=== PATIENT | female | born 1935 | race Caucasian/White ===

== ENCOUNTER → 2018-02-05 08:35 | Outpatient (REF) | payer MEDICARE, SELFPAY ==
[2018-02-05 09:26] LABS: Add Manual Diff / Slide Review NO; Basophils Percent Auto 1.4 % (0-2); Eosinophils Percent Auto 10.1 % (2-4); Hematocrit 40.4 % (36-46); Hemoglobin 13.2 g/dL (12.0-16.0); Lymphocytes Percent Auto 16.2 % (25-40); Mean Corpuscular HGB Conc 32.8 % (30-36); Mean Corpuscular Hemoglobin 28.8 PG (26-34); Mean Corpuscular Volume 87.8 fL (80-100); Neutrophils Absolute Auto 6100 /uL (3000-5900); Neutrophils Percent Auto 65.3 % (50-75); Platelet Count 229 X10^3/uL (150-400); Red Cell Distribution Width 14.6 % (11.6-14.8); White Blood Cell Count 9.4 X10^3/uL (4.5-11.0)
== END ==
LOC: LAB 08:35
PROVIDERS: Visit Provider Internal Medicine
DX: Z79.899 Other long term (current) drug therapy (principal)
CPT/HCPCS: 36415; 85025

== ENCOUNTER → 2018-04-07 08:03 | Outpatient (REF) | payer MEDICARE, SELFPAY ==
[2018-04-07 09:22] LABS: Hematocrit 39.9 % (36-46); Hemoglobin 12.7 g/dL (12.0-16.0)
== END ==
LOC: LAB 08:03
PROVIDERS: Visit Provider Nurse Practitioner Family
DX: Z79.899 Other long term (current) drug therapy (principal)
CPT/HCPCS: 36415; 85014; 85018

== ENCOUNTER → 2018-05-17 09:02 | Outpatient (REF) | payer MEDICARE, SELFPAY ==
[2018-05-17 09:22] LABS: Add Manual Diff / Slide Review NO; Basophils Percent Auto 1.2 % (0-2); Eosinophils Percent Auto 3.2 % (2-4); Hematocrit 36.4 % (36-46); Hemoglobin 11.8 g/dL (12.0-16.0); Lymphocytes Percent Auto 16.4 % (25-40); Mean Corpuscular HGB Conc 32.4 % (30-36); Mean Corpuscular Hemoglobin 29.7 PG (26-34); Mean Corpuscular Volume 91.7 fL (80-100); Monocytes Percent Auto 6.4 % (3-14); Neutrophils Absolute Auto 8000 /uL (3000-5900); Neutrophils Percent Auto 72.8 % (50-75); Platelet Count 201 X10^3/uL (150-400); Red Blood Cell Count 3.97 X10^6/uL (4.0-5.2); Red Cell Distribution Width 14.4 % (11.6-14.8); White Blood Cell Count 10.9 X10^3/uL (4.5-11.0)
[2018-05-17 09:38] LABS: Blood Urea Nitrogen 26 mg/dL (7-17); Calcium 8.7 mg/dL (8.4-10.2); Carbon Dioxide 30 mmol/L (22-32); Chloride 106 mmol/L (98-107); Estimated Glomerular Filt Rate 53.1 mL/min (>60); Glucose 78 mg/dL (80-110); HEMOLYSIS < 15 (0-50); Potassium 4.2 mmol/L (3.4-5.1); Sodium 145 mmol/L (137-145)
== END ==
LOC: LAB 09:02
PROVIDERS: Visit Provider Nurse Practitioner Family
DX: I10 Essential (primary) hypertension (principal); L40.9 Psoriasis, unspecified; Z92.29 Personal history of other drug therapy
CPT/HCPCS: 36415; 80048; 85025

== ENCOUNTER → 2018-06-02 10:35 | Outpatient (REF) | payer MEDICARE, SELFPAY ==
[2018-06-02 11:03] LABS: Hemoglobin 11.3 g/dL (12.0-16.0)
[2018-06-02 11:16] LABS: Hemoglobin A1C% w Est Avg Glu 5.4 % (4.0-6.0)
== END ==
LOC: LAB 10:35
PROVIDERS: Visit Provider Nurse Practitioner Family
DX: E11.9 Type 2 diabetes mellitus without complications (principal); Z92.29 Personal history of other drug therapy
CPT/HCPCS: 36415; 83036; 85014; 85018

== ENCOUNTER → 2018-06-07 07:00 | Outpatient (REF) | payer MEDICARE, SELFPAY ==
[2018-06-07 07:44] LABS: Add Manual Diff / Slide Review NO; Basophils Percent Auto 0.6 % (0-2); Eosinophils Percent Auto 1.4 % (2-4); Hematocrit 41.6 % (36-46); Hemoglobin 13.3 g/dL (12.0-16.0); Lymphocytes Percent Auto 11.4 % (25-40); Mean Corpuscular HGB Conc 32.1 % (30-36); Mean Corpuscular Hemoglobin 30.3 PG (26-34); Mean Corpuscular Volume 94.6 fL (80-100); Monocytes Percent Auto 6.8 % (3-14); Neutrophils Absolute Auto 9600 /uL (3000-5900); Neutrophils Percent Auto 79.8 % (50-75); Platelet Count 83 X10^3/uL (150-400); Red Cell Distribution Width 14.5 % (11.6-14.8)
[2018-06-07 07:59] LABS: BUN Creatinine Ratio 25.6 (6-22); Blood Urea Nitrogen 23 mg/dL (7-17); Calcium 8.6 mg/dL (8.4-10.2); Carbon Dioxide 35 mmol/L (22-32); Chloride 102 mmol/L (98-107); Estimated Glomerular Filt Rate 59.9 mL/min (>60); Glucose 114 mg/dL (80-110); Potassium 5.3 mmol/L (3.4-5.1); Sodium 146 mmol/L (137-145)
[2018-06-07 08:12] LABS: HEMOLYSIS 117 (0-50)
== END ==
LOC: LAB 07:00
PROVIDERS: Visit Provider Internal Medicine
DX: J18.9 Pneumonia, unspecified organism (principal)
CPT/HCPCS: 36415; 80048; 83880; 85025

== ENCOUNTER → 2018-06-18 07:43 | Outpatient (REF) | payer MEDICARE, SELFPAY ==
[2018-06-18 08:05] LABS: Add Manual Diff / Slide Review NO; Basophils Percent Auto 0.8 % (0-2); Eosinophils Percent Auto 1.9 % (2-4); Hematocrit 36.7 % (36-46); Hemoglobin 11.6 g/dL (12.0-16.0); Lymphocytes Percent Auto 15.3 % (25-40); Mean Corpuscular HGB Conc 31.7 % (30-36); Mean Corpuscular Hemoglobin 29.6 PG (26-34); Mean Corpuscular Volume 93.2 fL (80-100); Monocytes Percent Auto 8.2 % (3-14); Neutrophils Absolute Auto 9500 /uL (3000-5900); Neutrophils Percent Auto 73.8 % (50-75); Platelet Count 181 X10^3/uL (150-400); Red Blood Cell Count 3.93 X10^6/uL (4.0-5.2); Red Cell Distribution Width 14.3 % (11.6-14.8); White Blood Cell Count 12.8 X10^3/uL (4.5-11.0)
[2018-06-18 08:25] LABS: Alanine Aminotransferase 39 IU/L (9-52); Albumin 3.3 g/dL (3.5-5.0); Albumin Globulin Ratio 1.2 (1.0-2.8); Aspartate Aminotransferase 25 IU/L (14-36); Bilirubin Total 0.6 mg/dL (0.2-1.3); Blood Urea Nitrogen 27 mg/dL (7-17); Calcium 8.4 mg/dL (8.4-10.2); Chloride 97 mmol/L (98-107); Estimated Glomerular Filt Rate 59.9 mL/min (>60); Globulin 2.7 g/dL (1.7-4.1); Glucose 91 mg/dL (80-110); HEMOLYSIS < 15 (0-50); Potassium 4.2 mmol/L (3.4-5.1); Sodium 144 mmol/L (137-145)
[2018-06-18 08:27] LABS: Alkaline Phosphatase < 20 U/L (38-126)
[2018-06-18 08:34] LABS: Carbon Dioxide 39 mmol/L (22-32)
[2018-06-18 08:43] LABS: B Type Natriuretic Peptide < 100.0 (<100)
[2018-06-18 08:48] LABS: Thyroid Stimulating Hormone 0.98 uIU/mL (0.47-4.68)
== END ==
LOC: LAB 07:43
PROVIDERS: Visit Provider Internal Medicine
DX: J44.9 Chronic obstructive pulmonary disease, unspecified (principal); I50.9 Heart failure, unspecified
CPT/HCPCS: 36415; 80053; 83880; 84443; 85025

== ENCOUNTER → 2018-06-25 07:04 | Outpatient (REF) | payer MEDICARE, SELFPAY ==
[2018-06-25 07:33] LABS: Blood Urea Nitrogen 24 mg/dL (7-17); Calcium 8.7 mg/dL (8.4-10.2); Chloride 99 mmol/L (98-107); Estimated Glomerular Filt Rate 53.1 mL/min (>60); Glucose 125 mg/dL (80-110); HEMOLYSIS < 15 (0-50); Potassium 4.5 mmol/L (3.4-5.1); Sodium 144 mmol/L (137-145)
[2018-06-25 07:55] LABS: Carbon Dioxide 37 mmol/L (22-32)
== END ==
LOC: LAB 07:04
PROVIDERS: Visit Provider Internal Medicine
DX: I50.9 Heart failure, unspecified (principal)
CPT/HCPCS: 36415; 80048

== ENCOUNTER → 2018-08-03 16:03 | Outpatient (REF) | payer MEDICARE, SELFPAY ==
[2018-08-03 18:17] LABS: Campylobacter Not Detected (Not Detect); Clostridium difficile toxin AB Not Detected (Not Detect); Enteroaggregative E.coli Not Detected (Not Detect); Enteropathogenic E.coli Detected (Not Detect); Enterotoxigenic E.coli It/st Not Detected (Not Detect); Plesiomonsa shigelloides Not Detected (Not Detect); Salmonella Not Detected (Not Detect); Shiga-like toxin-prod E.coli Not Detected (Not Detect); Vibrio Not Detected (Not Detect); Vibrio cholerae Not Detected (Not Detect); Yersinia enterocolitica Not Detected (Not Detect)
[2018-08-03 18:18] LABS: Adenovirus F 40/41 Not Detected (Not Detect); Astrovirus Not Detected (Not Detect); Cryptosporidium Not Detected (Not Detect); Cyclospora cayetanensis Not Detected (Not Detect); Entamoeba histolytica Not Detected (Not Detect); Giardia lamblia Not Detected (Not Detect); Norovirus GI/GII Not Detected (Not Detect); Rotavirus A Not Detected (Not Detect); Sapovirus Not Detected (Not Detect); Shigella/Enteroinvasive E.coli Not Detected (Not Detect)
== END ==
LOC: LAB 16:03
PROVIDERS: Visit Provider Internal Medicine
DX: R19.7 Diarrhea, unspecified (principal)
CPT/HCPCS: 87507

== ENCOUNTER → 2018-08-04 08:04 | Outpatient (REF) | payer MEDICARE, SELFPAY ==
[2018-08-04 08:37] LABS: Add Manual Diff / Slide Review NO; Basophils Percent Auto 0.9 % (0-2); Eosinophils Percent Auto 4.5 % (2-4); Hematocrit 34.3 % (36-46); Hemoglobin 11.3 g/dL (12.0-16.0); Lymphocytes Percent Auto 16.4 % (25-40); Mean Corpuscular Hemoglobin 29.9 PG (26-34); Mean Corpuscular Volume 90.6 fL (80-100); Monocytes Percent Auto 7.1 % (3-14); Neutrophils Absolute Auto 6700 /uL (3000-5900); Neutrophils Percent Auto 71.1 % (50-75); Platelet Count 225 X10^3/uL (150-400); Red Blood Cell Count 3.78 X10^6/uL (4.0-5.2); Red Cell Distribution Width 14.5 % (11.6-14.8); White Blood Cell Count 9.4 X10^3/uL (4.5-11.0)
[2018-08-04 08:55] LABS: Alanine Aminotransferase 22 IU/L (9-52); Albumin 3.6 g/dL (3.5-5.0); Albumin Globulin Ratio 1.3 (1.0-2.8); Alkaline Phosphatase 25 U/L (38-126); Aspartate Aminotransferase 25 IU/L (14-36); Bilirubin Total 0.4 mg/dL (0.2-1.3); Blood Urea Nitrogen 25 mg/dL (7-17); Calcium 8.7 mg/dL (8.4-10.2); Carbon Dioxide 32 mmol/L (22-32); Chloride 101 mmol/L (98-107); Estimated Glomerular Filt Rate 53.1 mL/min (>60); Globulin 2.8 g/dL (1.7-4.1); Glucose 142 mg/dL (80-110); HEMOLYSIS < 15 (0-50); Potassium 4.1 mmol/L (3.4-5.1); Sodium 143 mmol/L (137-145); Total Protein 6.4 g/dL (6.3-8.2)
[2018-08-04 09:23] LABS: Thyroid Stimulating Hormone 2.19 uIU/mL (0.47-4.68)
== END ==
LOC: LAB 08:04
PROVIDERS: Visit Provider Nurse Practitioner Family
DX: I50.9 Heart failure, unspecified (principal); D72.829 Elevated white blood cell count, unspecified; E11.9 Type 2 diabetes mellitus without complications; R19.7 Diarrhea, unspecified; R53.1 Weakness
CPT/HCPCS: 36415; 80053; 83880; 84443; 85025

== ENCOUNTER → 2018-10-01 07:36 | Outpatient (REF) | payer MEDICARE, SELFPAY ==
[2018-10-01 09:14] LABS: Add Manual Diff / Slide Review NO; Basophils Percent Auto 1.2 % (0-2); Hematocrit 35.4 % (36-46); Hemoglobin 11.6 g/dL (12.0-16.0); Lymphocytes Percent Auto 17.6 % (25-40); Mean Corpuscular HGB Conc 32.7 % (30-36); Mean Corpuscular Hemoglobin 29.8 PG (26-34); Mean Corpuscular Volume 91.3 fL (80-100); Monocytes Percent Auto 8.2 % (3-14); Neutrophils Absolute Auto 6300 /uL (1500-7000); Platelet Count 227 X10^3/uL (150-400); Red Blood Cell Count 3.88 X10^6/uL (4.0-5.2); Red Cell Distribution Width 13.6 % (11.6-14.8); White Blood Cell Count 9.1 X10^3/uL (4.5-11.0)
[2018-10-01 09:23] LABS: Hemoglobin A1C% w Est Avg Glu 5.8 % (4.0-6.0)
[2018-10-01 09:31] LABS: Alanine Aminotransferase 21 IU/L (9-52); Albumin 3.6 g/dL (3.5-5.0); Albumin Globulin Ratio 1.2 (1.0-2.8); Alkaline Phosphatase 26 U/L (38-126); Aspartate Aminotransferase 18 IU/L (14-36); Bilirubin Total 0.4 mg/dL (0.2-1.3); Blood Urea Nitrogen 27 mg/dL (7-17); Calcium 8.9 mg/dL (8.4-10.2); Carbon Dioxide 31 mmol/L (22-32); Chloride 102 mmol/L (98-107); Cholesterol 134 mg/dL (140-199); Glucose 111 mg/dL (80-110); HDL Cholesterol 40 mg/dL (40-60); HEMOLYSIS < 15 (0-50); LDL Cholesterol Calculated 66 mg/dL (<100); Sodium 141 mmol/L (137-145); Total Protein 6.6 g/dL (6.3-8.2); Triglycerides 139 mg/dL (35-150)
[2018-10-01 10:15] LABS: Vitamin B12 729 pg/mL (239-931)
== END ==
LOC: LAB 07:36
PROVIDERS: Visit Provider Internal Medicine
DX: E11.9 Type 2 diabetes mellitus without complications (principal); R79.89 Other specified abnormal findings of blood chemistry; E53.8 Deficiency of other specified B group vitamins
CPT/HCPCS: 36415; 80053; 80061; 82607; 83036; 85025

== ENCOUNTER → 2018-12-24 08:52 | Outpatient (REF) | payer MEDICARE, SELFPAY ==
[2018-12-24 09:32] LABS: Add Manual Diff / Slide Review NO; Basophils Absolute Auto 100 /uL (0-100); Basophils Percent Auto 1.4 % (0-2); Eosinophils Absolute Auto 300 /uL (0-450); Eosinophils Percent Auto 2.8 % (2-4); Hemoglobin 12.3 g/dL (12.0-16.0); Lymphocytes Absolute Auto 1700 /uL (1100-4500); Lymphocytes Percent Auto 18.4 % (25-40); Mean Corpuscular HGB Conc 32.3 % (30-36); Mean Corpuscular Hemoglobin 29.2 PG (26-34); Mean Corpuscular Volume 90.1 fL (80-100); Monocytes Absolute Auto 800 /uL (0-900); Monocytes Percent Auto 8.3 % (3-14); Neutrophils Absolute Auto 6500 /uL (1500-7000); Neutrophils Percent Auto 69.1 % (50-75); Platelet Count 232 X10^3/uL (150-400); Red Blood Cell Count 4.22 X10^6/uL (4.0-5.2); Red Cell Distribution Width 13.9 % (11.6-14.8); White Blood Cell Count 9.4 X10^3/uL (4.5-11.0)
[2018-12-24 10:00] LABS: Hemoglobin A1C% w Est Avg Glu 6.6 % (4.0-6.0)
[2018-12-24 10:08] LABS: BUN Creatinine Ratio 23.6 (6-22); Blood Urea Nitrogen 26 mg/dL (7-17); Calcium 8.8 mg/dL (8.4-10.2); Carbon Dioxide 31 mmol/L (22-32); Chloride 101 mmol/L (98-107); Estimated Glomerular Filt Rate 47.4 mL/min (>60); Glucose 169 mg/dL (80-110); HEMOLYSIS < 15 (0-50); Potassium 4.1 mmol/L (3.4-5.1); Sodium 142 mmol/L (137-145)
== END ==
LOC: LAB 08:52
PROVIDERS: Visit Provider Nurse Practitioner Family
DX: I10 Essential (primary) hypertension (principal); E11.9 Type 2 diabetes mellitus without complications; L40.9 Psoriasis, unspecified
CPT/HCPCS: 36415; 80048; 83036; 85025

== ENCOUNTER → 2019-02-02 08:38 | Outpatient (ROUT) | payer MEDICARE, SELFPAY ==
[2019-02-02 11:38] LABS: BUN Creatinine Ratio 22.7 (6-22); Blood Urea Nitrogen 25 mg/dL (7-17); Calcium 8.6 mg/dL (8.4-10.2); Carbon Dioxide 34 mmol/L (22-32); Chloride 97 mmol/L (98-107); Estimated Glomerular Filt Rate 47.4 mL/min (>60); Glucose 206 mg/dL (80-110); HEMOLYSIS < 15 (0-50); Potassium 4.1 mmol/L (3.4-5.1); Sodium 140 mmol/L (137-145)
== END ==
PROVIDERS: Visit Provider Nurse Practitioner Family
DX: N18.9 Chronic kidney disease, unspecified (principal)
CPT/HCPCS: 36415; 80048

== ENCOUNTER → 2019-03-25 08:42 | Outpatient (ROUT) | payer MEDICARE, SELFPAY ==
[2019-03-25 09:54] LABS: Blood Urea Nitrogen 29 mg/dL (7-17); Calcium 8.8 mg/dL (8.4-10.2); Carbon Dioxide 35 mmol/L (22-32); Chloride 101 mmol/L (98-107); Glucose 131 mg/dL (80-110); HEMOLYSIS < 15 (0-50); Potassium 4.5 mmol/L (3.4-5.1); Sodium 143 mmol/L (137-145)
== END ==
PROVIDERS: Visit Provider Registered Nurse
DX: N18.9 Chronic kidney disease, unspecified (principal)
CPT/HCPCS: 36415; 80048

== ENCOUNTER → 2019-05-09 07:21 | Outpatient (ROUT) | payer MEDICARE, SELFPAY ==
[2019-05-09 07:45] LABS: Add Manual Diff / Slide Review NO; Basophils Absolute Auto 100 /uL (0-100); Basophils Percent Auto 0.9 % (0-2); Eosinophils Absolute Auto 400 /uL (0-450); Eosinophils Percent Auto 3.8 % (2-4); Hematocrit 38.2 % (36-46); Hemoglobin 12.6 g/dL (12.0-16.0); Lymphocytes Absolute Auto 2000 /uL (1100-4500); Lymphocytes Percent Auto 18.7 % (25-40); Mean Corpuscular HGB Conc 32.9 % (30-36); Mean Corpuscular Hemoglobin 29.4 PG (26-34); Mean Corpuscular Volume 89.4 fL (80-100); Monocytes Absolute Auto 800 /uL (0-900); Neutrophils Absolute Auto 7200 /uL (1500-7000); Neutrophils Percent Auto 68.6 % (50-75); Platelet Count 191 X10^3/uL (150-400); Red Blood Cell Count 4.28 X10^6/uL (4.0-5.2); Red Cell Distribution Width 14.6 % (11.6-14.8); White Blood Cell Count 10.4 X10^3/uL (4.5-11.0)
[2019-05-09 07:49] LABS: Hemoglobin A1C% w Est Avg Glu 6.9 % (4.0-6.0)
[2019-05-09 07:56] LABS: Blood Urea Nitrogen 28 mg/dL (7-17); Calcium 8.9 mg/dL (8.4-10.2); Carbon Dioxide 35 mmol/L (22-32); Chloride 100 mmol/L (98-107); Glucose 174 mg/dL (80-110); HEMOLYSIS < 15 (0-50); Potassium 4.2 mmol/L (3.4-5.1); Sodium 141 mmol/L (137-145)
== END ==
PROVIDERS: Visit Provider Registered Nurse
DX: L40.9 Psoriasis, unspecified (principal); N18.9 Chronic kidney disease, unspecified; E11.9 Type 2 diabetes mellitus without complications; Z79.899 Other long term (current) drug therapy
CPT/HCPCS: 36415; 80048; 83036; 85025

== ENCOUNTER → 2019-06-15 08:21 | Outpatient (ROUT) | payer MEDICARE, SELFPAY ==
[2019-06-15 08:37] LABS: Hematocrit 38.6 % (36-46); Hemoglobin 12.2 g/dL (12.0-16.0)
== END ==
PROVIDERS: Visit Provider Nurse Practitioner Family
DX: Z79.899 Other long term (current) drug therapy (principal)
CPT/HCPCS: 36415; 85014; 85018

== ENCOUNTER → 2019-06-20 09:28 | Outpatient (ROUT) | payer MEDICARE, SELFPAY ==
[2019-06-20 10:51] LABS: Add Manual Diff / Slide Review NO; Basophils Absolute Auto 100 /uL (0-100); Basophils Percent Auto 0.9 % (0-2); Eosinophils Absolute Auto 800 /uL (0-450); Eosinophils Percent Auto 7.5 % (2-4); Hematocrit 38.2 % (36-46); Hemoglobin 12.5 g/dL (12.0-16.0); Lymphocytes Absolute Auto 2100 /uL (1100-4500); Lymphocytes Percent Auto 20.5 % (25-40); Mean Corpuscular HGB Conc 32.8 % (30-36); Mean Corpuscular Hemoglobin 29.4 PG (26-34); Mean Corpuscular Volume 89.8 fL (80-100); Monocytes Absolute Auto 800 /uL (0-900); Monocytes Percent Auto 7.7 % (3-14); Neutrophils Absolute Auto 6400 /uL (1500-7000); Neutrophils Percent Auto 63.4 % (50-75); Platelet Count 214 X10^3/uL (150-400); Red Blood Cell Count 4.26 X10^6/uL (4.0-5.2); Red Cell Distribution Width 15.2 % (11.6-14.8); White Blood Cell Count 10.2 X10^3/uL (4.5-11.0)
[2019-06-20 11:10] LABS: Blood Urea Nitrogen 30 mg/dL (7-17); Calcium 8.8 mg/dL (8.4-10.2); Carbon Dioxide 36 mmol/L (22-32); Chloride 96 mmol/L (98-107); Glucose 188 mg/dL (80-110); HEMOLYSIS < 15 (0-50); Sodium 140 mmol/L (137-145)
== END ==
PROVIDERS: Visit Provider Nurse Practitioner Family
DX: R60.9 Edema, unspecified (principal); R06.02 Shortness of breath
CPT/HCPCS: 36415; 80048; 85025

== ENCOUNTER → 2019-07-08 07:17 | Outpatient (ROUT) | payer MEDICARE, SELFPAY ==
[2019-07-08 08:12] LABS: Add Manual Diff / Slide Review NO; Basophils Absolute Auto 100 /uL (0-100); Basophils Percent Auto 0.9 % (0-2); Eosinophils Absolute Auto 700 /uL (0-450); Eosinophils Percent Auto 6.2 % (2-4); Hematocrit 39.1 % (36-46); Hemoglobin 12.7 g/dL (12.0-16.0); Lymphocytes Absolute Auto 1900 /uL (1100-4500); Lymphocytes Percent Auto 17.7 % (25-40); Mean Corpuscular HGB Conc 32.3 % (30-36); Mean Corpuscular Hemoglobin 29.4 PG (26-34); Mean Corpuscular Volume 90.8 fL (80-100); Monocytes Absolute Auto 900 /uL (0-900); Monocytes Percent Auto 8.1 % (3-14); Neutrophils Absolute Auto 7200 /uL (1500-7000); Neutrophils Percent Auto 67.1 % (50-75); Platelet Count 214 X10^3/uL (150-400); Red Blood Cell Count 4.31 X10^6/uL (4.0-5.2); Red Cell Distribution Width 15.4 % (11.6-14.8); White Blood Cell Count 10.7 X10^3/uL (4.5-11.0)
[2019-07-08 08:22] LABS: BUN Creatinine Ratio 29.1 (6-22); Blood Urea Nitrogen 32 mg/dL (7-17); Calcium 8.9 mg/dL (8.4-10.2); Carbon Dioxide 32 mmol/L (22-32); Chloride 100 mmol/L (98-107); Estimated Glomerular Filt Rate 47.4 mL/min (>60); Glucose 211 mg/dL (80-110); HEMOLYSIS < 15 (0-50); Potassium 4.5 mmol/L (3.4-5.1); Sodium 138 mmol/L (137-145)
[2019-07-08 11:57] LABS: B Type Natriuretic Peptide 378 (<100)
== END ==
PROVIDERS: Visit Provider Nurse Practitioner Family
DX: Z79.899 Other long term (current) drug therapy (principal); J44.9 Chronic obstructive pulmonary disease, unspecified; I50.89 Other heart failure
CPT/HCPCS: 36415; 80048; 83880; 85025

== ENCOUNTER → 2019-08-10 07:29 | Outpatient (ROUT) | payer MEDICARE, SELFPAY ==
[2019-08-10 08:42] LABS: Add Manual Diff / Slide Review NO; Basophils Absolute Auto 100 /uL (0-100); Basophils Percent Auto 0.7 % (0-2); Eosinophils Absolute Auto 800 /uL (0-450); Eosinophils Percent Auto 8.8 % (2-4); Hematocrit 38.1 % (36-46); Hemoglobin 12.4 g/dL (12.0-16.0); Lymphocytes Absolute Auto 1600 /uL (1100-4500); Lymphocytes Percent Auto 17.2 % (25-40); Mean Corpuscular HGB Conc 32.7 % (30-36); Mean Corpuscular Hemoglobin 29.5 PG (26-34); Mean Corpuscular Volume 90.5 fL (80-100); Monocytes Absolute Auto 800 /uL (0-900); Neutrophils Absolute Auto 6200 /uL (1500-7000); Neutrophils Percent Auto 65.3 % (50-75); Platelet Count 202 X10^3/uL (150-400); Red Blood Cell Count 4.21 X10^6/uL (4.0-5.2); Red Cell Distribution Width 14.8 % (11.6-14.8); White Blood Cell Count 9.5 X10^3/uL (4.5-11.0)
[2019-08-10 08:54] LABS: BUN Creatinine Ratio 25.8 (6-22); Blood Urea Nitrogen 31 mg/dL (7-17); Calcium 9.1 mg/dL (8.4-10.2); Carbon Dioxide 35 mmol/L (22-32); Chloride 101 mmol/L (98-107); Estimated Glomerular Filt Rate 42.9 mL/min (>60); Glucose 160 mg/dL (80-110); HEMOLYSIS < 15 (0-50); Potassium 4.4 mmol/L (3.4-5.1); Sodium 142 mmol/L (137-145)
[2019-08-10 09:45] LABS: Vitamin B12 844 pg/mL (239-931)
== END ==
PROVIDERS: Visit Provider Nurse Practitioner Family
DX: R60.9 Edema, unspecified (principal); Z79.899 Other long term (current) drug therapy
CPT/HCPCS: 36415; 80048; 82607; 85025

== ENCOUNTER → 2019-09-12 07:50 | Outpatient (ROUT) | payer MEDICARE, SELFPAY ==
[2019-09-12 08:33] LABS: BUN Creatinine Ratio 21.8 (6-22); Blood Urea Nitrogen 24 mg/dL (7-17); Calcium 8.8 mg/dL (8.4-10.2); Carbon Dioxide 35 mmol/L (22-32); Chloride 101 mmol/L (98-107); Estimated Glomerular Filt Rate 47.3 mL/min (>60); Glucose 162 mg/dL (80-110); HEMOLYSIS < 15 (0-50); Potassium 4.3 mmol/L (3.4-5.1); Sodium 141 mmol/L (137-145)
== END ==
PROVIDERS: Visit Provider Registered Nurse
DX: N17.9 Acute kidney failure, unspecified (principal)
CPT/HCPCS: 36415; 80048

== ENCOUNTER → 2019-09-23 07:33 | Outpatient (ROUT) | payer MEDICARE, SELFPAY ==
[2019-09-23 09:05] LABS: Blood Urea Nitrogen 24 mg/dL (7-17); Calcium 8.7 mg/dL (8.4-10.2); Carbon Dioxide 39 mmol/L (22-32); Chloride 99 mmol/L (98-107); Estimated Glomerular Filt Rate 52.8 mL/min (>60); Glucose 173 mg/dL (80-110); HEMOLYSIS < 15 (0-50); Potassium 4.1 mmol/L (3.4-5.1); Sodium 141 mmol/L (137-145)
== END ==
PROVIDERS: Visit Provider Internal Medicine
DX: Z98.890 Other specified postprocedural states (principal)
CPT/HCPCS: 36415; 80048

== ENCOUNTER → 2019-10-03 07:13 | Outpatient (ROUT) | payer MEDICARE, SELFPAY ==
[2019-10-03 10:11] LABS: BUN Creatinine Ratio 23.6 (6-22); Blood Urea Nitrogen 26 mg/dL (7-17); Calcium 8.9 mg/dL (8.4-10.2); Carbon Dioxide 35 mmol/L (22-32); Chloride 98 mmol/L (98-107); Estimated Glomerular Filt Rate 47.3 mL/min (>60); Glucose 162 mg/dL (80-110); HEMOLYSIS < 15 (0-50); Potassium 4.1 mmol/L (3.4-5.1); Sodium 138 mmol/L (137-145)
== END ==
PROVIDERS: Visit Provider Registered Nurse
DX: N17.9 Acute kidney failure, unspecified (principal)
CPT/HCPCS: 36415; 80048

== ENCOUNTER → 2019-11-04 07:29 | Outpatient (ROUT) | payer MEDICARE, SELFPAY ==
[2019-11-04 08:31] LABS: Blood Urea Nitrogen 23 mg/dL (7-17); Calcium 8.7 mg/dL (8.4-10.2); Carbon Dioxide 36 mmol/L (22-32); Chloride 98 mmol/L (98-107); Estimated Glomerular Filt Rate 52.8 mL/min (>60); Glucose 212 mg/dL (80-110); HEMOLYSIS < 15 (0-50); Sodium 140 mmol/L (137-145)
== END ==
PROVIDERS: Visit Provider Nurse Practitioner Family
DX: Z79.899 Other long term (current) drug therapy (principal)
CPT/HCPCS: 36415; 80048

== ENCOUNTER 2019-11-15 01:31 | Emergency (ER) | payer MEDICARE, SELFPAY ==
[2019-11-15 01:45] VITALS: BP 132/64; PULSE 59; RESP 20; TEMP 37; O2SAT 93; BMI 39.6
--- NOTE | 2019-11-15 01:50 | PC.NURSE ---
drawn by zhao mills
[2019-11-15] MEDS: SODIUM CHLORIDE 0.9% 1,000 ML 500 ML IV (01:58)
--- NOTE | 2019-11-15 02:02 | ED.GENADULT ---
HPI - General Adult General Chief complaint: Diabetic Problem Stated complaint: Elevated Blood sugar Time Seen by Provider: 11/15/19 01:36 Source: patient and EMS Mode of arrival: EMS Limitations: no limitations History of Present Illness HPI narrative: Patient is an 84-year-old female. Is an insulin-dependent type 2 diabetic. Also was on oxygen. Last evening during her regular blood sugar checks it was noticed that her blood sugar was reading high on the monitor at her nursing facility. She was dose multiple times with insulin per sliding scale when it still remained high. Patient has no complaints. It was felt that she should come to the emergency department for evaluation due to the continued high blood sugars. Related Data Allergies Allergy/AdvReac Type Severity Reaction Status Date / Time gabapentin [GABAPENTIN] Allergy Unknown DIZZINESS Unverified 12/30/17 11:59 NSAIDS (Non-Steroidal Allergy Unknown ADVISED TO Unverified 12/30/17 11:59 Anti-Inflamma AVOID [NSAIDS (NON-STEROIDAL ANTI-INFLAMMA] Review of Systems Constitutional Constitutional: Denies fever(s) and Denies headache(s) ENT Ears, Nose, Mouth, and Throat: Denies headache(s) Cardiovascular Cardiovascular: Denies chest pain, Denies rapid heart rate, Denies edema, Denies palpitations and Denies dyspnea Respiratory Respiratory: Denies cough and Denies dyspnea Gastrointestinal Gastrointestinal: Denies abdominal pain, Denies nausea and Denies vomiting Genitourinary Genitourinary: Denies dysuria Integumentary/Breasts Skin/Breast: Reports rash Neurologic Neurologic: Denies behavioral changes, Denies confusion, Denies headache(s) and Denies paresthesias Psychiatric Psychiatric: Denies behavioral changes and Denies confusion Endocrine Endocrine: Denies palpitations Hematologic/Lymphatic Hematologic/Lymphatic: Denies easy bleeding and Denies easy bruising Patient History Medical History Cerebral microvascular disease (Inactive) Diabetes (Acute) Insomnia (Inactive) Psoriasis (Acute) Social History Smoking Status: Former smoker Smoking Status: Former smoker alcohol intake frequency: 0-2 drinks per day Substance Use Type: does not use Exam Initial Vital Signs Initial Vital Signs: Vital Signs Temperature 98.6 F 11/15/19 01:45 Pulse Rate 59 L 11/15/19 01:45 Respiratory Rate 20 02/25/20 01:45 Blood Pressure 132/64 11/15/19 01:45 Pulse Oximetry 93 11/15/19 01:45 Const General: cooperative and comfortable Limitations: mental status not altered HENMT Head: normal to inspection and normocephalic Resp Effort & Inspection: normal respiratory effort Auscultation: clear to auscultation bilaterally Cardio Rate: regular rate Rhythm: regular rhythm GI Inspection: non-distended Palpation: soft Skin Other: Patient with psoriasis from her mid back down around her buttocks down the inside of her thighs. Has some areas of excoriation. There is no surrounding erythema. No signs of a superinfection over this area. Neuro General: alert, awake and oriented x3 Cognition: normal cognition Speech: speech normal Extrem General: normal to inspection and capillary refill normal Psych Appearance: well kempt Course Orders Ordered: ED Orders 11/15/19 01:50 Complete Blood Count AUTO DIFF Stat Comprehensive Metabolic Panel Stat Ketones (Beta-Hydroxybutyrate) Stat Lipase Stat Magnesium Stat Phosphorous Stat Procalcitonin Stat Troponin I Stat 11/15/19 02:35 XR chest 1V Stat 11/15/19 02:40 EKG-12 Lead Stat 11/15/19 03:50 Urinalysis and Microscopic Stat Urine Culture Stat 11/15/19 04:00 Glucose Stat Troponin I Stat Discontinued Medications Sodium Chloride (Normal Saline 0.9%) 1,000 mls @ 500 mls/hr IV BOLUS ONE Stop: 11/15/19 03:36 Last Infusion: 11/15/19 04:04 Dose: 0 mls/hr Documented by: Admin: 11/15/19 01:58 Dose: 500 mls/hr Documented by: TANI Vital Signs Vital signs: Vital Signs - 8 hr 11/15/19 01:45 Temperature 98.6 F Pulse Rate 59 L Respiratory Rate 20 Blood Pressure 132/64 Pulse Oximetry 93 Medical Decision Making Medical Records Medical records reviewed: Yes I reviewed the patient's medical records. Lab Data Lab results reviewed: Yes I reviewed the patient's lab results. Result diagrams: 11/15/19 01:50 11/15/19 04:00 Labs: Lab Results 11/15/19 11/15/19 11/15/19 Range/Units 01:50 01:50 01:50 WBC 14.0 H (4.5-11.0) X10^3/uL RBC 4.15 (4.0-5.2) X10^6/uL Hgb 12.8 (12.0-16.0) g/dL Hct 39.5 (36-46) % MCV 95.1 (80-100) fL MCH 30.8 (26-34) PG MCHC 32.4 (30-36) % RDW 14.4 (11.6-14.8) % Plt Count 206 (150-400) X10^3/uL Neut % (Auto) 85.9 H (50-75) % Lymph % (Auto) 7.3 L (25-40) % [place] % (Auto) 6.2 (3-14) % Eos % (Auto) 0.1 L (2-4) % Baso % (Auto) 0.5 (0-2) % Neut # (Auto) 90444 H (9329-2623) /uL Lymph # (Auto) 1000 L (0279-4852) /uL [place] # (Auto) 900 (0-900) /uL Eos # (Auto) 0 (0-450) /uL Baso # (Auto) 100 (0-100) /uL Sodium 137 (137-145) mmol/L Potassium 5.1 (3.4-5.1) mmol/L Chloride 95 L (98-107) mmol/L Carbon Dioxide 32 (22-32) mmol/L BUN 53 H (7-17) mg/dL Creatinine 1.60 H (0.52-1.04) mg/dL Estimated GFR 30.7 L (>60) mL/min BUN/Creatinine Ratio 33.1 H (6-22) Glucose 494 H* (80-110) mg/dL Calcium 8.9 (8.4-10.2) mg/dL Phosphorus 5.7 H (2.8-4.1) mg/dL Magnesium 2.4 H (1.6-2.3) mg/dL Total Bilirubin 0.4 (0.2-1.3) mg/dL AST 26 (14-36) IU/L ALT 19 (<35) IU/L Alkaline Phosphatase 29 L (38-126) U/L Troponin I 0.064 H (0.01-0.034) ng/mL Total Protein 7.6 (6.3-8.2) g/dL Albumin 3.9 (3.5-5.0) g/dL Globulin 3.7 (1.7-4.1) g/dL Albumin/Globulin Ratio 1.1 (1.0-2.8) Lipase 68 (23-300) U/L Procalcitonin (<0.5) ng/mL Urine Color Urine Appearance Urine pH (4.5-8.0) Ur Specific [place] (1.000-1.035) Urine Protein (Negative) Urine Glucose (UA) (Negative) g/dL Urine Ketones (NEGATIVE) Urine Occult Blood (Negative) Urine Nitrate (Negative) Urine Bilirubin (NEGATIVE) Urine Urobilinogen (0.2) E.U./dL Ur Leukocyte Esterase (NEGATIVE) Urine RBC (0-5/HPF) Urine WBC (0-5/HPF) Ur Squamous Epith Cells (0-5/HPF) Urine Bacteria (None) Ur Culture Indicated? Ketones 0.15 (<0.27) mmol/L 11/15/19 11/15/19 11/15/19 Range/Units 01:50 03:50 04:00 WBC (4.5-11.0) X10^3/uL RBC (4.0-5.2) X10^6/uL Hgb (12.0-16.0) g/dL Hct (36-46) % MCV (80-100) fL MCH (26-34) PG MCHC (30-36) % RDW (11.6-14.8) % Plt Count (150-400) X10^3/uL Neut % (Auto) (50-75) % Lymph % (Auto) (25-40) % [place] % (Auto) (3-14) % Eos % (Auto) (2-4) % Baso % (Auto) (0-2) % Neut # (Auto) (8190-9980) /uL Lymph # (Auto) (3721-8307) /uL [place] # (Auto) (0-900) /uL Eos # (Auto) (0-450) /uL Baso # (Auto) (0-100) /uL Sodium (137-145) mmol/L Potassium (3.4-5.1) mmol/L Chloride (98-107) mmol/L Carbon Dioxide (22-32) mmol/L BUN (7-17) mg/dL Creatinine (0.52-1.04) mg/dL Estimated GFR (>60) mL/min BUN/Creatinine Ratio (6-22) Glucose 321 H D (80-110) mg/dL Calcium (8.4-10.2) mg/dL Phosphorus (2.8-4.1) mg/dL Magnesium (1.6-2.3) mg/dL Total Bilirubin (0.2-1.3) mg/dL AST (14-36) IU/L ALT (<35) IU/L Alkaline Phosphatase (38-126) U/L Troponin I (0.01-0.034) ng/mL Total Protein (6.3-8.2) g/dL Albumin (3.5-5.0) g/dL Globulin (1.7-4.1) g/dL Albumin/Globulin Ratio (1.0-2.8) Lipase (23-300) U/L Procalcitonin 0.16 (<0.5) ng/mL Urine Color Yellow Urine Appearance Sl cloudy Urine pH 5.0 (4.5-8.0) Ur Specific [place] 1.020 (1.000-1.035) Urine Protein Trace H (Negative) Urine Glucose (UA) 2+ H (Negative) g/dL Urine Ketones Negative (NEGATIVE) Urine Occult Blood 3+ H (Negative) Urine Nitrate Negative (Negative) Urine Bilirubin Negative (NEGATIVE) Urine Urobilinogen 0.2 (0.2) E.U./dL Ur Leukocyte Esterase Negative (NEGATIVE) Urine RBC 10-30/hpf H (0-5/HPF) Urine WBC 5-10/hpf H (0-5/HPF) Ur Squamous Epith Cells 5-10 /hpf H (0-5/HPF) Urine Bacteria Few (2-10) H (None) Ur Culture Indicated? Culture not indicate Ketones (<0.27) mmol/L 11/15/19 Range/Units 04:00 WBC (4.5-11.0) X10^3/uL RBC (4.0-5.2) X10^6/uL Hgb (12.0-16.0) g/dL Hct (36-46) % MCV (80-100) fL MCH (26-34) PG MCHC (30-36) % RDW (11.6-14.8) % Plt Count (150-400) X10^3/uL Neut % (Auto) (50-75) % Lymph % (Auto) (25-40) % [place] % (Auto) (3-14) % Eos % (Auto) (2-4) % Baso % (Auto) (0-2) % Neut # (Auto) (4143-1580) /uL Lymph # (Auto) (2847-0359) /uL [place] # (Auto) (0-900) /uL Eos # (Auto) (0-450) /uL Baso # (Auto) (0-100) /uL Sodium (137-145) mmol/L Potassium (3.4-5.1) mmol/L Chloride (98-107) mmol/L Carbon Dioxide (22-32) mmol/L BUN (7-17) mg/dL Creatinine (0.52-1.04) mg/dL Estimated GFR (>60) mL/min BUN/Creatinine Ratio (6-22) Glucose (80-110) mg/dL Calcium (8.4-10.2) mg/dL Phosphorus (2.8-4.1) mg/dL Magnesium (1.6-2.3) mg/dL Total Bilirubin (0.2-1.3) mg/dL AST (14-36) IU/L ALT (<35) IU/L Alkaline Phosphatase (38-126) U/L Troponin I 0.069 H (0.01-0.034) ng/mL Total Protein (6.3-8.2) g/dL Albumin (3.5-5.0) g/dL Globulin (1.7-4.1) g/dL Albumin/Globulin Ratio (1.0-2.8) Lipase (23-300) U/L Procalcitonin (<0.5) ng/mL Urine Color Urine Appearance Urine pH (4.5-8.0) Ur Specific [place] (1.000-1.035) Urine Protein (Negative) Urine Glucose (UA) (Negative) g/dL Urine Ketones (NEGATIVE) Urine Occult Blood (Negative) Urine Nitrate (Negative) Urine Bilirubin (NEGATIVE) Urine Urobilinogen (0.2) E.U./dL Ur Leukocyte Esterase (NEGATIVE) Urine RBC (0-5/HPF) Urine WBC (0-5/HPF) Ur Squamous Epith Cells (0-5/HPF) Urine Bacteria (None) Ur Culture Indicated? Ketones (<0.27) mmol/L Point of Care Testing Glucose POC 400 Point of care testing: Point of Care Testing Glucose POC 400 Imaging Data Chest x-ray: Attestation: I personally reviewed and interpreted this imaging study as follows: My Impression: Degraded secondary to rotation. No focal consolidation ECG Data Attestation: I personally reviewed and interpreted this ECG as follows: Prior ECG tracings: not available for review Interpretation: Bradycardia Ventricular rate of 48 QRS [address] T wave changes MDM Narrative Medical decision making narrative: Patient is alert oriented x3. Has a GCS of 15. My opinion is capacity to make decisions. She is a DNR with limited medical interventions. She has no complaints. No chest pain. No change in her baseline respiratory status. She states that the psoriasis she has under skin is also not new. Patient was hyperglycemic upon arrival. There is no signs of DKA. She was given fluids. Her blood sugar has been decreasing since her time here. I suspect that the insulin that she was given last evening is working. I feel we should hold on giving her any more to avoid making her hypoglycemic. Does have a leukocytosis. Unsure the etiology of this. She is afebrile. Her exam is not consistent with pneumonia. She does have psoriasis on her skin however there is no signs of a cellulitis. Her urine has quite a few epi cells. I suspect that this is a contamination. She has no urinary symptoms. I feel we could hold on antibiotics until the urine culture is resulted. I did discuss this with the patient. She was instructed we will call for any positive results to start on antibiotics. She has no abdominal pain. Feel we should hold on any antibiotics for now due to lack of a definitive source of infection. Patient does have a slightly increased creatinine. This very well could be a pre renal issue. She does describe decreased oral intake recently. Her EKG shows no acute ST changes. Her troponin is slightly elevated however repeat 2 hours later shows that it is unchanged. She denies any chest pain or any change in her respiratory status. I feel we could hold on further workup for ACS. I feel patient is safe to be discharged home. She was encouraged to continue with her oral fluid intake. She was given return precautions and follow-up instructions. She expressed understanding and agreement with plan. Discharge Plan Departure Patient Disposition: Home Clinical Impression: Hyperglycemia Instructions: DI for Diabetes Type 2 Activity Restrictions/Additional Instructions: Recommend that you take all of your medications as directed. Recommend that her blood sugar gets checked as directed by your primary provider. Contact her primary provider for follow-up. Return to the emergency department for any new or worsening symptoms
[2019-11-15 02:03] LABS: Add Manual Diff / Slide Review NO; Basophils Absolute Auto 100 /uL (0-100); Basophils Percent Auto 0.5 % (0-2); Eosinophils Absolute Auto 0 /uL (0-450); Eosinophils Percent Auto 0.1 % (2-4); Hematocrit 39.5 % (36-46); Hemoglobin 12.8 g/dL (12.0-16.0); Lymphocytes Absolute Auto 1000 /uL (1100-4500); Lymphocytes Percent Auto 7.3 % (25-40); Mean Corpuscular HGB Conc 32.4 % (30-36); Mean Corpuscular Hemoglobin 30.8 PG (26-34); Mean Corpuscular Volume 95.1 fL (80-100); Monocytes Absolute Auto 900 /uL (0-900); Monocytes Percent Auto 6.2 % (3-14); Neutrophils Absolute Auto 12100 /uL (1500-7000); Neutrophils Percent Auto 85.9 % (50-75); Platelet Count 206 X10^3/uL (150-400); Red Blood Cell Count 4.15 X10^6/uL (4.0-5.2); Red Cell Distribution Width 14.4 % (11.6-14.8)
[2019-11-15 02:12] LABS: Alanine Aminotransferase 19 IU/L (<35); Albumin 3.9 g/dL (3.5-5.0); Albumin Globulin Ratio 1.1 (1.0-2.8); Alkaline Phosphatase 29 U/L (38-126); Aspartate Aminotransferase 26 IU/L (14-36); BUN Creatinine Ratio 33.1 (6-22); Bilirubin Total 0.4 mg/dL (0.2-1.3); Blood Urea Nitrogen 53 mg/dL (7-17); Calcium 8.9 mg/dL (8.4-10.2); Carbon Dioxide 32 mmol/L (22-32); Chloride 95 mmol/L (98-107); Estimated Glomerular Filt Rate 30.7 mL/min (>60); Globulin 3.7 g/dL (1.7-4.1); HEMOLYSIS < 15 (0-50); Lipase 68 U/L (23-300); Magnesium 2.4 mg/dL (1.6-2.3); Phosphorous 5.7 mg/dL (2.8-4.1); Potassium 5.1 mmol/L (3.4-5.1); Sodium 137 mmol/L (137-145); Total Protein 7.6 g/dL (6.3-8.2)
[2019-11-15 02:14] LABS: Ketones (Beta-Hydroxybutyrate) 0.15 mmol/L (<0.27)
[2019-11-15 02:22] LABS: Glucose 494 mg/dL (80-110)
[2019-11-15 02:24] LABS: Procalcitonin 0.16 ng/mL (<0.5)
[2019-11-15 02:25] LABS: Troponin I 0.064 ng/mL (0.01-0.034)
--- NOTE | 2019-11-15 02:35 | DI.RAD.S_ITS ---
PROCEDURE: XR CHEST 1V INDICATIONS: eval for pneumonia TECHNIQUE: One view of the chest was acquired. COMPARISON: [facility], CHEST 1 VIEW, 10/04/2015, 2:13. [facility], CHEST 1 VIEW, 07/26/2011, 15:00. FINDINGS: Surgical changes and devices: None. Lungs and pleura: Lungs are difficult to accurately assess due to prominent patient rotation and tilt leftward. No pleural effusions or pneumothorax. Mediastinum: Mediastinal contours appear normal. Heart size is normal. Bones and chest wall: No suspicious bony lesions. Overlying soft tissues appear unremarkable. IMPRESSION: Pulmonary edema pattern/interstitial prominence accentuated by reduced inspiratory volume and prominent patient rotation and tilt rightward. Dictated by: Mynor Bonner M.D. on 11/15/2019 at 10:12 Approved by: Mynor Bonner M.D. on 11/15/2019 at 10:12
[2019-11-15 04:02] LABS: Bilirubin Urine UA NEGATIVE (NEGATIVE); Color Urine UA YELLOW; Glucose Urine UA 2+ g/dL (Negative); Ketones Urine UA NEGATIVE (NEGATIVE); Leukocyte Esterase Urine UA NEGATIVE (NEGATIVE); Nitrite Urine UA NEGATIVE (Negative); Occult Blood Urine UA 3+ (Negative); Protein Urine UA TRACE (Negative); Urobilinogen Urine UA 0.2 E.U./dL (0.2)
[2019-11-15 04:03] LABS: Appearance Urine UA SL CLOUDY
[2019-11-15 04:04] LABS: RBC Urine 10-30/HPF (0-5/HPF); WBC Urine 5-10/HPF (0-5/HPF)
[2019-11-15 04:05] LABS: Bacteria Urine Few (2-10); Squamous Epithelial Cell Urine 5-10 /HPF (0-5/HPF)
--- NOTE | 2019-11-15 04:09 | PC.NURSE ---
When up to the commode, pt noted with massive dry, scaly skin with scattered open areas to buttocks, groin folds, back, thighs, and arms. Pt states it is psoriasis. Dr Velazquez called to bedside to examine.
[2019-11-15 04:19] LABS: Glucose 321 mg/dL (80-110)
[2019-11-15 04:31] LABS: Troponin I 0.069 ng/mL (0.01-0.034)
[2019-11-15 05:04] VITALS: BP 132/64; PULSE 64; RESP 18; O2SAT 94
== END 2019-11-15 05:07 | disposition home or self-care (01) ==
PROVIDERS: Emergency Provider Emergency Medicine
DX: E11.65 Type 2 diabetes mellitus with hyperglycemia (principal); Z79.4 Long term (current) use of insulin
CPT/HCPCS: 36415; 71045; 80053; 81001; 82009; 82947; 82962; 83690; 83735; 84100; 84145; 84484; 85025; 87077; 87086; 87147; 87186; 93005; 96360; 96361; 99284; 99285

== ENCOUNTER → 2019-11-18 08:04 | Outpatient (ROUT) | payer MEDICARE, SELFPAY ==
[2019-11-18 08:30] LABS: Add Manual Diff / Slide Review NO; Basophils Absolute Auto 100 /uL (0-100); Basophils Percent Auto 0.9 % (0-2); Eosinophils Absolute Auto 200 /uL (0-450); Eosinophils Percent Auto 1.5 % (2-4); Hematocrit 36.9 % (36-46); Hemoglobin 11.8 g/dL (12.0-16.0); Lymphocytes Absolute Auto 1800 /uL (1100-4500); Lymphocytes Percent Auto 15.5 % (25-40); Mean Corpuscular HGB Conc 32.1 % (30-36); Mean Corpuscular Hemoglobin 30.1 PG (26-34); Mean Corpuscular Volume 93.8 fL (80-100); Monocytes Absolute Auto 1000 /uL (0-900); Monocytes Percent Auto 8.7 % (3-14); Neutrophils Absolute Auto 8300 /uL (1500-7000); Neutrophils Percent Auto 73.4 % (50-75); Platelet Count 198 X10^3/uL (150-400); Red Blood Cell Count 3.93 X10^6/uL (4.0-5.2); Red Cell Distribution Width 14.1 % (11.6-14.8); White Blood Cell Count 11.3 X10^3/uL (4.5-11.0)
[2019-11-18 08:34] LABS: Alanine Aminotransferase 23 IU/L (<35); Albumin 3.6 g/dL (3.5-5.0); Alkaline Phosphatase 29 U/L (38-126); Aspartate Aminotransferase 29 IU/L (14-36); BUN Creatinine Ratio 37.3 (6-22); Bilirubin Total 0.4 mg/dL (0.2-1.3); Blood Urea Nitrogen 41 mg/dL (7-17); Calcium 8.8 mg/dL (8.4-10.2); Carbon Dioxide 34 mmol/L (22-32); Chloride 101 mmol/L (98-107); Estimated Glomerular Filt Rate 47.3 mL/min (>60); Globulin 3.6 g/dL (1.7-4.1); Glucose 138 mg/dL (80-110); HEMOLYSIS < 15 (0-50); Potassium 4.1 mmol/L (3.4-5.1); Sodium 142 mmol/L (137-145); Total Protein 7.2 g/dL (6.3-8.2)
== END ==
PROVIDERS: Visit Provider Nurse Practitioner Family
DX: J44.9 Chronic obstructive pulmonary disease, unspecified (principal); I50.9 Heart failure, unspecified; E11.9 Type 2 diabetes mellitus without complications
CPT/HCPCS: 36415; 80053; 85025

== ENCOUNTER → 2019-12-16 13:34 | Outpatient (ROUT) | payer MEDICARE, SELFPAY ==
[2019-12-16 13:58] LABS: Add Manual Diff / Slide Review NO; Basophils Absolute Auto 100 /uL (0-100); Basophils Percent Auto 0.6 % (0-2); Eosinophils Absolute Auto 0 /uL (0-450); Eosinophils Percent Auto 0.4 % (2-4); Hematocrit 40.2 % (36-46); Hemoglobin 12.9 g/dL (12.0-16.0); Lymphocytes Absolute Auto 1000 /uL (1100-4500); Lymphocytes Percent Auto 12.3 % (25-40); Mean Corpuscular HGB Conc 32.1 % (30-36); Mean Corpuscular Hemoglobin 29.9 PG (26-34); Monocytes Absolute Auto 700 /uL (0-900); Monocytes Percent Auto 8.5 % (3-14); Neutrophils Absolute Auto 6300 /uL (1500-7000); Neutrophils Percent Auto 78.2 % (50-75); Platelet Count 186 X10^3/uL (150-400); Red Blood Cell Count 4.32 X10^6/uL (4.0-5.2); Red Cell Distribution Width 14.8 % (11.6-14.8)
[2019-12-16 14:14] LABS: BUN Creatinine Ratio 22.2 (6-22); Blood Urea Nitrogen 30 mg/dL (7-17); Calcium 8.9 mg/dL (8.4-10.2); Carbon Dioxide 36 mmol/L (22-32); Chloride 99 mmol/L (98-107); Estimated Glomerular Filt Rate 37.4 mL/min (>60); Glucose 210 mg/dL (80-110); HEMOLYSIS < 15 (0-50); Potassium 4.7 mmol/L (3.4-5.1); Sodium 142 mmol/L (137-145)
== END ==
PROVIDERS: Visit Provider Nurse Practitioner Family
DX: N18.9 Chronic kidney disease, unspecified (principal)
CPT/HCPCS: 36415; 80048; 85025

== ENCOUNTER 2019-12-18 13:01 | Emergency (ER) | payer MEDICARE, SELFPAY ==
[2019-12-18 12:59] VITALS: BP 128/60; PULSE 54; RESP 20; TEMP 35.7; O2SAT 93; BMI 40.8
--- NOTE | 2019-12-18 13:07 | DI.RAD.S_ITS ---
PROCEDURE: XR CHEST 1V INDICATIONS: Fall, hx COPD TECHNIQUE: One view of the chest was acquired. COMPARISON: [facility], CR, XR CHEST 1V, 11/15/2019, 2:38. FINDINGS: Surgical changes and devices: None. Lungs and pleura: Low lung volumes with scattered subsegmental atelectasis/scarring. . No pleural effusions or pneumothorax. Evaluation of lung bases limited by overlying pannus. Mediastinum: Mediastinal contours appear normal. Heart size is normal. Bones and chest wall: No suspicious bony lesions. Overlying soft tissues appear unremarkable. IMPRESSION: Low lung volumes with scattered subsegmental atelectasis/scarring. Dictated by: Chas Domingo M.D. on 12/18/2019 at 13:45 Approved by: Chas Domingo M.D. on 12/18/2019 at 13:52
--- NOTE | 2019-12-18 13:07 | DI.CT.S_ITS ---
PROCEDURE: CT FACIAL BONES WO CON INDICATIONS: fall, R zygomatic bruising. TECHNIQUE: Noncontrast 2.5 mm thick axial images acquired from the mandible through the frontal sinuses, with coronal and sagittal reformatting. For radiation dose reduction, the following was used: automated exposure control, adjustment of mA and/or kV according to patient size. COMPARISON: None. FINDINGS: Image quality: Excellent. Bones and teeth: Orbital leach are intact. Sinus leach show no fracture or deformity. Nasal bones and septum are intact. Visualized portions of the mandible demonstrate no fractures or subluxation. Zygomatic arches are intact. Pterygoid plates are intact. Visualized portions of the skull base and auditory canals are intact. Sinuses: Paranasal sinuses are aerated, without fluid levels, mucosal thickening, or mucoceles. Mastoid air cells are aerated. Soft tissues: No edema, masses, or fluid collections. No enlarged lymph nodes. No soft tissue lacerations or debris. Vascular: Visualized vascular structures appear normal in the absence of contrast. Bony vascular foramina and canals are intact. IMPRESSION: No fracture Dictated by: Chas Domingo M.D. on 12/18/2019 at 13:42 Approved by: Chas Domingo M.D. on 12/18/2019 at 13:45
--- NOTE | 2019-12-18 13:07 | DI.CT.S_ITS ---
PROCEDURE: CT HEAD/BRAIN W CON INDICATIONS: Fall, hit r side of head, unsure mechanism TECHNIQUE: 4.5 mm thick angled axial sections acquired from the foramen magnum to the vertex after the administration of intravenous contrast, with coronal and sagittal reformats. For radiation dose reduction, the following was used: automated exposure control, adjustment of mA and/or kV according to patient size. COMPARISON: None. FINDINGS: Image quality: Excellent. CSF Spaces: Basal cisterns are patent. No extra-axial fluid collections. Ventricles are normal in size and shape. Brain: No midline shift. Scattered small white matter changes, probably represent chronic microvascular ischemic disease, versus statistically less likely demyelination or other infectious, inflammatory, neurodegenerative etiology, technically nonspecific. No intracranial bleeds or masses. No abnormal intracranial enhancement. Johnson-white interface appears normal. Skull and face: Calvarium and visualized facial bones appear intact, without suspicious lesions. Sinuses: Visualized sinuses and mastoids are clear. IMPRESSION: No acute intracranial process. Dictated by: Chas Domingo M.D. on 12/18/2019 at 13:39 Approved by: Chas Domingo M.D. on 12/18/2019 at 13:42
--- NOTE | 2019-12-18 13:11 | ED.WOUNDLAC ---
HPI - Wound/Laceration <KAROLINE Singleton - Last Filed: 12/18/19 16:37> General Chief Complaint: Wound/Laceration Stated Complaint: Fall with lac Time Seen by Provider: 12/18/19 13:05 Source: patient and EMS Mode of arrival: EMS History of Present Illness HPI narrative: 84yo female with a history of psoriasis and COPD (uses 4 L of oxygen at all times), currently lives at an [facility] living long[facility]term, presents to the emergency department after a fall today. She states she is unsure exactly what happened but states ? I was sitting in my chair thinking that it wasn't even noon yet and I had to put up with this stuff for most of the day still. I was watching TV and I leaned forward to grab my remote control and I felt myself wobble, the next thing I know I was on the floor. Patient denies any syncope, fevers, vision changes, head pain, neck pain, nausea, vomiting, diarrhea, chest pain, shortness of breath, cough, or any other concerns. She states she takes aspirin, does not take any blood thinners. She does report a wound to the left side of her cheek with small amount of bleeding and bruising. She denies any other pain such as elbow pain, shoulder pain, hip pain, knee pain, ankle pain, or any other concerns. Related Data Allergies Allergy/AdvReac Type Severity Reaction Status Date / Time gabapentin [GABAPENTIN] Allergy Unknown DIZZINESS Unverified 12/30/17 11:59 NSAIDS (Non-Steroidal Allergy Unknown ADVISED TO Unverified 12/30/17 11:59 Anti-Inflamma AVOID [NSAIDS (NON-STEROIDAL ANTI-INFLAMMA] Review of Systems <KAROLINE Singleton - Last Filed: 12/18/19 16:37> Review of Systems Narrative: REVIEW OF SYSTEMS: GENERAL: Denies fever or chills. HENT: Reports fall, complains of head trauma, see HPI. EYES: No loss of vision, double vision, eye pain, or irritation. CARDIOVASCULAR: No chest pain or syncope. RESPIRATORY: No shortness of breath or cough. Uses oxygen daily, see HPI. GASTROINTESTINAL: No nausea, vomiting, diarrhea, or constipation. GENITOURINARY: No flank pain or dysuria. MUSCULOSKELETAL: No pain, weakness, or deformities. INTEGUMENTARY: Complains of laceration to right cheek, see HPI. NEURO: No numbness, tingling, memory loss, or confusion. Patient History <KAROLINE Singleton - Last Filed: 12/18/19 16:37> Medical History COPD (chronic obstructive pulmonary disease) (Acute) Social History Smoking Status: Former smoker Smoking Status: Former smoker Substance Use Type: does not use Exam <KAROLINE Singleton - Last Filed: 12/18/19 16:37> Initial Vital Signs Initial Vital Signs: Vital Signs Temperature 96.2 F L 12/18/19 12:59 Pulse Rate 54 L 12/18/19 12:59 Respiratory Rate 12/18/19 12:59 Blood Pressure 128/60 12/18/19 12:59 Pulse Oximetry 93 12/18/19 12:59 PHYSICAL EXAMINATION: GENERAL: Well groomed, alert, and cooperative. Answers questions promptly and appropriately. Vital signs noted. HENT: Normocephalic, bruising and a 4 cm laceration noted to right zygomatic area, bleeding controlled to help pressure. EYES: PERRLA, EOMIS, conjunctiva pink, sclera white, no periorbital swelling. CHEST: Normal to inspection and without deformities. CARDIOVASCULAR: S1 and S2 sounds normal. Regular rate and rhythm, no murmurs, clicks, or bruits. No pedal edema. RESPIRATORY: Normal respiratory rate, trachea midline, airway patent. No stridor, nasal flaring or accessory muscle use. Lungs with occasional expiratory wheezes, most likely due to chronic COPD. No crackles or rhonchi. No cough. GASTROINTESTINAL: Bowel sounds normoactive. Abdomen is soft and non-tender. No organomegaly. MUSCULOSKELETAL: Normal gait and coordination. Equal tone and mass bilaterally. EXTREMITIES: CMS intact. Moves all extremities. No tenderness to palpation of major joints such as shoulders, elbows, hips, knees, or feet. SKIN: Warm, dry, soft, appropriate color for ethnicity. No lesions, rashes, or wounds. NEURO: Alert and Oriented X 3. Good coordination. CN III-XII grossly intact. No ataxia, or sensory deficits, or cognitive issues. PSYCH: Appropriate affect and mood. <Cortez Epstein MD - Last Filed: 12/18/19 19:20> Initial Vital Signs Initial Vital Signs: Vital Signs Temperature 96.2 F L 12/18/19 12:59 Pulse Rate 54 L 12/18/19 12:59 Respiratory Rate 20 12/18/19 12:59 Blood Pressure 128/60 12/18/19 12:59 Pulse Oximetry 93 12/18/19 12:59 Procedures <KAROLINE Singleton - Last Filed: 12/18/19 16:37> Laceration Repair Laceration 1: Site: face Side (If applicable): right Size (cm): 5 Description: linear Depth: simple, single layer Pre-repair: irrigated extensively Skin layer closed with: dermabond Scores <KAROLINE Singleton - Last Filed: 12/18/19 16:37> Nexus Score for C-Spine Focal Neurologic deficit present: No Midline spinal tenderness present: No Altered level of conciousness present: No Intoxication present: No Distracting Injury Present: No Nexus Criteria for C-spine: 0 Course <KAROLINE Singleton - Last Filed: 12/18/19 16:37> Course Course Narrative: Patient remains awake and alert throughout the emergency department stay. Orders Ordered: ED Orders 12/18/19 13:07 CT facial bones wo con Stat CT head/brain w con Stat XR chest 1V Stat EKG-12 Lead Stat 12/18/19 13:48 Complete Blood Count AUTO DIFF Stat Comprehensive Metabolic Panel Stat Troponin & CK Cardiac Panel Stat Consultations Consultation #1: Patient staffed with Dr. Epstein. Spoke with Dr. Domingo, radiologist who gave verbal readings, no fracture noted on CT face, clear CT head, and scarring and atelectasis noted on Chest X-ray without acute findings. Results were read earlier but not populated in the computer at this time (3.5 hours later). Vital Signs Vital signs: Vital Signs - 8 hr 12/18/19 12:59 12/18/19 13:58 12/18/19 16:33 Temperature 96.2 F L Pulse Rate 54 L 65 59 L Respiratory Rate 20 Blood Pressure 128/60 Blood Pressure [Left Arm] 137/65 150/70 H Pulse Oximetry 93 92 91 <Cortez Epstein MD - Last Filed: 12/18/19 19:20> Orders Ordered: ED Orders 12/18/19 13:07 CT facial bones wo con Stat CT head/brain w con Stat XR chest 1V Stat EKG-12 Lead Stat 12/18/19 13:48 Complete Blood Count AUTO DIFF Stat Comprehensive Metabolic Panel Stat Troponin & CK Cardiac Panel Stat Vital Signs Vital signs: Vital Signs - 8 hr 12/18/19 12:59 12/18/19 13:58 12/18/19 16:33 Temperature 96.2 F L Pulse Rate 54 L 65 59 L Respiratory Rate 20 Blood Pressure 128/60 Blood Pressure [Left Arm] 137/65 150/70 H Pulse Oximetry 93 92 91 MDM - Wound/Laceration <KAROLINE Singleton - Last Filed: 12/18/19 16:37> Medical Records Attestation: I reviewed the patient's medical records. Lab Data Attestation: I reviewed the patient's lab results. Result diagrams: 12/18/19 13:48 12/18/19 13:48 Labs: Lab Results 12/18/19 12/18/19 Range/Units 13:48 13:48 WBC 9.0 (4.5-11.0) X10^3/uL RBC 4.42 (4.0-5.2) X10^6/uL Hgb 13.1 (12.0-16.0) g/dL Hct 40.7 (36-46) % MCV 92.2 (80-100) fL MCH 29.7 (26-34) PG MCHC 32.3 (30-36) % RDW 15.1 H (11.6-14.8) % Plt Count 187 (150-400) X10^3/uL Neut % (Auto) 77.5 H (50-75) % Lymph % (Auto) 11.9 L (25-40) % [place] % (Auto) 9.8 (3-14) % Eos % (Auto) 0.4 L (2-4) % Baso % (Auto) 0.4 (0-2) % Neut # (Auto) 7000 (2002-9129) /uL Lymph # (Auto) 1100 (4025-4915) /uL [place] # (Auto) 900 (0-900) /uL Eos # (Auto) 0 (0-450) /uL Baso # (Auto) 0 (0-100) /uL Sodium 142 (137-145) mmol/L Potassium 4.6 (3.4-5.1) mmol/L Chloride 100 (98-107) mmol/L Carbon Dioxide 35 H (22-32) mmol/L BUN 26 H (7-17) mg/dL Creatinine 1.35 H (0.52-1.04) mg/dL Estimated GFR 37.4 L (>60) mL/min BUN/Creatinine Ratio 19.3 (6-22) Glucose 229 H (80-110) mg/dL Calcium 8.9 (8.4-10.2) mg/dL Total Bilirubin 0.5 (0.2-1.3) mg/dL AST 35 (14-36) IU/L ALT 17 (<35) IU/L Alkaline Phosphatase 25 L (38-126) U/L Total Creatine Kinase 95 (30-135) U/L CK-MB (CK-2) TNP CK-MB (CK-2) Rel Index TNP Troponin I 0.014 (0.01-0.034) ng/mL Total Protein 7.6 (6.3-8.2) g/dL Albumin 3.9 (3.5-5.0) g/dL Globulin 3.7 (1.7-4.1) g/dL Albumin/Globulin Ratio 1.1 (1.0-2.8) ECG Data Interpretation: Supraventricular bradycardia, rate 50, inconsistent ND interval, QTC 384. No ST elevation or ST depression. No T-wave abnormality. EKG was also viewed by Dr. Epstein per protocol. MDM Narrative Medical decision making narrative: 84-year-old female presenting to the emergency department after what appears to be a mechanical fall. Patient describes falling after running for written reaching for remote. She reports hitting the right side of her head, denies loss of consciousness or any other symptoms. Laboratory work is within normal limits for the patient, EKG read is consistent with prior read, troponin negative, chest x-ray is negative. Patient is chronically on 4 L nasal cannula due to COPD. She denies any worsening symptoms such as fever, cough, shortness of breath or anything that would be concerning for an infection. Patient is neurologically intact without focal neurological deficits, CT of Face and Head negative for any fractures or cranial etiology. Patient's laceration was repaired with Dermabond successfully. No signs of continued bleeding or infection to laceration. Patient was discharged, follow-up instructions discussed. <Cortez Epstein MD - Last Filed: 12/18/19 19:20> Lab Data Labs: Lab Results 12/18/19 12/18/19 Range/Units 13:48 13:48 WBC 9.0 (4.5-11.0) X10^3/uL RBC 4.42 (4.0-5.2) X10^6/uL Hgb 13.1 (12.0-16.0) g/dL Hct 40.7 (36-46) % MCV 92.2 (80-100) fL MCH 29.7 (26-34) PG MCHC 32.3 (30-36) % RDW 15.1 H (11.6-14.8) % Plt Count 187 (150-400) X10^3/uL Neut % (Auto) 77.5 H (50-75) % Lymph % (Auto) 11.9 L (25-40) % [place] % (Auto) 9.8 (3-14) % Eos % (Auto) 0.4 L (2-4) % Baso % (Auto) 0.4 (0-2) % Neut # (Auto) 7000 (3117-6750) /uL Lymph # (Auto) 1100 (0001-0123) /uL [place] # (Auto) 900 (0-900) /uL Eos # (Auto) 0 (0-450) /uL Baso # (Auto) 0 (0-100) /uL Sodium 142 (137-145) mmol/L Potassium 4.6 (3.4-5.1) mmol/L Chloride 100 (98-107) mmol/L Carbon Dioxide 35 H (22-32) mmol/L BUN 26 H (7-17) mg/dL Creatinine 1.35 H (0.52-1.04) mg/dL Estimated GFR 37.4 L (>60) mL/min BUN/Creatinine Ratio 19.3 (6-22) Glucose 229 H (80-110) mg/dL Calcium 8.9 (8.4-10.2) mg/dL Total Bilirubin 0.5 (0.2-1.3) mg/dL AST 35 (14-36) IU/L ALT 17 (<35) IU/L Alkaline Phosphatase 25 L (38-126) U/L Total Creatine Kinase 95 (30-135) U/L CK-MB (CK-2) TNP CK-MB (CK-2) Rel Index TNP Troponin I 0.014 (0.01-0.034) ng/mL Total Protein 7.6 (6.3-8.2) g/dL Albumin 3.9 (3.5-5.0) g/dL Globulin 3.7 (1.7-4.1) g/dL Albumin/Globulin Ratio 1.1 (1.0-2.8) Discharge Plan Departure Patient Disposition: Home Clinical Impression: Fall Qualifiers: Encounter type: initial encounter Qualified Code(s): W19.XXXA - Unspecified fall, initial encounter Facial laceration Qualifiers: Encounter type: initial encounter Qualified Code(s): S01.81XA - Laceration without foreign body of other part of head, initial encounter Discharge Date/Time: 12/18/19 17:30 Instructions: DI for Laceration Repair Activity Restrictions/Additional Instructions: Thank you for entrusting me with your care today. As discussed, your laceration was repaired with glue. Please keep the area dry for the next 3-4 days. After 4 days, you may apply Neosporin to the area to help dissolve the glue. Do not pull at the glue. Your head and face CT was negative for any fractures. Laboratory work, chest x-ray, and EKG non-remarkable. Please follow up with your primary care provider in 1-2 weeks for further evaluation. Return emergency department for any new or worsening symptoms such as change in behavior, syncope, chest pain, shortness of breath, fevers, or any other concerns.
[2019-12-18 13:57] LABS: Add Manual Diff / Slide Review NO; Basophils Absolute Auto 0 /uL (0-100); Basophils Percent Auto 0.4 % (0-2); Eosinophils Absolute Auto 0 /uL (0-450); Eosinophils Percent Auto 0.4 % (2-4); Hematocrit 40.7 % (36-46); Hemoglobin 13.1 g/dL (12.0-16.0); Lymphocytes Absolute Auto 1100 /uL (1100-4500); Lymphocytes Percent Auto 11.9 % (25-40); Mean Corpuscular HGB Conc 32.3 % (30-36); Mean Corpuscular Hemoglobin 29.7 PG (26-34); Mean Corpuscular Volume 92.2 fL (80-100); Monocytes Absolute Auto 900 /uL (0-900); Monocytes Percent Auto 9.8 % (3-14); Neutrophils Absolute Auto 7000 /uL (1500-7000); Neutrophils Percent Auto 77.5 % (50-75); Platelet Count 187 X10^3/uL (150-400); Red Blood Cell Count 4.42 X10^6/uL (4.0-5.2); Red Cell Distribution Width 15.1 % (11.6-14.8)
[2019-12-18 13:58] VITALS: BP 137/65; PULSE 65; O2SAT 92
[2019-12-18 14:07] LABS: Alanine Aminotransferase 17 IU/L (<35); Albumin 3.9 g/dL (3.5-5.0); Albumin Globulin Ratio 1.1 (1.0-2.8); Alkaline Phosphatase 25 U/L (38-126); Aspartate Aminotransferase 35 IU/L (14-36); BUN Creatinine Ratio 19.3 (6-22); Bilirubin Total 0.5 mg/dL (0.2-1.3); Blood Urea Nitrogen 26 mg/dL (7-17); Calcium 8.9 mg/dL (8.4-10.2); Carbon Dioxide 35 mmol/L (22-32); Chloride 100 mmol/L (98-107); Creatine Kinase 95 U/L (30-135); Estimated Glomerular Filt Rate 37.4 mL/min (>60); Globulin 3.7 g/dL (1.7-4.1); Glucose 229 mg/dL (80-110); HEMOLYSIS < 15 (0-50); Potassium 4.6 mmol/L (3.4-5.1); Sodium 142 mmol/L (137-145); Total Protein 7.6 g/dL (6.3-8.2)
[2019-12-18 14:19] LABS: Troponin I 0.014 ng/mL (0.01-0.034)
[2019-12-18 16:33] VITALS: BP 150/70; PULSE 59; O2SAT 91
== END 2019-12-18 17:30 | disposition home or self-care (01) ==
PROVIDERS: Emergency Provider Nurse Practitioner
DX: S01.81XA Laceration without foreign body of other part of head, initial encounter (principal); S09.90XA Unspecified injury of head, initial encounter; W19.XXXA Unspecified fall, initial encounter; R07.9 Chest pain, unspecified; J44.9 Chronic obstructive pulmonary disease, unspecified
CPT/HCPCS: 36415; 70460; 70486; 71045; 80053; 82550; 84484; 85025; 93005; 99284

== ENCOUNTER → 2019-12-30 07:57 | Outpatient (ROUT) | payer MEDICARE, SELFPAY ==
[2019-12-30 08:37] LABS: BUN Creatinine Ratio 26.7 (6-22); Blood Urea Nitrogen 28 mg/dL (7-17); Calcium 8.7 mg/dL (8.4-10.2); Carbon Dioxide 38 mmol/L (22-32); Chloride 98 mmol/L (98-107); Estimated Glomerular Filt Rate 49.9 mL/min (>60); Glucose 116 mg/dL (80-110); HEMOLYSIS < 15 (0-50); Potassium 3.6 mmol/L (3.4-5.1); Sodium 142 mmol/L (137-145)
== END ==
PROVIDERS: Visit Provider Registered Nurse
DX: N18.9 Chronic kidney disease, unspecified (principal); J96.90 Respiratory failure, unspecified, unspecified whether with hypoxia or hypercapnia
CPT/HCPCS: 36415; 80048

== ENCOUNTER → 2020-01-11 07:54 | Outpatient (ROUT) | payer MEDICARE, SELFPAY ==
[2020-01-11 08:27] LABS: Add Manual Diff / Slide Review NO; Basophils Absolute Auto 200 /uL (0-100); Basophils Percent Auto 1.3 % (0-2); Eosinophils Absolute Auto 400 /uL (0-450); Eosinophils Percent Auto 3.7 % (2-4); Hematocrit 38.8 % (36-46); Hemoglobin 12.5 g/dL (12.0-16.0); Lymphocytes Absolute Auto 1400 /uL (1100-4500); Lymphocytes Percent Auto 11.7 % (25-40); Mean Corpuscular HGB Conc 32.4 % (30-36); Mean Corpuscular Hemoglobin 29.4 PG (26-34); Monocytes Absolute Auto 800 /uL (0-900); Monocytes Percent Auto 7.2 % (3-14); Neutrophils Absolute Auto 8800 /uL (1500-7000); Neutrophils Percent Auto 76.1 % (50-75); Platelet Count 178 X10^3/uL (150-400); Red Blood Cell Count 4.26 X10^6/uL (4.0-5.2); Red Cell Distribution Width 14.9 % (11.6-14.8); White Blood Cell Count 11.6 X10^3/uL (4.5-11.0)
[2020-01-11 08:42] LABS: BUN Creatinine Ratio 24.8 (6-22); Blood Urea Nitrogen 28 mg/dL (7-17); Calcium 8.7 mg/dL (8.4-10.2); Carbon Dioxide 37 mmol/L (22-32); Chloride 96 mmol/L (98-107); Estimated Glomerular Filt Rate 45.9 mL/min (>60); Glucose 129 mg/dL (80-110); HEMOLYSIS < 15 (0-50); Potassium 3.9 mmol/L (3.4-5.1); Sodium 138 mmol/L (137-145)
[2020-01-11 08:50] LABS: NT-proBNP (BNP-Adult 18+) 188 pg/mL (<450)
== END ==
PROVIDERS: Visit Provider Nurse Practitioner Family
DX: R09.02 Hypoxemia (principal)
CPT/HCPCS: 36415; 80048; 83880; 85025

== ENCOUNTER → 2020-05-09 07:38 | Outpatient (ROUT) | payer MEDICARE, SELFPAY ==
[2020-05-09 07:54] LABS: Add Manual Diff / Slide Review NO; Basophils Absolute Auto 100 /uL (0-100); Basophils Percent Auto 0.7 % (0-2); Eosinophils Absolute Auto 500 /uL (0-450); Hematocrit 35.9 % (36-46); Hemoglobin 11.4 g/dL (12.0-16.0); Lymphocytes Absolute Auto 1400 /uL (1100-4500); Lymphocytes Percent Auto 14.6 % (25-40); Mean Corpuscular HGB Conc 31.8 % (30-36); Mean Corpuscular Hemoglobin 30.6 PG (26-34); Mean Corpuscular Volume 96.1 fL (80-100); Monocytes Absolute Auto 800 /uL (0-900); Monocytes Percent Auto 8.2 % (3-14); Neutrophils Absolute Auto 7100 /uL (1500-7000); Neutrophils Percent Auto 71.5 % (50-75); Platelet Count 186 X10^3/uL (150-400); Red Blood Cell Count 3.73 X10^6/uL (4.0-5.2); Red Cell Distribution Width 14.6 % (11.6-14.8); White Blood Cell Count 9.9 X10^3/uL (4.5-11.0)
[2020-05-09 08:01] LABS: Hemoglobin A1C% w Est Avg Glu 7.3 % (4.0-6.0)
[2020-05-09 08:08] LABS: Alanine Aminotransferase 20 IU/L (<35); Albumin 3.2 g/dL (3.5-5.0); Albumin Globulin Ratio 1.1 (1.0-2.8); Alkaline Phosphatase 25 U/L (38-126); Aspartate Aminotransferase 25 IU/L (14-36); BUN Creatinine Ratio 21.9 (6-22); Bilirubin Total 0.5 mg/dL (0.2-1.3); Blood Urea Nitrogen 23 mg/dL (7-17); Calcium 8.7 mg/dL (8.4-10.2); Carbon Dioxide 39 mmol/L (22-32); Chloride 97 mmol/L (98-107); Estimated Glomerular Filt Rate 49.9 mL/min (>60); Globulin 2.8 g/dL (1.7-4.1); Glucose 216 mg/dL (80-110); HEMOLYSIS < 15 (0-50); Potassium 4.1 mmol/L (3.4-5.1); Sodium 138 mmol/L (137-145)
== END ==
PROVIDERS: Visit Provider Nurse Practitioner Family
DX: L40.9 Psoriasis, unspecified (principal); E11.9 Type 2 diabetes mellitus without complications
CPT/HCPCS: 36415; 80053; 83036; 85025

== ENCOUNTER → 2020-06-11 07:14 | Outpatient (ROUT) | payer MEDICARE, SELFPAY ==
[2020-06-11 07:57] LABS: BUN Creatinine Ratio 28.5 (6-22); Blood Urea Nitrogen 35 mg/dL (7-17); Calcium 8.4 mg/dL (8.4-10.2); Chloride 99 mmol/L (98-107); Estimated Glomerular Filt Rate 41.6 mL/min (>60); Glucose 132 mg/dL (80-110); HEMOLYSIS < 15 (0-50); Potassium 4.1 mmol/L (3.4-5.1); Sodium 142 mmol/L (137-145)
[2020-06-11 08:04] LABS: Carbon Dioxide 36 mmol/L (22-32)
== END ==
PROVIDERS: Nurse Practitioner Family; Visit Provider Registered Nurse
DX: N18.9 Chronic kidney disease, unspecified (principal)
CPT/HCPCS: 36415; 80048

== ENCOUNTER → 2020-06-25 07:33 | Outpatient (ROUT) | payer MEDICARE, SELFPAY ==
[2020-06-25 07:45] LABS: BUN Creatinine Ratio 23.6 (6-22); Blood Urea Nitrogen 26 mg/dL (7-17); Calcium 8.4 mg/dL (8.4-10.2); Chloride 100 mmol/L (98-107); Estimated Glomerular Filt Rate 47.3 mL/min (>60); Glucose 157 mg/dL (80-110); HEMOLYSIS < 15 (0-50); Potassium 4.2 mmol/L (3.4-5.1); Sodium 141 mmol/L (137-145)
[2020-06-25 07:52] LABS: Carbon Dioxide 38 mmol/L (22-32)
== END ==
PROVIDERS: Visit Provider Nurse Practitioner Family
DX: N18.9 Chronic kidney disease, unspecified (principal)
CPT/HCPCS: 36415; 80048

== ENCOUNTER → 2020-07-24 19:54 | Outpatient (ROUT) | payer MEDICARE, SELFPAY ==
[2020-07-24 20:21] LABS: Appearance Urine UA CLEAR; Bilirubin Urine UA NEGATIVE (NEGATIVE); Color Urine UA YELLOW; Glucose Urine UA NEGATIVE (Negative); Ketones Urine UA NEGATIVE (NEGATIVE); Leukocyte Esterase Urine UA 1+ (NEGATIVE); Nitrite Urine UA NEGATIVE (Negative); Occult Blood Urine UA 1+ (Negative); Protein Urine UA NEGATIVE (Negative); Specific Gravity Urine UA 1.015 (1.000-1.035); Urobilinogen Urine UA 0.2 E.U./dL (0.2)
[2020-07-24 20:26] LABS: Bacteria Urine Few (2-10); Culture Indicated Urine Specimen Cultured; RBC Urine 0-1/HPF (0-5/HPF); Squamous Epithelial Cell Urine 0-1 /HPF (0-5/HPF); Transitional Epi Cells Urine 0-1/HPF (0-5/HPF); WBC Urine 10-30/HPF (0-5/HPF)
== END ==
PROVIDERS: Visit Provider Nurse Practitioner Family
DX: R35.0 Frequency of micturition (principal)
CPT/HCPCS: 81001; 87086

== ENCOUNTER → 2020-07-25 07:34 | Outpatient (ROUT) | payer MEDICARE, SELFPAY ==
[2020-07-25 08:46] LABS: Add Manual Diff / Slide Review NO; Basophils Absolute Auto 100 /uL (0-100); Basophils Percent Auto 0.9 % (0-2); Eosinophils Absolute Auto 400 /uL (0-450); Eosinophils Percent Auto 3.5 % (2-4); Hematocrit 35.4 % (36-46); Hemoglobin 11.1 g/dL (12.0-16.0); Lymphocytes Absolute Auto 1600 /uL (1100-4500); Lymphocytes Percent Auto 15.4 % (25-40); Mean Corpuscular HGB Conc 31.4 % (30-36); Mean Corpuscular Hemoglobin 29.1 PG (26-34); Mean Corpuscular Volume 92.7 fL (80-100); Monocytes Absolute Auto 800 /uL (0-900); Monocytes Percent Auto 8.2 % (3-14); Neutrophils Absolute Auto 7400 /uL (1500-7000); Platelet Count 189 X10^3/uL (150-400); Red Blood Cell Count 3.82 X10^6/uL (4.0-5.2); White Blood Cell Count 10.3 X10^3/uL (4.5-11.0)
[2020-07-25 09:13] LABS: BUN Creatinine Ratio 27.6 (6-22); Blood Urea Nitrogen 37 mg/dL (7-17); Calcium 8.4 mg/dL (8.4-10.2); Carbon Dioxide 35 mmol/L (22-32); Chloride 101 mmol/L (98-107); Estimated Glomerular Filt Rate 37.7 mL/min (>60); Glucose 171 mg/dL (80-110); HEMOLYSIS < 15 (0-50); Potassium 3.7 mmol/L (3.4-5.1); Sodium 138 mmol/L (137-145)
== END ==
PROVIDERS: Visit Provider Nurse Practitioner Gerontology
DX: N18.9 Chronic kidney disease, unspecified (principal); R53.83 Other fatigue
CPT/HCPCS: 36415; 80048; 85025

== ENCOUNTER → 2020-08-27 07:19 | Outpatient (ROUT) | payer MEDICARE, SELFPAY ==
[2020-08-27 07:34] LABS: BUN Creatinine Ratio 28.3 (6-22); Blood Urea Nitrogen 32 mg/dL (7-17); Calcium 8.3 mg/dL (8.4-10.2); Chloride 97 mmol/L (98-107); Estimated Glomerular Filt Rate 45.9 mL/min (>60); Glucose 269 mg/dL (80-110); HEMOLYSIS < 15 (0-50); Potassium 4.7 mmol/L (3.4-5.1); Sodium 137 mmol/L (137-145)
[2020-08-27 07:42] LABS: Carbon Dioxide 38 mmol/L (22-32)
== END ==
PROVIDERS: Visit Provider Nurse Practitioner Family
DX: N18.9 Chronic kidney disease, unspecified (principal)
CPT/HCPCS: 36415; 80048

== ENCOUNTER 2020-08-27 20:24 | Inpatient (IN) | payer MEDICARE, SELFPAY ==
[2020-08-27] VITALS (16 sets, daily range): BP systolic 137–186; BP diastolic 58–75; PULSE 62–73; RESP 15–38; TEMP 36.8; O2SAT 63–95; BMI 40.7
--- NOTE | 2020-08-27 20:45 | ED_ITS ---
HPI - SOB/Dyspnea General Chief Complaint: Upper Respiratory Symptoms Stated Complaint: resp distress Time Seen by Provider: 08/27/20 20:30 Source: patient and EMS Mode of arrival: EMS Limitations: no limitations and altered mental status History of Present Illness HPI Narrative: 84-year-old female former smoker with chronic oxygen requirements of 2-4 L by nasal cannula for oxygen saturations in the upper 80s to lower 90s presents by EMS for evaluation of increasing respiratory distress, weakness and known COVID positive status. She is a DNR DNI and her PCP consulted with family and they wished for her to be transferred for further evaluation. She has had weakness and did fall, injuring her left low earlier today. She is pleasantly confused but answering questions appropriately a and is at her neurologic baseline per nursing. She has had no fever or chills, she has had an increasing wet sounding cough. MD Complaint: shortness of breath and cough Onset (ago): hour(s) Severity: moderate Consistency/Duration: constant Relieving factors: oxygen and rest Exacerbating factors: exertion Known history of: COPD Associated symptoms: cough, wheezing and sputum production Treatment prior to arrival: oxygen Related Data Home oxygen amount: 2 liters Allergies Allergy/AdvReac Type Severity Reaction Status Date / Time gabapentin [GABAPENTIN] Allergy Unknown DIZZINESS Unverified 08/28/20 01:03 NSAIDS (Non-Steroidal Allergy Unknown ADVISED TO Unverified 08/28/20 01:03 Anti-Inflamma AVOID [NSAIDS (NON-STEROIDAL ANTI-INFLAMMA] Review of Systems Constitutional Constitutional: Denies chills, Denies fatigue, Denies fever(s), Denies frequent falls, Reports lethargy and Reports weakness Eyes Eyes: Denies change in vision, Denies eye discharge, Denies irritation and Denies loss of vision ENT Ears, Nose, Mouth, and Throat: Denies change in voice, Denies dizziness, Denies neck pain, Denies sore throat and Denies throat swelling Cardiovascular Cardiovascular: Denies chest pain, Denies irregular heart rhythm, Denies lighth eadedness, Denies palpitations, Reports dyspnea, Reports dyspnea on exertion and Denies orthopnea Respiratory Respiratory: Reports cough, Reports dyspnea, Reports dyspnea on exertion and Reports wheezing Gastrointestinal Gastrointestinal: Denies abdominal pain, Denies change in bowel habits, Denies diarrhea, Denies nausea and Denies vomiting Musculoskeletal Musculoskeletal: Denies neck pain and Denies numbness Integumentary/Breasts Skin/Breast: Denies pruritus, Denies erythema, Denies rash and Denies wounds Neurologic Neurologic: Denies behavioral changes, Denies confusion, Denies dizziness, Denies frequent falls, Denies loss of vision, Denies numbness and Reports weakness Psychiatric Psychiatric: Denies anxiety, Denies behavioral changes, Denies confusion, Denies depression, Denies homicidal ideation and Denies suicidal ideation Endocrine Endocrine: Denies fatigue, Denies flushing and Denies palpitations Hematologic/Lymphatic Hematologic/Lymphatic: Denies easy bruising Allergic/Immunologic Allergic/Immunologic: Denies urticaria, Denies throat swelling and Reports wheezing Patient History Medical History Cerebral microvascular disease COPD (chronic obstructive pulmonary disease) Diabetes Insomnia Psoriasis Social History Smoking Status: Former smoker Smoking Status: Former smoker alcohol intake frequency: 0-2 drinks per day Substance Use Type: does not use Exam Narrative Exam Narrative: GENERAL: [84] year old patient appears stated age. Pleasantly confused, no obvious conversational dyspnea HEAD: Atraumatic. Normocephalic. EYES: Pupils equal round and reactive. Extraocular motions intact. No scleral icterus. No injection or drainage. ENT: Nose without bleeding, purulent drainage. Throat without erythema, tonsillar hypertrophy or exudate. Airway patent. NECK: Trachea midline. Non tender CARDIOVASCULAR: Regular rate and rhythm without murmurs, gallops, or rubs. RESPIRATORY: Wet sounding cough, crackles and rhonchi in bases bilaterally GASTROINTESTINAL: Abdomen soft, non-tender, nondistended. EXTREMITIES: Small area of ecchymosis on left anterior low which is tender to palpate. She denies any pain with palpation of calf BACK: Nontender without deformity or crepitance. No flank tenderness. NEURO: AOx3. SKIN: No rash or erythema of visible areas Initial Vital Signs Initial Vital Signs: Vital Signs Pulse Rate 73 12 20:39 Pulse Oximetry 85 L 08/27/20 20:39 Course Course Course Narrative: She likely has a multifactorial component to her illness. She has known COVID and Xray findings could represent COVID pneumonia. However, given WBC and Lactate she is given ABX. No signficant fluids given as she appears to be in volume overload. Lactate is quite elevated, but there is no suggestion of compromised perfusion, repeat is within normal limits. DDimer is elevated, but within reasonable level when age corrected, PE considered unlikely. ABG notes a largely compensated Primary Respiratory Acidosis. Orders Ordered: ED Orders 08/27/20 20:05 COVID19 Stat 08/27/20 20:45 EKG-12 Lead Stat 08/27/20 20:46 XR chest 1V Stat 08/27/20 20:50 Blood Culture Stat C-Reactive Protein Quant Stat Complete Blood Count AUTO DIFF Stat Comprehensive Metabolic Panel Stat D Dimer Stat Ferritin Stat Lactate (Lactic Acid) Stat Lactate Dehydrogenase Stat NT-proBNP (BNP-Adult 18+) Stat Procalcitonin Stat Troponin & CK Cardiac Panel Stat Acetaminophen (Acetaminophen 325 Mg Tablet) 650 mg PO Q4HR PRN PRN Reason: Fever/Mild Pain (1-3) Al Hydrox/Mg Hydrox/Simethicone (Mag Hydrox/Alum/Simeth 30 Ml Udc) 30 ml PO Q6HR PRN PRN Reason: Dyspepsia Bisacodyl (Bisacodyl 10 Mg Supp) 10 mg MO DAILY PRN PRN Reason: Constipation Calcium Carbonate (Calcium Carbonate 500 Mg Tab) 1,000 mg PO Q4HR PRN PRN Reason: Dyspepsia Dexamethasone (Dexamethasone 10 Mg/Ml Vial) 6 mg IV DAILY HEDY Dextrose (Dextrose 50 % In Water 25 Gm/50 Ml Syringe) 25 gm IV PRN PRN; Protocol PRN Reason: Hypoglycemia Docusate Sodium (Docusate 100 Mg Capsule) 100 mg PO BID HEDY Famotidine (Famotidine 20 Mg Tablet) 40 mg PO BEDTIME HEDY Heparin Sodium (Porcine) (Heparin 5,000 Unit/Ml Vial) 5,000 unit SUBCUT BID HEDY Last Admin: 08/28/20 02:37 Dose: 5,000 unit Documented by: SSARDEL Remdesivir 100 mg/ Sodium (Chloride) 250 mls @ 250 mls/hr IV DAILY HEDY Stop: 09/01/20 20:59 Insulin Aspart (Insulin Aspart 100 Unit/Ml Insuln Pen) 0 unit SUBCUT ACHS HEDY; Protocol Melatonin (Melatonin 3 Mg Tablet) 6 mg PO BEDTIME HEDY Naloxone HCl (Naloxone 0.4 Mg/Ml Vial) 0.2 mg IV Q2MIN PRN PRN Reason: Opiate Reversal Naloxone HCl (Naloxone 0.4 Mg/Ml Vial) 0.2 mg IV Q2MIN PRN PRN Reason: Opiate Reversal Ondansetron HCl (Ondansetron 4 Mg/2 Ml Inj) 4 mg IV Q8HR PRN PRN Reason: Nausea And Vomiting Discontinued Medications Dexamethasone (Dexamethasone 10 Mg/Ml Vial) 6 mg IV NOW ONE Stop: 08/27/20 22:57 Last Admin: 08/27/20 23:27 Dose: 6 mg Documented by: GABY Furosemide (Furosemide 40 Mg/4 Ml Vial) 40 mg IV NOW ONE Stop: 08/27/20 22:51 Last Admin: 08/27/20 23:26 Dose: 40 mg Documented by: GABY Haloperidol (Haloperidol 5 Mg/Ml Vial) 2 mg IV NOW ONE Stop: 08/28/20 02:11 Last Admin: 08/28/20 02:37 Dose: 2 mg Documented by: KALIA Ceftriaxone Sodium/Dextrose (Rocephin) 1 gm in 50 mls @ 100 mls/hr IV NOW ONE Stop: 08/27/20 23:19 Last Infusion: 08/28/20 00:39 Dose: 0 mls/hr Documented by: Admin: 08/27/20 23:44 Dose: 100 mls/hr Documented by: GABY Remdesivir 200 mg/ Sodium (Chloride) 250 mls @ 250 mls/hr IV NOW ONE Stop: 08/27/20 22:57 Last Infusion: 08/28/20 01:04 Dose: 0 mls/hr Documented by: Admin: 08/27/20 23:44 Dose: 250 mls/hr Documented by: GABY Sterile Water (Water For Injection,Sterile 50 Ml Vial) 40 ml INJ NOW ONE Stop: 08/27/20 23:24 Last Admin: 08/28/20 01:03 Dose: 40 ml Documented by: GABY Vital Signs Vital signs: Vital Signs - 8 hr 08/27/20 20:45 08/27/20 21:00 08/27/20 21:01 Temperature 98.3 F Pulse Rate 68 64 62 Respiratory Rate 38 H 23 38 H Blood Pressure 186/75 H 160/70 H 176/75 H Pulse Oximetry 90 L 95 91 08/27/20 21:15 08/27/20 21:30 08/27/20 21:45 Temperature Pulse Rate 63 62 63 Respiratory Rate 26 H 17 27 H Blood Pressure 144/63 H 141/65 H 154/63 H Pulse Oximetry 94 93 93 08/27/20 22:00 08/27/20 22:15 08/27/20 22:30 Temperature Pulse Rate 64 63 64 Respiratory Rate 21 15 18 Blood Pressure 144/66 H 149/67 H Pulse Oximetry 91 92 90 L 08/27/20 22:45 08/27/20 23:00 Temperature Pulse Rate 65 62 Respiratory Rate 21 27 H Blood Pressure 137/68 145/65 H Pulse Oximetry 89 L 92 MDM - SOB/Dyspnea Lab Data Result diagrams: 08/27/20 20:50 08/27/20 20:50 Labs: Lab Results 08/27/20 08/27/20 08/27/20 Range/Units 20:05 20:50 20:50 WBC 12.9 H (4.5-11.0) X10^3/uL RBC 4.18 (4.0-5.2) X10^6/uL Hgb 12.0 (12.0-16.0) g/dL Hct 39.4 (36-46) % MCV 94.2 (80-100) fL MCH 28.8 (26-34) PG MCHC 30.5 (30-36) % RDW 14.9 H (11.6-14.8) % Plt Count 173 (150-400) X10^3/uL Neut % (Auto) 72.8 (50-75) % Lymph % (Auto) 16.1 L (25-40) % [place] % (Auto) 8.6 (3-14) % Eos % (Auto) 2.2 (2-4) % Baso % (Auto) 0.3 (0-2) % Neut # (Auto) 9400 H (6274-5934) /uL Lymph # (Auto) 2100 (8715-7447) /uL [place] # (Auto) 1100 H (0-900) /uL Eos # (Auto) 300 (0-450) /uL Baso # (Auto) 0 (0-100) /uL D-Dimer 731 H (<230) ng/mL ABG pH (7.35-7.45) ABG pCO2 (35-45) mmHg ABG pO2 (80-100) mmHg ABG HCO3 (22-26) mmol/L ABG Total CO2 (21-31) mmol/L ABG O2 Saturation (95-100) % ABG Base Excess (-2-2) mmol/L FiO2 Sodium (137-145) mmol/L Potassium (3.4-5.1) mmol/L Chloride (98-107) mmol/L Carbon Dioxide (22-32) mmol/L BUN (7-17) mg/dL Creatinine (0.52-1.04) mg/dL Estimated GFR (>60) mL/min BUN/Creatinine Ratio (6-22) Glucose (80-110) mg/dL Lactate (0.7-2.1) mmol/L Calcium (8.4-10.2) mg/dL Magnesium (1.6-2.3) mg/dL Ferritin (11-264) ng/mL Total Bilirubin (0.2-1.3) mg/dL AST (14-36) IU/L ALT (<35) IU/L Alkaline Phosphatase (38-126) U/L Lactate Dehydrogenase (313-618) U/L Total Creatine Kinase (30-135) U/L CK-MB (CK-2) CK-MB (CK-2) Rel Index Troponin I (0.01-0.034) ng/mL C-Reactive Protein (<1.0) mg/dL NT-Pro-B Natriuret Pep (<450) pg/mL Total Protein (6.3-8.2) g/dL Albumin (3.5-5.0) g/dL Globulin (1.7-4.1) g/dL Albumin/Globulin Ratio (1.0-2.8) Procalcitonin (<0.5) ng/mL COVID-19 PCR Positive H (Negative) 08/27/20 08/27/20 08/27/20 Range/Units 20:50 20:50 20:50 WBC (4.5-11.0) X10^3/uL RBC (4.0-5.2) X10^6/uL Hgb (12.0-16.0) g/dL Hct (36-46) % MCV (80-100) fL MCH (26-34) PG MCHC (30-36) % RDW (11.6-14.8) % Plt Count (150-400) X10^3/uL Neut % (Auto) (50-75) % Lymph % (Auto) (25-40) % [place] % (Auto) (3-14) % Eos % (Auto) (2-4) % Baso % (Auto) (0-2) % Neut # (Auto) (3444-9734) /uL Lymph # (Auto) (8830-4726) /uL [place] # (Auto) (0-900) /uL Eos # (Auto) (0-450) /uL Baso # (Auto) (0-100) /uL D-Dimer (<230) ng/mL ABG pH (7.35-7.45) ABG pCO2 (35-45) mmHg ABG pO2 (80-100) mmHg ABG HCO3 (22-26) mmol/L ABG Total CO2 (21-31) mmol/L ABG O2 Saturation (95-100) % ABG Base Excess (-2-2) mmol/L FiO2 Sodium 140 (137-145) mmol/L Potassium 4.3 (3.4-5.1) mmol/L Chloride 97 L (98-107) mmol/L Carbon Dioxide 34 H (22-32) mmol/L BUN 28 H (7-17) mg/dL Creatinine 1.27 H (0.52-1.04) mg/dL Estimated GFR 40.1 L (>60) mL/min BUN/Creatinine Ratio 22.0 (6-22) Glucose 196 H (80-110) mg/dL Lactate (0.7-2.1) mmol/L Calcium 8.9 (8.4-10.2) mg/dL Magnesium (1.6-2.3) mg/dL Ferritin 82 (11-264) ng/mL Total Bilirubin 0.8 (0.2-1.3) mg/dL AST 38 H (14-36) IU/L ALT 35 H (<35) IU/L Alkaline Phosphatase 34 L (38-126) U/L Lactate Dehydrogenase 469 (313-618) U/L Total Creatine Kinase 55 (30-135) U/L CK-MB (CK-2) TNP CK-MB (CK-2) Rel Index TNP Troponin I 0.035 H (0.01-0.034) ng/mL C-Reactive Protein 7.1 H (<1.0) mg/dL NT-Pro-B Natriuret Pep 1070 H (<450) pg/mL Total Protein 8.4 H (6.3-8.2) g/dL Albumin 4.1 (3.5-5.0) g/dL Globulin 4.3 H (1.7-4.1) g/dL Albumin/Globulin Ratio 1.0 (1.0-2.8) Procalcitonin 0.13 (<0.5) ng/mL COVID-19 PCR (Negative) 08/27/20 08/27/20 08/27/20 Range/Units 20:50 20:50 22:35 WBC (4.5-11.0) X10^3/uL RBC (4.0-5.2) X10^6/uL Hgb (12.0-16.0) g/dL Hct (36-46) % MCV (80-100) fL MCH (26-34) PG MCHC (30-36) % RDW (11.6-14.8) % Plt Count (150-400) X10^3/uL Neut % (Auto) (50-75) % Lymph % (Auto) (25-40) % [place] % (Auto) (3-14) % Eos % (Auto) (2-4) % Baso % (Auto) (0-2) % Neut # (Auto) (8648-1943) /uL Lymph # (Auto) (7327-3828) /uL [place] # (Auto) (0-900) /uL Eos # (Auto) (0-450) /uL Baso # (Auto) (0-100) /uL D-Dimer (<230) ng/mL ABG pH 7.31 L (7.35-7.45) ABG pCO2 71.5 H* (35-45) mmHg ABG pO2 79 L (80-100) mmHg ABG HCO3 36 H (22-26) mmol/L ABG Total CO2 39 H (21-31) mmol/L ABG O2 Saturation 94 L (95-100) % ABG Base Excess 10.0 H (-2-2) mmol/L FiO2 36 Sodium (137-145) mmol/L Potassium (3.4-5.1) mmol/L Chloride (98-107) mmol/L Carbon Dioxide (22-32) mmol/L BUN (7-17) mg/dL Creatinine (0.52-1.04) mg/dL Estimated GFR (>60) mL/min BUN/Creatinine Ratio (6-22) Glucose (80-110) mg/dL Lactate 7.6 H* (0.7-2.1) mmol/L Calcium (8.4-10.2) mg/dL Magnesium 2.0 (1.6-2.3) mg/dL Ferritin (11-264) ng/mL Total Bilirubin (0.2-1.3) mg/dL AST (14-36) IU/L ALT (<35) IU/L Alkaline Phosphatase (38-126) U/L Lactate Dehydrogenase (313-618) U/L Total Creatine Kinase (30-135) U/L CK-MB (CK-2) CK-MB (CK-2) Rel Index Troponin I (0.01-0.034) ng/mL C-Reactive Protein (<1.0) mg/dL NT-Pro-B Natriuret Pep (<450) pg/mL Total Protein (6.3-8.2) g/dL Albumin (3.5-5.0) g/dL Globulin (1.7-4.1) g/dL Albumin/Globulin Ratio (1.0-2.8) Procalcitonin (<0.5) ng/mL COVID-19 PCR (Negative) Discharge Plan Departure Patient Disposition: Admitted As Inpatient Clinical Impression: Pneumonia due to 2019 novel coronavirus Admit Date/Time: 08/27/20 23:00 Admit Provider: Rico Lowe
--- NOTE | 2020-08-27 20:46 | DI.RAD.S_ITS ---
PROCEDURE: XR CHEST 1V INDICATIONS: flu-like symptoms increasing SOB, known COVID TECHNIQUE: One view of the chest was acquired. COMPARISON: [facility], CR, XR CHEST 1V, 12/18/2019, 13:11. FINDINGS: The patient is oblique. Surgical changes and devices: None. Lungs and pleura: Probable bibasilar alveolar opacities. There is blunting of the left costophrenic sulcus.. No pleural effusions or pneumothorax. Mediastinum: Mediastinal contours appear normal given obliquity. Heart size is enlarged, roughly stable. Bones and chest wall: No suspicious bony lesions. Overlying soft tissues appear unremarkable. IMPRESSION: 1. Probable bibasilar alveolar opacities and left effusion. 2. Stable cardiomegaly without definite central venous congestion. Dictated by: Angela La M.D. on 08/27/2020 at 22:37 Approved by: Angela La M.D. on 08/27/2020 at 22:38
[2020-08-27 21:07] LABS: Add Manual Diff / Slide Review NO; Basophils Absolute Auto 0 /uL (0-100); Basophils Percent Auto 0.3 % (0-2); Eosinophils Absolute Auto 300 /uL (0-450); Eosinophils Percent Auto 2.2 % (2-4); Hematocrit 39.4 % (36-46); Lymphocytes Absolute Auto 2100 /uL (1100-4500); Lymphocytes Percent Auto 16.1 % (25-40); Mean Corpuscular HGB Conc 30.5 % (30-36); Mean Corpuscular Hemoglobin 28.8 PG (26-34); Mean Corpuscular Volume 94.2 fL (80-100); Monocytes Absolute Auto 1100 /uL (0-900); Monocytes Percent Auto 8.6 % (3-14); Neutrophils Absolute Auto 9400 /uL (1500-7000); Neutrophils Percent Auto 72.8 % (50-75); Platelet Count 173 X10^3/uL (150-400); Red Blood Cell Count 4.18 X10^6/uL (4.0-5.2); Red Cell Distribution Width 14.9 % (11.6-14.8); White Blood Cell Count 12.9 X10^3/uL (4.5-11.0)
[2020-08-27 21:21] LABS: COVID19 -Nasal RAPID POSITIVE (Negative)
[2020-08-27 21:21] LABS: D Dimer 731 ng/mL (<230)
[2020-08-27 21:23] LABS: Lactate (Lactic Acid) 7.6 mmol/L (0.7-2.1)
[2020-08-27 21:24] LABS: C-Reactive Protein Quant 7.1 mg/dL (<1.0); Lactate Dehydrogenase 469 U/L (313-618)
[2020-08-27 21:26] LABS: Albumin 4.1 g/dL (3.5-5.0); Alkaline Phosphatase 34 U/L (38-126); Aspartate Aminotransferase 38 IU/L (14-36); Bilirubin Total 0.8 mg/dL (0.2-1.3); Blood Urea Nitrogen 28 mg/dL (7-17); Calcium 8.9 mg/dL (8.4-10.2); Carbon Dioxide 34 mmol/L (22-32); Chloride 97 mmol/L (98-107); Creatine Kinase 55 U/L (30-135); Estimated Glomerular Filt Rate 40.1 mL/min (>60); Globulin 4.3 g/dL (1.7-4.1); Glucose 196 mg/dL (80-110); HEMOLYSIS 20 (0-50); Potassium 4.3 mmol/L (3.4-5.1); Sodium 140 mmol/L (137-145); Total Protein 8.4 g/dL (6.3-8.2)
[2020-08-27 21:31] LABS: NT-proBNP (BNP-Adult 18+) 1070 pg/mL (<450)
[2020-08-27 21:32] LABS: Alanine Aminotransferase 35 IU/L (<35)
[2020-08-27 21:37] LABS: Troponin I 0.035 ng/mL (0.01-0.034)
[2020-08-27 21:42] LABS: Procalcitonin 0.13 ng/mL (<0.5)
[2020-08-27 21:56] LABS: Ferritin 82 ng/mL (11-264)
[2020-08-27 23:00] LABS: Reflexed Lactate in 2 Hours Y
[2020-08-27] MEDS: FUROSEMIDE 40 MG/4 ML VIAL IV (23:26)
[2020-08-27] MEDS: DEXAMETHASONE 10 MG/ML VIAL 6 MG IV (23:27)
[2020-08-27 23:32] LABS: Lactate 2HR (Lactic Acid Rflx) 1.4 mmol/L (0.7-2.1)
[2020-08-27 23:41] LABS: pH ABG 7.31 (7.35-7.45)
[2020-08-27 23:42] LABS: HCO3 ABG 36 mmol/L (22-26); Oxygen Saturation ABG 94 % (95-100); PCO2 ABG 71.5 mmHg (35-45); PO2 ABG 79 mmHg (80-100); TCO2 ABG 39 mmol/L (21-31)
[2020-08-27 23:43] LABS: Fractionated Inspired Oxygen 36
[2020-08-27] MEDS: REMDESIVIR 200 MG in SODIUM CHLORIDE 0.9% 210 ML 250 ML IV (23:44)
[2020-08-27] MEDS: CEFTRIAXONE 1 GM/50 ML FROZ.PIGGY IV (23:44)
--- NOTE | 2020-08-27 23:45 | DI.CT.S_ITS ---
PROCEDURE: CT ANGIO CHEST PE PROTOCOL INDICATIONS: Worsening shortness of breath, COVID positive TECHNIQUE: After the administration of intravenous contrast, 2 mm thick sections acquired from the pulmonary apices to the posterior costophrenic angles. 3-dimensional maximum intensity projection (MIP) coronal and sagittal reformats were then acquired through the thorax. For radiation dose reduction, the following was used: automated exposure control, adjustment of mA and/or kV according to patient size. COMPARISON: None. FINDINGS: Image quality: Excellent. Pulmonary arteries: Pulmonary arteries are enlarged with the main pulmonary artery measuring 40 mm. The pulmonary arteries demonstrate no intraluminal filling defects to suggest central pulmonary embolism. Lungs and pleura: Patchy opacity is present within the lingula. Subtle appearing ground-glass opacities are noted particularly within the left lobe. Dependent changes are present within the bases. No pleural effusions or pneumothorax. Central and peripheral airways are patent. Mediastinum: Heart size is enlarged, without pericardial effusion. No mediastinal or hilar adenopathy. Thoracic aorta is normal in caliber and enhancement. Esophagus is normal in caliber, without hiatal hernia. Bones and chest wall: No suspicious bony lesions. Ribs and thoracic spine appear intact throughout. Thyroid gland is . No axillary or supraclavicular adenopathy. Abdomen: Visualized upper abdominal solid organs appear normal in the early arterial phase of enhancement. IMPRESSION: 1. No pulmonary embolism. 2. Patchy opacity within the lingula as well as minimal appearance of ground-glass opacities. This could represent atelectasis and/or superimposed infection. 3. Enlarged main pulmonary artery suggestive of pulmonary artery hypertension. The above findings are concordant with preliminary report. Dictated by: Mila Mantilla M.D. on 08/28/2020 at 8:21 Approved by: Mila Mantilla M.D. on 08/28/2020 at 9:02
[2020-08-28] VITALS (14 sets, daily range): BP systolic 116–145; BP diastolic 55–70; PULSE 60–71; RESP 18–31; TEMP 36.4–37.7; O2SAT 67–93; BMI 40.2
[2020-08-28 00:33] LABS: RBC Urine None Seen (0-5/HPF); WBC Urine None Seen (0-5/HPF)
[2020-08-28 01:01] LABS: Bilirubin Urine UA NEGATIVE (NEGATIVE); Color Urine UA YELLOW; Glucose Urine UA NEGATIVE (Negative); Ketones Urine UA NEGATIVE (NEGATIVE); Leukocyte Esterase Urine UA NEGATIVE (NEGATIVE); Nitrite Urine UA NEGATIVE (Negative); Occult Blood Urine UA 1+ (Negative); Protein Urine UA 2+ (Negative); Specific Gravity Urine UA 1.025 (1.000-1.035); Urobilinogen Urine UA 0.2 E.U./dL (0.2)
[2020-08-28] MEDS: WATER FOR INJECTION,STERILE 50 ML VIAL 40 ML INJ (01:03)
--- NOTE | 2020-08-28 01:12 | PC.NURSE ---
A muse cathetor was placed in the ED. It was a 16fr that took 2 attempts. The patient tolerated the procedure well.
--- NOTE | 2020-08-28 01:19 | PM.HP.1 ---
History of Present Illness History of Present Illness Date Patient Seen: 08/28/20 Time Patient Seen: 01:30 Chief complaint: resp distress Narrative: Ms. Chana Stock is an 84-year-old female with a past medical history significant for COPD on continuous oxygen therapy 2-4 L, diabetes type 2, dementia, insomnia and psoriasis who presents to the ER from [facility] with shortness of breath. The patient is on chronic home O2 at 2-4 L however it has been titrated up to 8 L to maintain adequate saturation at the facility to the upper 80s to 90s. Patient reportedly has ncreased work of breathing, weakness andreportedly has fallen. The patient is alert and communicative however unable to contribute to the medical record in any meaningful way which is reportedly patient baseline. The patient his sent to the ER for further evaluation at the request of the family and primary care provider. The patient denies any complaints of illness or pain and denies difficulty breathing. Upon arrival to the ER the patient has a temperature 90.3?, heart rate of 62, blood pressure 176/75, respiratory rate of 38 saturating 91% on 4 L. chest x-ray is obtained which finds bibasilar revealed lower opacities, left fusion, stable cardiomyopathy without venous congestion. A CT angiograms rules out central pulmonary in lives in but notes peripheral PE may not be excluded. Chronic centrilobular emphysema, ground-glass opacities bilateral may reflect pulmonary edema or pneumonitis. On laboratory analysis the patient has an elevated white count of 12.9, hemoglobin of 12.0, hematocrit of 39.4 and platelets 173. Electrolytes within normal limits and she has a BUN of 28 the creatinine 1.27. Her nonfasting glucose is 196. She has an elevated CRP at 7.1, D-dimer at 731, lactic acid at 7.01, procalcitonin is 0.13. Ferritin is 82, LDH 469, total CK is 55, troponin is 0.035 with a proBNP of 1070. COVID 19 screening is positive. In the ER the patient received Lasix with placement of Phillips catheter, Rocephin IV for bibasilar opacities, Decadron 6 mg in remdesivir 200 mg IV. The patient is admitted to the hospitalist service as a DNR DNI with hypoxemia in the setting of COVID-19 congestive failure and possible pneumonia. Patient History Medical History Cerebral microvascular disease COPD (chronic obstructive pulmonary disease) Diabetes Insomnia Psoriasis Family & Social History Family history unavailable: No (No family history is available due to altered mental status.) Safety & Behavioral: Feels Safe in Current Yes Environment Been Physically Hurt or No Threatened By a Person Tobacco & Substance use: Smoking Status Former smoker alcohol intake frequency 0-2 drinks per day Substance Use Type does not use Meds Home Medications and Allergies Home Medications Medication Instructions Recorded Confirmed Type acetaminophen [Tylenol] 650 mg PO BID 08/28/20 08/28/20 History adalimumab [Humira Pen] 40 mg SUBCUT Q2W 08/28/20 08/28/20 History albuterol sulfate 1 inh INHALATION Q4H PRN 08/28/20 08/28/20 History albuterol sulfate [ProAir HFA] 1 inh INHALATION PRN PRN 08/28/20 08/28/20 History aspirin 81 mg PO DAILY 08/28/20 08/28/20 History citalopram 10 mg PO DAILY 08/28/20 08/28/20 History dapsone 100 mg PO DAILY 08/28/20 08/28/20 History docusate sodium 250 mg PO DAILY PRN 08/28/20 08/28/20 History fluticasone propion-salmeterol 1 inh INHALATION Q12H 08/28/20 08/28/20 History furosemide 40 mg PO DAILY 08/28/20 08/28/20 History insulin glargine [Lantus Solostar 38 unit SUBCUT QPM 08/28/20 08/28/20 History U-100 Insulin] insulin glargine [Lantus Solostar 60 unit SUBCUT QAM 08/28/20 08/28/20 History U-100 Insulin] insulin lispro [Humalog KwikPen See Rx Instructions .ROUTE .COMPLEX 08/28/20 08/28/20 History Insulin] ipratropium bromide [Atrovent HFA] 2 puff INHALATION QID PRN 08/28/20 08/28/20 History ketoconazole 1 applic TOPICAL BID PRN 08/28/20 08/28/20 History ketoconazole 1 applic TOPICAL Q2D 08/28/20 08/28/20 History melatonin 3 mg PO BEDTIME 08/28/20 08/28/20 History olanzapine 5 mg PO BEDTIME 08/28/20 08/28/20 History ondansetron [Zofran ODT] 4 mg PO Q4H PRN 08/28/20 08/28/20 History simvastatin 20 mg PO DAILY 08/28/20 08/28/20 History tiotropium bromide [Spiriva with 1 cap INHALATION DAILY 08/28/20 08/28/20 History HandiHaler] Allergies Allergy/AdvReac Type Severity Reaction Status Date / Time gabapentin [GABAPENTIN] Allergy Unknown DIZZINESS Unverified 08/28/20 01:03 NSAIDS (Non-Steroidal Allergy Unknown ADVISED TO Unverified 08/28/20 01:03 Anti-Inflamma AVOID [NSAIDS (NON-STEROIDAL ANTI-INFLAMMA] Review of Systems Review of Systems ROS: Yes All systems reviewed with the patient and are negative except as otherwise documented Exam Vital Signs (past 8 hours): - 08/27/20 20:39 08/27/20 20:41 08/27/20 20:45 Temperature Pulse Rate 73 73 68 Respiratory Rate 38 H Blood Pressure 176/75 H 186/75 H Pulse Oximetry 85 L 63 L 90 L 08/27/20 21:00 08/27/20 21:01 08/27/20 21:15 Temperature 98.3 F Pulse Rate 64 62 63 Respiratory Rate 23 38 H 26 H Blood Pressure 160/70 H 176/75 H 144/63 H Pulse Oximetry 95 91 94 08/27/20 21:30 08/27/20 21:45 08/27/20 22:00 Temperature Pulse Rate 62 63 64 Respiratory Rate 17 27 H 21 Blood Pressure 141/65 H 154/63 H 144/66 H Pulse Oximetry 93 93 91 08/27/20 22:15 08/27/20 22:30 08/27/20 22:45 Temperature Pulse Rate 63 64 65 Respiratory Rate 15 18 21 Blood Pressure 149/67 H 137/68 Pulse Oximetry 92 90 L 89 L 08/27/20 23:00 08/27/20 23:15 08/27/20 23:30 Temperature Pulse Rate 62 63 63 Respiratory Rate 27 H 27 H 15 Blood Pressure 145/65 H 141/58 H 140/63 Pulse Oximetry 92 91 89 L 08/27/20 23:45 08/28/20 00:00 Temperature Pulse Rate 67 62 Respiratory Rate Blood Pressure 153/70 H 131/60 Pulse Oximetry 85 L 89 L Oxygen Delivery Method Nasal Cannula Oxygen Flow Rate 4 Narrative Exam Narrative: GENERAL APPEARANCE: well developed, morbidly obese female who is chronically ill-appearing with mild shortness of breath on heated high-flow nasal cannula HEENT: Normocephalic, PERRLA, conjunctiva clear, sclera anicteric case tracts bilaterally, no sinus tenderness to percussion, no rhinorrhea, mucous membranes are moist and pink without lesions or exudate. NECK/THYROID: neck supple, no JVD, no carotid bruit, no thyromegaly, trachea midline. LYMPH NODES: no cervical or supraclavicular lymphadenopathy. SKIN: [place], warm and dry, contusion left anterior tibia, skin with poor turgor and scaly bilateral lower extremities HEART: regular rate and rhythm, S1-S2, no murmur, no rubs or gallops, brisk capillary refill, no edema LUNGS: Breath sounds with central rhonchi and diminished bases bilaterally with crackles, no cough present CHEST: Symmetrical movement, no accessory muscle use, speaking in full sentences. ABDOMEN: Soft, protuberant, nontender, no organomegaly the exam is limited by body habitus, no flank or suprapubic tenderness, active bowel tones. EXTREMITIES: Contusion left anterior low, strength is 3/5 and symmetrical, no deformities or joint effusions. NEUROLOGIC: AAO x person only, difficulty following multistep commands, cranial nerves II-XII grossly intact, sensation intact to light touch, hearing grossly normal to speech. PSYCH: Agitated with stimulation, pulling at tubes and lines. Objective Labs Result Diagrams: 08/28/20 04:15 08/28/20 04:15 Labs: Laboratory Results - last 24 hr 08/27/20 08/27/20 08/27/20 20:05 20:50 20:50 WBC 12.9 H RBC 4.18 Hgb 12.0 Hct 39.4 MCV 94.2 MCH 28.8 MCHC 30.5 RDW 14.9 H Plt Count 173 Neut % (Auto) 72.8 Lymph % (Auto) 16.1 L [place] % (Auto) 8.6 Eos % (Auto) 2.2 Baso % (Auto) 0.3 Neut # (Auto) 9400 H Lymph # (Auto) 2100 [place] # (Auto) 1100 H Eos # (Auto) 300 Baso # (Auto) 0 D-Dimer 731 H ABG pH ABG pCO2 ABG pO2 ABG HCO3 ABG Total CO2 ABG O2 Saturation ABG Base Excess FiO2 Sodium Potassium Chloride Carbon Dioxide BUN Creatinine Estimated GFR BUN/Creatinine Ratio Glucose Lactate Calcium Magnesium Ferritin Total Bilirubin AST ALT Alkaline Phosphatase Lactate Dehydrogenase Total Creatine Kinase CK-MB (CK-2) CK-MB (CK-2) Rel Index Troponin I C-Reactive Protein NT-Pro-B Natriuret Pep Total Protein Albumin Globulin Albumin/Globulin Ratio Procalcitonin COVID-19 PCR Positive H 08/27/20 08/27/20 08/27/20 20:50 20:50 20:50 WBC RBC Hgb Hct MCV MCH MCHC RDW Plt Count Neut % (Auto) Lymph % (Auto) [place] % (Auto) Eos % (Auto) Baso % (Auto) Neut # (Auto) Lymph # (Auto) [place] # (Auto) Eos # (Auto) Baso # (Auto) D-Dimer ABG pH ABG pCO2 ABG pO2 ABG HCO3 ABG Total CO2 ABG O2 Saturation ABG Base Excess FiO2 Sodium 140 Potassium 4.3 Chloride 97 L Carbon Dioxide 34 H BUN 28 H Creatinine 1.27 H Estimated GFR 40.1 L BUN/Creatinine Ratio 22.0 Glucose 196 H Lactate Calcium 8.9 Magnesium Ferritin 82 Total Bilirubin 0.8 AST 38 H ALT 35 H Alkaline Phosphatase 34 L Lactate Dehydrogenase 469 Total Creatine Kinase 55 CK-MB (CK-2) TNP CK-MB (CK-2) Rel Index TNP Troponin I 0.035 H C-Reactive Protein 7.1 H NT-Pro-B Natriuret Pep 1070 H Total Protein 8.4 H Albumin 4.1 Globulin 4.3 H Albumin/Globulin Ratio 1.0 Procalcitonin 0.13 COVID-19 PCR 08/27/20 08/27/20 08/27/20 20:50 20:50 22:35 WBC RBC Hgb Hct MCV MCH MCHC RDW Plt Count Neut % (Auto) Lymph % (Auto) [place] % (Auto) Eos % (Auto) Baso % (Auto) Neut # (Auto) Lymph # (Auto) [place] # (Auto) Eos # (Auto) Baso # (Auto) D-Dimer ABG pH 7.31 L ABG pCO2 71.5 H* ABG pO2 79 L ABG HCO3 36 H ABG Total CO2 39 H ABG O2 Saturation 94 L ABG Base Excess 10.0 H FiO2 36 Sodium Potassium Chloride Carbon Dioxide BUN Creatinine Estimated GFR BUN/Creatinine Ratio Glucose Lactate 7.6 H* Calcium Magnesium 2.0 Ferritin Total Bilirubin AST ALT Alkaline Phosphatase Lactate Dehydrogenase Total Creatine Kinase CK-MB (CK-2) CK-MB (CK-2) Rel Index Troponin I C-Reactive Protein NT-Pro-B Natriuret Pep Total Protein Albumin Globulin Albumin/Globulin Ratio Procalcitonin COVID-19 PCR 08/27/20 23:10 WBC RBC Hgb Hct MCV MCH MCHC RDW Plt Count Neut % (Auto) Lymph % (Auto) [place] % (Auto) Eos % (Auto) Baso % (Auto) Neut # (Auto) Lymph # (Auto) [place] # (Auto) Eos # (Auto) Baso # (Auto) D-Dimer ABG pH ABG pCO2 ABG pO2 ABG HCO3 ABG Total CO2 ABG O2 Saturation ABG Base Excess FiO2 Sodium Potassium Chloride Carbon Dioxide BUN Creatinine Estimated GFR BUN/Creatinine Ratio Glucose Lactate 1.4 Calcium Magnesium Ferritin Total Bilirubin AST ALT Alkaline Phosphatase Lactate Dehydrogenase Total Creatine Kinase CK-MB (CK-2) CK-MB (CK-2) Rel Index Troponin I C-Reactive Protein NT-Pro-B Natriuret Pep Total Protein Albumin Globulin Albumin/Globulin Ratio Procalcitonin COVID-19 PCR Assessment & Plan Assessment & Plan narrative: This is an 84-year-old female patient who presents to the ER from extended care facility with worsening shortness of breath found to be COVID positive. Acute on chronic respiratory failure with hypoxia and hypercarbia, present on admission, active -the patient has longstanding history of emphysema and is on chronic home O2 at 2-4 L per minute. The patient had worsening dyspnea today requiring increase in oxygen flow reportedly up to 8 L. -respiratory rate on arrival is 38, arterial blood gas finds a pH of 7.32, pCO2 of 71.2, PO2 of 79, bicarb 36 with a base excess of 10 on 36% FiO2, for a PF ratio of 219. -respiratory failure is multifactorial including: Emphysema as noted Elevated BNP at 1070 suggestive of heart failure Possible pneumonia as noted on chest x-ray with bibasilar opacities, elevate white count at 12.9 with increased absolute neutrophils at 9400 COVID-19 positive. -patient started on a heated high-flow nasal cannula with improvement in oxygenation and decreased respiratory rate, goal oxygen saturation is 88-92%. 2. COPD, emphysema, chronic, stable -COPD does not appear to be in exacerbation, no wheezing on auscultation. -respiratory therapy to consult evaluate and treat -ordered albuterol Atrovent MDI 2 puffs twice daily. -ordered albuterol nebulizer 2 puffs every 4 hours as needed. -order guaifenesin ER 600 mg twice daily as needed. -continue supplemental oxygen. 2. Elevated BNP, acute, present on admission, active. -the patient has central course of some basilar crackles. -the patient does not have a diagnosis of cart failure though presents with an elevated BNP of 1070. -chest x-ray finds stable cardiomyopathy without venous congestion, CT of the chest notes ground-glass opacities bilateral may reflect pulmonary edema or pneumonitis. -the patient received Lasix in the emergency department with good diuresis. -will continue patient's home regimen of furosemide 40 mg daily. 3. Possible bacterial pneumonia, present on admission, active -the patient with central coarseness and basilar crackles Chest x-ray finds bibasilar of a lower opacities in CT exam notes ground-glass opacities bilaterally may reflect pulmonary edema or pneumonitis. -patient with elevated white count of 12.9 with an increase in absolute neutrophils 9400. Procalcitonin is 0.13 -patient received Rocephin IV in the emergency room department ordered Rocephin 2 g IV every 24 hours. 4. Possible COVID-19 pneumonia, present on admission, active. -breath sounds with central coarseness some bibasilar crackles. CT finds ground-glass opacities consistent with pulmonary edema or pneumonitis. -patient tests positive for COVID-19 with current outbreak and her current residential facility. She has positive markers including D-dimer elevated at 731, CRP is 7.1, and WBCs of 12.9. Other markers ferritin is 82, LDH is 469, total CK is 55. -in setting of multifactorial etiology will treat under COVID-19 guidelines with dexamethasone 6 mg daily for 10 days, remdesivir 200 mg IV given in the ER followed by with 100 mg IV daily for 4 days. 5. Diabetes type 2 with hyperglycemia, chronic, stable. -patient with an elevated serum glucose of 196 on admission labs. Will expect further elevation in serum glucose with steroid therapy. -ordered fingerstick blood sugars a.c. and hs with high-dose correctional insulin -will continue patient's routine basal Lantus of 60 units in the morning and 38 units subcu at bedtime. -will trend glucose levels. 6. Dementia with behavioral disturbance, chronic, stable -patient's mentation is reported at baseline. -will continue patient's routine regimen of citalopram 10 mg daily and olanzapine 5 mg at bedtime, melatonin 3 mg p.o. at bedtime for sleep VTE prophylaxis: Enoxaparin IV fluid: Saline lock. Diet: Small consistent carbohydrate. Code status: DNR/DNI, the patient's son Chuck Stock is her designated power of criminal attorney. The patient is admitted to the hospital due to the severity of her symptoms, need for further evaluation and treatment and complexity of the treatment plan refilled complications and adverse events. The patient is admitted as an inpatient with expected length of stay to be greater than 2 midnights. COVID-19 COVID-19 status: Positive Result date/Date tested (Pos, Neg/Pending): 08/27/20 Scores [facility] [place] coma scale eye opening: Spontaneous [place] coma scale verbal response: Confused [place] coma scale motor response: Obey commands Laly coma scale total score: 14
[2020-08-28 01:20] LABS: Appearance Urine UA Slightly Cloudy; pH Urine UA 5.5 (4.5-8.0)
[2020-08-28 02:14] LABS: Amorphous Sediment Urine 2+; Bacteria Urine Few (2-10); Culture Indicated Urine Cult Not Indicated; Squamous Epithelial Cell Urine >30 /HPF (0-5/HPF)
[2020-08-28] MEDS: HALOPERIDOL 5 MG/ML VIAL 2 MG IV (02:37)
[2020-08-28] MEDS: HEPARIN 5,000 UNIT/ML VIAL 5000 UNIT SUBCUT ×3 (02:37→21:43)
[2020-08-28 05:09] LABS: Add Manual Diff / Slide Review NO; Basophils Absolute Auto 0 /uL (0-100); Basophils Percent Auto 0.3 % (0-2); Eosinophils Absolute Auto 0 /uL (0-450); Eosinophils Percent Auto 0.2 % (2-4); Hematocrit 35.3 % (36-46); Hemoglobin 11.4 g/dL (12.0-16.0); Lymphocytes Absolute Auto 400 /uL (1100-4500); Lymphocytes Percent Auto 4.4 % (25-40); Mean Corpuscular HGB Conc 32.3 % (30-36); Mean Corpuscular Hemoglobin 29.8 PG (26-34); Mean Corpuscular Volume 92.3 fL (80-100); Monocytes Absolute Auto 500 /uL (0-900); Monocytes Percent Auto 5.5 % (3-14); Neutrophils Absolute Auto 8700 /uL (1500-7000); Neutrophils Percent Auto 89.6 % (50-75); Platelet Count 143 X10^3/uL (150-400); Red Blood Cell Count 3.83 X10^6/uL (4.0-5.2); Red Cell Distribution Width 14.6 % (11.6-14.8); White Blood Cell Count 9.7 X10^3/uL (4.5-11.0)
[2020-08-28 05:15] LABS: BUN Creatinine Ratio 24.8 (6-22); Blood Urea Nitrogen 31 mg/dL (7-17); Calcium 8.1 mg/dL (8.4-10.2); Chloride 97 mmol/L (98-107); Estimated Glomerular Filt Rate 40.8 mL/min (>60); Glucose 225 mg/dL (80-110); HEMOLYSIS < 15 (0-50); Potassium 4.6 mmol/L (3.4-5.1); Sodium 139 mmol/L (137-145)
[2020-08-28 05:21] LABS: Carbon Dioxide 35 mmol/L (22-32)
--- NOTE | 2020-08-28 06:18 | RT ---
Patient came in with shortness of breath. At home patient wears 2 to 4 lpm at home. Due to severity of patients condition patient was put on high flow as soon as she came up to the room. Patient has been ruled covid19 positive so MD and WILDLIFE ECOLOGIST suggested heated high flow. Patient was given diuretics which has helped significantly with patients breath. Patient is currently off high flow but will leave in room incase patient deteriorates.
--- NOTE | 2020-08-28 06:25 | PC.NURSE ---
Admit Note-Patient brought to room 231, placed in negative pressure room, Contact/airborne precautions. Ana Caballero. Patient follows some directions, but is mostly uncooperative with assessment and care, says she knows where she is, month, year, but will not tell this RN, started to become angry and hostile, pulling off HHFNC and pulling at IV sites, order obtained to give 2mg IV Haldol x1, she was not cooperative with taking PO meds at that time. Cooperative with 6L NC, SpO2 88-92%, she denies shortness of breath, RR 30s. After Haldol given, she was agreeable to Now dose of SQ heparin. 1300ml UOP from [facility] after IV Lasix given in ED.
[2020-08-28] MEDS: DOCUSATE 100 MG CAPSULE PO ×2 (08:07→21:43)
[2020-08-28] MEDS: DEXAMETHASONE 10 MG/ML VIAL 6 MG IV (08:07)
[2020-08-28] MEDS: INSULIN ASPART 100 UNIT/ML INSULN PEN SUBCUT ×4 (08:23→21:40)
[2020-08-28 09:25] LABS: Troponin I 0.066 ng/mL (0.01-0.034)
[2020-08-28] MEDS: guaiFENesin ER 600 MG TAB PO (09:39)
[2020-08-28] MEDS: CITALOPRAM 10 MG TABLET PO (09:39)
[2020-08-28] MEDS: FUROSEMIDE 40 MG/4 ML VIAL IV (09:39)
[2020-08-28] MEDS: SIMVASTATIN 20 MG TABLET PO (09:39)
[2020-08-28] MEDS: INSULIN GLARGINE 100 UNIT/ML 3ML PEN 60 UNIT SUBCUT (09:40)
[2020-08-28] MEDS: DAPSONE 100 MG TABLET PO (09:41)
[2020-08-28] MEDS: TIOTROPIUM BROMIDE 18 MCG INHALER INH (10:12)
[2020-08-28] MEDS: FLUTICASONE/SALMETEROL 250/50 60 PUFF DISKUS INH ×2 (10:12→20:07)
[2020-08-28] MEDS: ALBUTEROL/IPRATROPIUM MDI 2 PUFF INH ×2 (10:16→20:06)
--- NOTE | 2020-08-28 15:07 | CM.DANOTE ---
Addendum entered by Chana Muñoz LPN 08/28/20 15:25: Have left a vm for POLuis A Stock on her cell: [phone] for introduction of DCplanning role and information that Dr. Cordova is anticipating a d/c back to [facility] tomorrow. Spoke with Sindhu/[facility] who clarifies some information re pt.( see template below) Pt and her live in small apartments next to each other. Pt's spouse, per Sindhu, is also COVID +. Sindhu confirms pt does have dx of cognitive loss and schizo-affective disorder. She is on 02 already at the facility. Sindhu is aware that Dr. Cordova plans d/c back to [facility] tomorrow. She says she will let the nursing team know. H&P completed by KAROLINE Lowe and with addendum by Dr. Cordova is now faxed to MARISOL Manley ([phone].) P: DCP team to followup with the [facility] team tomorrow in anticipation of a return to the facility as per above. Original Note: Discharge Planning/Care Management DCP: assessment: Case received, EMR reviewed and was updated on the POC just now by Dr. Cordova. Pt is COVID + Pt is an 84 year old female who admitted late last night to care of hospitalist team. PCP: facility physician team. POA: pt's son who resides in [facility] Discharge Assessment Start: 08/28/20 15:04 Freq: Status: Active Protocol: Document 08/28/20 15:04 ITV (Rec: 08/28/20 15:07 ITV [id number]) Discharge Planning Assessment Assigned Swimming Teacher Chana Muñoz Advance Directives? Yes History Provided By Medical Record Has Patient been admitted in last 30 No days? Prior Living Arrangements Assisted Living Comment pt and her Wild reside in side by side apartements at [facility]: [facility] (not part of the Memory Care community). Type of transporation used prior to Relies on Others admit Facility Name Admitted From: [facility] Willing to Return to Facility? Yes Review Status In Process
--- NOTE | 2020-08-28 15:09 | PC.NURSE ---
Pt has been calm and cooperative with care. She is requiring 4-6LPM via high flow nasal cannula with humidification to keep SPO2 88-92%. Pt does desat with turning and repositioning and requires 3-5 minutes of rest to recover. Pressure injury to coccyx noted, barrier cream applied. Maintaining turning schedule. Pt is able to feed herself, take pills whole, and make her needs known when asked. She has not tried to get up unassisted but bed alarm in use due to recent falls.
[2020-08-28] MEDS: INSULIN GLARGINE 100 UNIT/ML 3ML PEN 38 UNIT SUBCUT (16:34)
[2020-08-28 16:46] LABS: Troponin I 0.045 ng/mL (0.01-0.034)
[2020-08-28] MEDS: FAMOTIDINE 20 MG TABLET PO (21:42)
[2020-08-28] MEDS: OLANZapine 2.5 MG TABLET 5 MG PO (21:42)
[2020-08-28] MEDS: MELATONIN 3 MG TABLET 6 MG PO (21:42)
[2020-08-28] MEDS: FUROSEMIDE 20 MG/2 ML VIAL IV (21:43)
[2020-08-28] MEDS: REMDESIVIR 100 MG in SODIUM CHLORIDE 0.9% 230 ML 250 ML IV (21:44)
[2020-08-28] MEDS: KETOCONAZOLE 2% CREAM 15 GM 1 APPLIC TOP (22:11)
--- NOTE | 2020-08-28 22:41 | PC.NURSE ---
Pt alert x2 with flat affect. Position changed q 2 hr pt unable to assist with care. Alevyn placed to unstageable area on coccyx. Phillips care done. Breath sounds very coarse, Sats 94% on 6L HiFlo.
[2020-08-29] VITALS (13 sets, daily range): BP systolic 120–150; BP diastolic 58–78; PULSE 53–69; RESP 17–30; TEMP 36.6–37; O2SAT 88–93
[2020-08-29] MEDS: CEFTRIAXONE 2 GM/50 ML FROZ.PIGGY IV ×2 (01:17→22:33)
[2020-08-29 05:05] LABS: Add Manual Diff / Slide Review NO; Basophils Absolute Auto 200 /uL (0-100); Basophils Percent Auto 2.6 % (0-2); Eosinophils Absolute Auto 0 /uL (0-450); Hemoglobin 11.2 g/dL (12.0-16.0); Lymphocytes Absolute Auto 600 /uL (1100-4500); Lymphocytes Percent Auto 10.7 % (25-40); Mean Corpuscular HGB Conc 31.9 % (30-36); Mean Corpuscular Hemoglobin 29.7 PG (26-34); Mean Corpuscular Volume 92.9 fL (80-100); Monocytes Absolute Auto 1100 /uL (0-900); Monocytes Percent Auto 17.7 % (3-14); Neutrophils Absolute Auto 4100 /uL (1500-7000); Platelet Count 146 X10^3/uL (150-400); Red Blood Cell Count 3.76 X10^6/uL (4.0-5.2)
[2020-08-29 05:17] LABS: Alanine Aminotransferase 30 IU/L (<35); Albumin 3.5 g/dL (3.5-5.0); Albumin Globulin Ratio 0.9 (1.0-2.8); Alkaline Phosphatase 27 U/L (38-126); Aspartate Aminotransferase 58 IU/L (14-36); BUN Creatinine Ratio 33.9 (6-22); Bilirubin Total 0.4 mg/dL (0.2-1.3); Bilirubin Unconjugated 0.2 mg/dL (0.0-1.1); Blood Urea Nitrogen 40 mg/dL (7-17); Calcium 7.9 mg/dL (8.4-10.2); Chloride 97 mmol/L (98-107); Estimated Glomerular Filt Rate 43.6 mL/min (>60); Globulin 3.8 g/dL (1.7-4.1); Glucose 181 mg/dL (80-110); HEMOLYSIS 23 (0-50); Magnesium 2.3 mg/dL (1.6-2.3); Potassium 4.1 mmol/L (3.4-5.1); Sodium 141 mmol/L (137-145); Total Protein 7.3 g/dL (6.3-8.2)
[2020-08-29 05:23] LABS: Carbon Dioxide 39 mmol/L (22-32)
--- NOTE | 2020-08-29 06:16 | PC.NURSE ---
Felt Washing Machine Tender Note-Patient slept throughout the night with HFNC at 5L, SpO2 87-94%, breath sounds coarse anteriorly, upper airway congestion with loose non-productive cough, RR 20s-30s. SB/SR, 1st degree AVB, BBB.
[2020-08-29] MEDS: DAPSONE 100 MG TABLET PO (08:11)
[2020-08-29] MEDS: DEXAMETHASONE 10 MG/ML VIAL 6 MG IV (08:11)
[2020-08-29] MEDS: ASPIRIN EC 81 MG TABLET PO (08:11)
[2020-08-29] MEDS: SODIUM CHLORIDE 0.9% FLUSH 10 ML IV ×2 (08:11→21:02)
[2020-08-29] MEDS: FUROSEMIDE 40 MG/4 ML VIAL IV ×2 (08:11→21:01)
[2020-08-29] MEDS: CITALOPRAM 10 MG TABLET PO (08:11)
[2020-08-29] MEDS: guaiFENesin ER 600 MG TAB PO (08:11)
[2020-08-29] MEDS: HEPARIN 5,000 UNIT/ML VIAL 5000 UNIT SUBCUT ×2 (08:11→21:01)
[2020-08-29] MEDS: SIMVASTATIN 20 MG TABLET PO (08:11)
[2020-08-29] MEDS: DOCUSATE 100 MG CAPSULE PO ×2 (08:11→21:01)
[2020-08-29] MEDS: INSULIN GLARGINE 100 UNIT/ML 3ML PEN 60 UNIT SUBCUT (08:33)
[2020-08-29] MEDS: TIOTROPIUM BROMIDE 18 MCG INHALER INH (09:13)
[2020-08-29] MEDS: ALBUTEROL/IPRATROPIUM MDI 2 PUFF INH ×2 (09:13→20:28)
[2020-08-29] MEDS: FLUTICASONE/SALMETEROL 250/50 60 PUFF DISKUS INH ×2 (09:13→20:29)
--- NOTE | 2020-08-29 11:38 | CM.DPC ---
Addendum entered by MEME Mercado 08/29/20 15:11: ADD: Spoke to Hospitalist who confirms pt remains stable but Hospice referral appropriate due to heart failure patient is being treated for but unfortunately unable to get current Echo due to pt's COVID 19+ status to make confirmed dx. SW spoke to Sindhu at [facility] and they confirm [facility] referral appreciated to better support pt with oxygen needs, slow deterioration of health/heart and aware that Hospice may need the Echo to confirm dx to meet criteria but appreciate SW to make [facility] referral towards determining if pt meet hospice criteria at this time and to happen after d/c, Hospice doesnt need to be in place prior to d/c. SW also confirmed that PT eval not necessary prior to discharge for [facility] to accept pt back and therefore PT eval cancelled to reduce COVID 19 exposure and SW updated RN and PT. LEONARDO Casiano kindly made [facility] referral and SW called and spoke to intake Ronda and updated on pt and they will review to determine if pt meets criteria and will reach out to Torie and PEGGY dipesh Woods for Info Visit if appropriate. Plan: SW to follow for likely pt d/c back to [facility] tomorrow if oxgen levels remain stable and [facility] following to determine if pt meets criteria for service after d/c. SW to keep RAL, DPOA, and Hospice updated tomorrow. Original Note: DCP Cont: Per MD, pt continues to improve and now on 5L oxygen and spoke to physician at [facility] Dr. Fleming and waiting for pt to get closer to her baseline oxygen needs of 3LO2 prior to discharge due to her risk with being COVID 19+ and plan of likely d/c back to [facility] tomorrow Thurs if stable. NESTOR called [facility] Sindhu and updated on no discharge today but likely tomorrow if stable on oxygen below 5L. Sindhu states that administrators in a meeting currently to determine if Hospice consult needed prior to return. NESTOR offered to fax new referral to [facility] to review and get pt on their schedule in anticipation of possible need but Sindhu requests to get further direction from the team at [facility] today prior to Hospice referral and Sindhu will call SW back today. NESTOR called pt's DPOA son Chuck in [place] and confirmed that he has been updated on pt's medical status and d/c plan of possibly tomorrow back to [facility] and he is agreeable and very appreciative to be included and updated and no concerns at this time. Plan: SW to follow closely with Sindhu at [facility] towards likely plan of d/c tomorrow if oxygen levels closer to baseline and the potential for [facility] referral. MEME Mercado
[2020-08-29] MEDS: INSULIN ASPART 100 UNIT/ML INSULN PEN SUBCUT ×3 (12:10→21:44)
--- NOTE | 2020-08-29 12:41 | P.PN_ITS ---
Subjective Subjective Date Patient Seen: 08/29/20 Time Patient Seen: 11:30 Interval history: Ms. Chana Stock is an 84-year-old female with a past medical history significant for COPD on continuous oxygen therapy 2-4 L, diabetes type 2, dementia, insomnia and psoriasis who is admitted with acute on chronic hypoxemic and chronic hypercarbic respiratory failure. She has been stable on 4-5 L, now on 5 L currently and saturating in the upper 80s and low 90 s. Increased diuresis today as 20 mg IV BID not effective. She is calm, more alert and oriented x3 today. States she does not tolerate the bipap mask and refuses to wear it. She denies any fevers, she has a mild cough, no abdominal pain or diarrhea, no chest pain or palpitations. Exam Vital Signs (past 8 hours): - 08/29/20 05:17 08/29/20 05:43 08/29/20 08:35 Temperature 97.8 F 98.2 F Pulse Rate 54 L 53 L Respiratory Rate 23 24 Blood Pressure 135/63 123/58 L Pulse Oximetry 93 92 93 08/29/20 09:13 Temperature Pulse Rate 57 L Respiratory Rate 20 Blood Pressure Pulse Oximetry 91 Fraction of Inspired Oxygen 40 Oxygen Delivery Method High Flow Nasal Cannula Oxygen Flow Rate 5 Narrative Exam Narrative: GENERAL APPEARANCE: well developed, morbidly obese female who is chronically ill-appearing. Comfortable on nasal cannula, slightly lethargic. HEENT: Normocephalic, PERRLA, conjunctiva clear, sclera anicteric case tracts bilaterally, no sinus tenderness to percussion, no rhinorrhea, mucous membranes are moist and pink without lesions or exudate. NECK/THYROID: neck supple, no JVD, no carotid bruit, no thyromegaly, trachea midline. LYMPH NODES: no cervical or supraclavicular lymphadenopathy. SKIN: [place], warm and dry, contusion left anterior tibia, skin with poor turgor and scaly bilateral lower extremities HEART: regular rate and rhythm, S1-S2, no murmur, no rubs or gallops, brisk capillary refill, no edema LUNGS: Breath sounds diminished in the bases bilaterally with mild crackles, no cough present CHEST: Symmetrical movement, no accessory muscle use, speaking in full sentences. ABDOMEN: Soft, protuberant, nontender, no organomegaly the exam is limited by body habitus, no flank or suprapubic tenderness, active bowel tones. EXTREMITIES: Contusion left anterior low, strength is 3/5 and symmetrical, no deformities or joint effusions. NEUROLOGIC: AAO x3, cranial nerves II-XII grossly intact, sensation intact to light touch, hearing grossly normal to speech. PSYCH: slightly lethargic, but calm, cooperative, stable behavior Objective Labs Result Diagrams: 08/29/20 04:20 08/29/20 04:20 Labs: Laboratory Results - last 24 hr 08/28/20 08/29/20 08/29/20 16:00 04:20 04:20 WBC 6.0 RBC 3.76 L Hgb 11.2 L Hct 35.0 L MCV 92.9 MCH 29.7 MCHC 31.9 RDW 15.0 H Plt Count 146 L Neut % (Auto) 69.0 D Lymph % (Auto) 10.7 L Bath % (Auto) 17.7 H Eos % (Auto) 0.0 L Baso % (Auto) 2.6 H Neut # (Auto) 4100 Lymph # (Auto) 600 L Bath # (Auto) 1100 H Eos # (Auto) 0 Baso # (Auto) 200 H Sodium 141 Potassium 4.1 Chloride 97 L Carbon Dioxide 39 H BUN 40 H Creatinine 1.18 H Estimated GFR 43.6 L BUN/Creatinine Ratio 33.9 H Glucose 181 H Calcium 7.9 L Magnesium 2.3 Total Bilirubin 0.4 Conjugated Bilirubin 0.0 Unconjugated Bilirubin 0.2 AST 58 H ALT 30 Alkaline Phosphatase 27 L Troponin I 0.045 H Total Protein 7.3 Albumin 3.5 Globulin 3.8 Albumin/Globulin Ratio 0.9 L [facility] History Cerebral microvascular disease COPD (chronic obstructive pulmonary disease) Diabetes Insomnia Psoriasis Social History Smoking Status: Former smoker Assessment & Plan Assessment & Plan narrative: This is an 84-year-old female patient who is admitted with acute on chronic hypoxemic respiratory failure secondary to multiple factors including COVID 19 pneumonia. 1. Acute on chronic respiratory failure with hypoxia chronic respiratory failure with hypercapnea, present on admission, active -the patient has longstanding history of emphysema and is on chronic home O2 at 2-4 L per minute. The patient had worsening dyspnea at her living facility requiring increase in oxygen flow reportedly up to 8 L. -patient started on a heated high-flow nasal cannula with improvement in oxygenation and decreased respiratory rate initially now improved to 5L nasal cannula and appears comfortable after some diuresis. goal oxygen saturation is 88-92%. -respiratory rate on arrival was 38, arterial blood gas finds a pH of 7.32, pCO2 of 71.2, PO2 of 79, bicarb 36 with a base excess of 10 on 36% FiO2, for a PF ratio of 219. Repeat blood gas today on 5L pH 7.34, PCO2 72.4, pO2 70. This is likely her baseline CO2 as she appears compensated. Consider trilogy given intolerance of bipap however this may be difficult in setting of COVID pneumonia. -respiratory failure is multifactorial including: Emphysema/COPD as noted Elevated BNP at 1070 suggestive of heart failure, however unable to confirm with TTE given + COVID as result would not likely pipe changer. Further possibilities include Cor Pulmonale / pulm HTN from COPD. COVID 19 pneumonia with possible superimposed pneumonia. -continue remdesevir and steroids, diuresis, and antibiotics as further discussed below. -Appreciate respiratory therapy assistance. 2. COPD with exacerbation, emphysema, chronic -Likely COPD exacerbation given hypercarbic component, however this has remained stable and she is appropriately compensated on her blood gases. Patient is on steroid therapy for COVID pneumonia which will adequately treat any COPD exacerbation. -respiratory therapy following -continue albuterol Atrovent MDI 2 puffs twice daily. -continue albuterol nebulizer 2 puffs every 4 hours as needed. -continue guaifenesin ER 600 mg twice daily as needed. 3. Elevated proBNP, acute, present on admission, active. -elevated BNP of 1070 -chest x-ray finds stable cardiomyopathy without venous congestion, CT of the chest notes ground-glass opacities bilateral may reflect pulmonary edema or pneumonitis. -the patient received Lasix in the emergency department with good diuresis and improvement in oxygenation. Ineffective diuresis at 20 mg IV BID yesterday, have increased today to 40 mg IV BID. Phillips catheter in place for accurate urine output. -Discussed with echo department, given COVID 19 status and no evidence of severe cardiogenic shock, asking to limit TTEs to emergent studies. Will continue diuresis and would consider outpatient TTE if desired as an outpatient. 4. Possible superimposed bacterial pneumonia, present on admission, active -Chest x-ray finds bibasilar of a lower opacities in CT exam notes ground-glass opacities bilaterally may reflect pulmonary edema or pneumonitis. -patient with elevated white count of 12.9 with an increase in absolute neutrophils 9400. Procalcitonin 0.13 -patient received Rocephin IV in the emergency room department and will continue Rocephin 2 g IV every 24 hours for 5 day total course given improvement. 5. COVID-19 pneumonia, present on admission, active. -patient tests positive for COVID-19 with current outbreak and her current residential facility. She has positive markers including D-dimer elevated at 731, CRP is 7.1, and WBCs of 12.9. Other markers ferritin is 82, LDH is 469, total CK is 55. CT angiogram negative for PE, and does not show a significant pulmonary involvement or inflammation at least as of admission. -in setting of multifactorial etiology will treat under COVID-19 guidelines with dexamethasone 6 mg daily for 10 days, remdesivir 200 mg IV given in the ER followed by with 100 mg IV daily for 4 days. 6. Diabetes type 2 with hyperglycemia, chronic, stable. -patient with an elevated serum glucose of 196 on admission labs. Will expect further elevation in serum glucose with steroid therapy. -ordered fingerstick blood sugars a.c. and hs with high-dose correctional insulin -will continue patient's routine basal Lantus of 60 units in the morning and 38 units subcu at bedtime. -will trend glucose levels. 7. Dementia with behavioral disturbance, chronic, stable -patient's mentation is now at baseline after initial metabolic encephalopathy. She is oriented x3 today and more pleasant and cooperative. This is the baseline per her PMD Dr. Ortega. -will continue patient's routine regimen of citalopram 10 mg daily and olanzapine 5 mg at bedtime, melatonin 3 mg p.o. at bedtime for sleep 8. Metabolic encephalopathy, acute, present on admission, resolved. - patient presented with agitation and confusion as evidence by her improved orientation today. Resolved after above therapies. Likely in the setting of acute respiratory failure. 9. psoriasis, chronic, stable. hold immunomodulators in setting of active infection. VTE prophylaxis: Enoxaparin IV fluid: Saline lock. Diet: Small consistent carbohydrate. Code status: DNR/DNI, the patient's son Chuck Stock is her designated power of mergers and acquisitions attorney. Dispo: Admitted as inpatient. If she remains stable on this amount of oxygen, she could possibly return to [facility] as soon as tomorrow, PT ricci ordered.
[2020-08-29 13:09] LABS: pH ABG 7.34 (7.35-7.45)
[2020-08-29 13:10] LABS: HCO3 ABG 39 mmol/L (22-26); Oxygen Saturation ABG 92 % (95-100); PCO2 ABG 72.4 mmHg (35-45); PO2 ABG 70 mmHg (80-100); TCO2 ABG 41 mmol/L (21-31)
[2020-08-29 13:12] LABS: Fractionated Inspired Oxygen 45
--- NOTE | 2020-08-29 14:23 | PC.NURSE ---
Addendum entered by Chas Clements R.N. 08/29/20 14:58: [facility] states they do not need PT eval before accepting pt back. Spoke with Dr. Cordova. Orders received to dc PT eval. Original Note: Pt has been resting in bed today. She declined OOB to chair despite education to importance of mobilizing. It's just not worth it. Turning pt as tolerated. She does tend to turn herself to the left side. She has denied pain. She is answering questions correctly with clear speech aside from specific day/date. She has been calm and cooperative with care other than declining OOB. During turning with bed bath, pt did have desats to 81% on 5L high flow NC. She was able to recover sats to 89% with upright positioning and 3 minutes of rest. RR 20-24 at rest and up to 36 with minimal activity. RT obtained ABG and attempted to titrate O2 to 4L but pt was noted to be 85% on her SPO2 after about 10 minutes. O2 titrated back to 5L.
--- NOTE | 2020-08-29 14:39 | CM.DPNOTE ---
Faxed clinicals to [facility] on 08/29/20 for referral. Stephenie Perez CM Asst.
[2020-08-29] MEDS: INSULIN GLARGINE 100 UNIT/ML 3ML PEN 38 UNIT SUBCUT (17:15)
[2020-08-29] MEDS: MELATONIN 3 MG TABLET 6 MG PO (21:01)
[2020-08-29] MEDS: FAMOTIDINE 20 MG TABLET PO (21:01)
[2020-08-29] MEDS: OLANZapine 2.5 MG TABLET 5 MG PO (21:01)
[2020-08-29] MEDS: REMDESIVIR 100 MG in SODIUM CHLORIDE 0.9% 230 ML 250 ML IV (21:02)
[2020-08-30 00:03] VITALS: BP 136/61; PULSE 75; RESP 20; TEMP 37.2; O2SAT 91
[2020-08-30 05:00] VITALS: BP 150/65; PULSE 57; RESP 21; TEMP 36.6; O2SAT 91
[2020-08-30 05:07] LABS: Add Manual Diff / Slide Review NO; Basophils Absolute Auto 100 /uL (0-100); Basophils Percent Auto 0.8 % (0-2); Eosinophils Absolute Auto 0 /uL (0-450); Eosinophils Percent Auto 0.1 % (2-4); Hematocrit 35.2 % (36-46); Lymphocytes Absolute Auto 1500 /uL (1100-4500); Lymphocytes Percent Auto 20.2 % (25-40); Mean Corpuscular HGB Conc 31.4 % (30-36); Mean Corpuscular Hemoglobin 29.2 PG (26-34); Mean Corpuscular Volume 93.1 fL (80-100); Monocytes Absolute Auto 1100 /uL (0-900); Monocytes Percent Auto 14.3 % (3-14); Neutrophils Absolute Auto 4800 /uL (1500-7000); Neutrophils Percent Auto 64.6 % (50-75); Platelet Count 173 X10^3/uL (150-400); Red Blood Cell Count 3.78 X10^6/uL (4.0-5.2); Red Cell Distribution Width 14.6 % (11.6-14.8); White Blood Cell Count 7.4 X10^3/uL (4.5-11.0)
[2020-08-30 05:15] LABS: Alanine Aminotransferase 39 IU/L (<35); Albumin 3.4 g/dL (3.5-5.0); Albumin Globulin Ratio 0.9 (1.0-2.8); Alkaline Phosphatase 25 U/L (38-126); Aspartate Aminotransferase 67 IU/L (14-36); BUN Creatinine Ratio 42.1 (6-22); Bilirubin Total 0.5 mg/dL (0.2-1.3); Bilirubin Unconjugated 0.1 mg/dL (0.0-1.1); Blood Urea Nitrogen 51 mg/dL (7-17); Calcium 7.9 mg/dL (8.4-10.2); Chloride 96 mmol/L (98-107); Estimated Glomerular Filt Rate 42.4 mL/min (>60); Globulin 3.9 g/dL (1.7-4.1); Glucose 105 mg/dL (80-110); HEMOLYSIS 36 (0-50); Magnesium 2.1 mg/dL (1.6-2.3); Potassium 3.9 mmol/L (3.4-5.1); Sodium 140 mmol/L (137-145); Total Protein 7.3 g/dL (6.3-8.2)
[2020-08-30 05:23] LABS: Carbon Dioxide 42 mmol/L (22-32)
--- NOTE | 2020-08-30 05:35 | PC.NURSE ---
NOC Note: Pt has been comfortable all shift, fine crackles in bases and expiratory wheezing noted, occ non productive cough. Turned Q2hrs. Critical labs report at 0525, KAROLINE Domingo notified, O2 was at 5L NC and turned down to 4L at this time.
[2020-08-30 08:00] VITALS: BP 146/67; PULSE 56; RESP 20; TEMP 36.7; O2SAT 89
[2020-08-30] MEDS: ASPIRIN EC 81 MG TABLET PO (08:21)
[2020-08-30] MEDS: DAPSONE 100 MG TABLET PO (08:21)
[2020-08-30] MEDS: CITALOPRAM 10 MG TABLET PO (08:21)
[2020-08-30] MEDS: guaiFENesin ER 600 MG TAB PO (08:21)
[2020-08-30] MEDS: HEPARIN 5,000 UNIT/ML VIAL 5000 UNIT SUBCUT (08:21)
[2020-08-30] MEDS: FUROSEMIDE 40 MG/4 ML VIAL IV (08:22)
[2020-08-30] MEDS: DOCUSATE 100 MG CAPSULE PO (08:22)
[2020-08-30] MEDS: DEXAMETHASONE 10 MG/ML VIAL 6 MG IV (08:22)
[2020-08-30] MEDS: SIMVASTATIN 20 MG TABLET PO (08:22)
[2020-08-30] MEDS: SODIUM CHLORIDE 0.9% FLUSH 10 ML IV (09:39)
[2020-08-30 09:45] VITALS: PULSE 57; RESP 14; O2SAT 87
[2020-08-30] MEDS: ALBUTEROL/IPRATROPIUM MDI 2 PUFF INH (09:45)
[2020-08-30] MEDS: TIOTROPIUM BROMIDE 18 MCG INHALER INH (09:45)
[2020-08-30] MEDS: FLUTICASONE/SALMETEROL 250/50 60 PUFF DISKUS INH (09:45)
[2020-08-30 10:30] VITALS: O2SAT 89
[2020-08-30 12:02] LABS: pH ABG 7.37 (7.35-7.45)
[2020-08-30 12:04] LABS: HCO3 ABG 40 mmol/L (22-26); Oxygen Saturation ABG 92 % (95-100); PO2 ABG 69 mmHg (80-100); TCO2 ABG 42 mmol/L (21-31)
[2020-08-30 12:05] LABS: Fractionated Inspired Oxygen 36
[2020-08-30 12:18] LABS: Hemoglobin A1C% w Est Avg Glu 6.4 % (4.0-6.0)
--- NOTE | 2020-08-30 12:31 | P.DS_ITS ---
History of Present Illness History of Present Illness Date Patient Seen: 08/28/20 Chief complaint: resp distress Narrative: Written by Rico RAMEY: Ms. Chana Stock is an 84-year-old female with a past medical history significant for COPD on continuous oxygen therapy 2-4 L, diabetes type 2, dementia, insomnia and psoriasis who presents to the ER from [facility] with shortness of breath. The patient is on chronic home O2 at 2-4 L however it has been titrated up to 8 L to maintain adequate saturation at the facility to the upper 80s to 90s. Patient reportedly has ncreased work of breathing, weakness andreportedly has fallen. The patient is alert and communicative however unable to contribute to the medical record in any meaningful way which is reportedly patient baseline. The patient his sent to the ER for further evaluation at the request of the family and primary care provider. The patient denies any complaints of illness or pain and denies difficulty breathing. Upon arrival to the ER the patient has a temperature 90.3?, heart rate of 62, blood pressure 176/75, respiratory rate of 38 saturating 91% on 4 L. chest x-ray is obtained which finds bibasilar revealed lower opacities, left fusion, stable cardiomyopathy without venous congestion. A CT angiograms rules out central pulmonary in lives in but notes peripheral PE may not be excluded. Chronic centrilobular emphysema, ground-glass opacities bilateral may reflect pulmonary edema or pneumonitis. On laboratory analysis the patient has an elevated white count of 12.9, hemoglobin of 12.0, hematocrit of 39.4 and platelets 173. Electrolytes within normal limits and she has a BUN of 28 the creatinine 1.27. Her nonfasting glucose is 196. She has an elevated CRP at 7.1, D-dimer at 731, lactic acid at 7.01, procalcitonin is 0.13. Ferritin is 82, LDH 469, total CK is 55, troponin is 0.035 with a proBNP of 1070. COVID 19 screening is positive. In the ER the patient received Lasix with placement of Phillips catheter, Rocephin IV for bibasilar opacities, Decadron 6 mg in remdesivir 200 mg IV. The patient is admitted to the hospitalist service as a DNR DNI with hypoxemia in the setting of COVID-19 congestive failure and possible pneumonia. Discharge Providers Provider Date of admission: 08/27/20 23:00 Discharge Date: 08/30/20 Consults: 08/27/20 23:49 Consult to Discharge Planning Routine Comment: Discharge provider: Annmarie Blancas DO Summary Hospital Course Discharge Diagnosis: 1. Acute on chronic hypoxemic and hypercarbic respiratory failure, present on admission. Acute portion resolved. 2. COVID-19 viral pneumonia with possible superimposed bacterial pneumonia, present on admission. Resolved. 3. Emphysema/COPD with exacerbation, present on admission. Acute exacerbation resolved. 4. Elevated proBNP and possible exacerbation pulmonary hypertension with cor pulmonale, present on admission. Resolved. 5. Acute metabolic encephalopathy in setting of chronic mild dementia with behavioral disturbance, present on admission. Acute metabolic encephalopathy resolved. 6. Diabetes mellitus type 2, insulin using, chronic, present on admission. Stable. 7. Psoriasis, chronic, present on admission. Stable. Hospital Course: Chana Stock is an 84-year-old female with a past medical history significant for COPD on continuous oxygen therapy 2-4 L, diabetes mellitus type 2, insulin using, mild dementia with behavioral disturbance and insomnia who presented to the ED from assisted living facility at [facility] for progressive worsening shortness of breath. 1. Acute on chronic hypoxemic and hypercarbic respiratory failure, present on admission. Acute portion resolved. -Acute portion of respiratory failure is due to COVID-19 viral pneumonia with possible superimposed bacterial pneumonia and possible heart failure/cor pulmonale. Chronic portion of respiratory failure is due to longstanding emphysema. -Patient presented with shortness of breath, tachypnea and increase in requirement of supplemental oxygen from baseline of 2-4 L to 8 L at assisted living facility. -Continued respiratory therapy evaluation and treatment. Patient was initially placed on heated high-flow oxygen with improvement and titration off heated high-flow to supplemental oxygen now at baseline 3 L with oxygen saturations high 88-92%. DO NOT want to over oxygenate patient has this will precipitate hypercarbia and CO2 retention. Educated patient regarding necessity of BiPAP to improve hypercarbia and the patient refuses to use BiPAP due to claustrophobia. -Repeat ABG demonstrated stable and compensated hypoxemic and hypercarbic respiratory failure with PO2 69 and pCO2 70 with SpO2 92% on 4 L of supplemental oxygen. Patient is at baseline oxygen requirement of 2-4 L. 2. COVID-19 viral pneumonia with possible superimposed bacterial pneumonia, pr esent on admission. Resolved. -COVID-19 positive with current outbreak and her current residential facility. Inflammatory markers elevated including: D-dimer 731, CRP 7.1, LDH 469. -Chest x-ray demonstrated minimal patchy bibasilar opacities and stable cardiomyopathy without venous congestion. -CTA chest demonstrated enlarged main pulmonary artery suggestive of pulmonary artery hypertension and patchy minimal bilateral ground-glass opacities which may reflect pulmonary edema or pneumonitis. No pulmonary embolism. -Initial WBC 12.9 and procalcitonin 0.13. WBC normalized and procalcitonin r emained minimally elevated. Continued to monitor WBC and procalcitonin daily. Patient with possible superimposed bacterial pneumonia and continued ceftriaxone 2 g IV daily. Discharged on cefdinir 300 mg twice daily for 2 additional days to complete 5 day total antibiotic treatment. -Continued dexamethasone 6 mg IV daily for 10 days or until time of hospital discharge whichever comes 1st and remdesivir 100 mg IV daily. -Continued to encourage prone positioning frequently and is much as tolerated. 3. Emphysema/COPD with exacerbation, present on admission. Acute exacerbation resolved. -Patient is on steroid therapy for COVID-19 viral pneumonia as above which adequately treated any COPD/emphysema exacerbation. -Continued respiratory therapy evaluation treatment. Continued Combivent 2 puffs daily and albuterol inhaler 4 puffs every 2 hours as needed for shortness of breath or wheezing. Continued guaifenesin ER 1200 mg twice daily to help thin mucus secretions. Continued pulmonary toilet and encouraged frequent use of incentive spirometer and Acapella. -Recommend consideration of hospice for symptomatic control with inevitable decline in pulmonary function over time and in the setting of patient who refuses BiPAP. 4. Elevated proBNP and possible exacerbation pulmonary hypertension with cor pulmonale, present on admission. Resolved. -ProBNP 1070. -Chest x-ray demonstrated stable cardiomyopathy without venous congestion. -CTA chest demonstrated enlarged main pulmonary artery suggestive of pulmonary artery hypertension and patchy minimal bilateral ground-glass opacities which may reflect pulmonary edema or pneumonitis. No pulmonary embolism. -Received furosemide 40 mg IV x1 in ED with good diuresis and improvement in oxygenation. Continued furosemide 40 mg IV twice daily with effective diuresis. Patient now euvolemic and discontinued IV diuresis and restarted home furosemide 40 mg daily. -Discussed with echocardiogram department given COVID-19 status and no evidence of severe cardiogenic shock and requests echocardiograms be limited to emergent studies. Consider outpatient echocardiogram once the patient recovers from acute illness. -Continued strict I&Os and daily weights. Net -3.8 L. 5. Acute metabolic encephalopathy in setting of chronic mild dementia with behavioral disturbance, present on admission. Acute metabolic encephalopathy resolved. -Patient presented with agitation and confusion due to acute on chronic hypoxemic and hypercarbic respiratory failure, COVID-19 viral pneumonia with possible superimposed bacterial pneumonia and possible CHF and resolved with treatment as above. -Patient's mentation is now at baseline per PCP and she is alert oriented x3, pleasant, cooperative and has capacity to make own decisions. Patient has mild dementia with behavioral disturbance which is subtle and stable. -Continued home citalopram 10 mg daily and olanzapine 5 mg at bedtime. 6. Diabetes mellitus type 2, insulin using, chronic, present on admission. Stable. -Hemoglobin A1c 6.4% indicative of tight glycemic control. -Continued ACHS blood glucose checks and high-dose correctional scale insulin. -Continued home Lantus decreased due to poor appetite and to avoid hypoglycemia from 60 units to 30 units daily and from 38 units to 20 units daily at bedtime. -Continued heart healthy/carbohydrate consistent diet. 7. Psoriasis, chronic, present on admission. Stable. -Held Humira in setting of active infection as above and may resume in 2 weeks from time of hospital discharge. Exam Vital Signs (past 8 hours): - 08/30/20 05:00 08/30/20 08:00 08/30/20 09:45 Temperature 97.8 F 98.1 F Pulse Rate 57 L 56 L 57 L Respiratory Rate 21 20 14 Blood Pressure 150/65 H 146/67 H Pulse Oximetry 91 89 L 87 L 08/30/20 10:30 Temperature Pulse Rate Respiratory Rate Blood Pressure Pulse Oximetry 89 L Fraction of Inspired Oxygen 40 Oxygen Delivery Method High Flow Nasal Cannula Oxygen Flow Rate 3 Narrative Exam Narrative: General: Elderly female sitting in bedside chair and in no acute distress, well-developed, well-nourished, appropriately interactive. HEENT: Normocephalic, atraumatic. External ears without defect. Pupils equal, round, and reactive to light and accommodation. Anicteric sclerae, moist conjunctivae, and no lid lag. Oropharynx free of erythema and cobble stoning with moist mucosa. Neck: Supple with full range of motion. No jugular venous distension. No lymphadenopathy or thyromegaly. Cardiovascular: Regular rate and rhythm without murmurs, rubs, or gallops appreciated. Pulmonary: Diminished throughout clear to auscultation bilaterally with upper airway rhonchi and no crackles, wheezes, or rhonchi throughout lung horton. Normal respiratory effort with no use of accessory muscles. Abdomen: Soft, bowel sounds present, nontender, nondistended. No hepatosplenomegaly or masses appreciated. Extremities: No clubbing, cyanosis, or edema. Skin: Normal temperature, turgor, and texture; no rash, ulcers, or subcutaneous nodules appreciated. Neurological: Cranial nerves grossly intact. Generalized weakness. Psychiatric: Normal mood and affect. Alert and oriented to person, place, and time. Mild dementia with short-term memory recall deficit. Decisional capacity intact. Patient is pleasant and cooperative. Objective Labs Result Diagrams: 08/30/20 04:15 08/30/20 04:15 Labs: Laboratory Results - last 24 hr 08/29/20 08/30/20 08/30/20 12:59 04:15 04:15 WBC 7.4 RBC 3.78 L Hgb 11.0 L Hct 35.2 L MCV 93.1 MCH 29.2 MCHC 31.4 RDW 14.6 Plt Count 173 Neut % (Auto) 64.6 Lymph % (Auto) 20.2 L Cook % (Auto) 14.3 H Eos % (Auto) 0.1 L Baso % (Auto) 0.8 Neut # (Auto) 4800 Lymph # (Auto) 1500 Cook # (Auto) 1100 H Eos # (Auto) 0 Baso # (Auto) 100 ABG pH 7.34 L ABG pCO2 72.4 H* ABG pO2 70 L ABG HCO3 39 H ABG Total CO2 41 H ABG O2 Saturation 92 L ABG Base Excess 13.0 H FiO2 45 Sodium 140 Potassium 3.9 Chloride 96 L Carbon Dioxide 42 H* BUN 51 H Creatinine 1.21 H Estimated GFR 42.4 L BUN/Creatinine Ratio 42.1 H Glucose 105 Hemoglobin A1c Calcium 7.9 L Magnesium 2.1 Total Bilirubin 0.5 Conjugated Bilirubin 0.0 Unconjugated Bilirubin 0.1 AST 67 H ALT 39 H Alkaline Phosphatase 25 L Total Protein 7.3 Albumin 3.4 L Globulin 3.9 Albumin/Globulin Ratio 0.9 L 08/30/20 08/30/20 04:15 11:42 WBC RBC Hgb Hct MCV MCH MCHC RDW Plt Count Neut % (Auto) Lymph % (Auto) Cook % (Auto) Eos % (Auto) Baso % (Auto) Neut # (Auto) Lymph # (Auto) Cook # (Auto) Eos # (Auto) Baso # (Auto) ABG pH 7.37 ABG pCO2 70.0 H* ABG pO2 69 L ABG HCO3 40 H ABG Total CO2 42 H ABG O2 Saturation 92 L ABG Base Excess 15.0 H FiO2 36 Sodium Potassium Chloride Carbon Dioxide BUN Creatinine Estimated GFR BUN/Creatinine Ratio Glucose Hemoglobin A1c 6.4 H Calcium Magnesium Total Bilirubin Conjugated Bilirubin Unconjugated Bilirubin AST ALT Alkaline Phosphatase Total Protein Albumin Globulin Albumin/Globulin Ratio PFS Medical History Cerebral microvascular disease COPD (chronic obstructive pulmonary disease) Diabetes Insomnia Psoriasis Social History Smoking Status: Former smoker Discharge Plan Discharge Plan Patient Disposition: Assisted Living Transfer to: [facility] Under care of provider: Farm Assistant Discharge orders & Medications Discharge Orders: Discharge (Order); Ordered 08/30/20 Ordered By: Annmarie Blancas Prescriptions: New guaifenesin [Mucus Relief ER] 600 mg Tablet Extended Release 12hr 1,200 mg PO Q12HR PRN (Reason: Cough) Qty: 30 RF: 0 cefdinir 300 mg capsule 300 mg PO BID Qty: 4 RF: 0 Continued furosemide 40 mg tablet 40 mg PO DAILY RF: 0 fluticasone propion-salmeterol 250-50 mcg/dose blister with device 1 inh INHALATION Q12H RF: 0 acetaminophen [Tylenol] 325 mg Tablet 650 mg PO BID RF: 0 ketoconazole 2 % shampoo 1 applic TOPICAL Q2D RF: 0 citalopram 10 mg tablet 10 mg PO DAILY RF: 0 olanzapine 5 mg tablet 5 mg PO BEDTIME RF: 0 melatonin 3 mg Tablet 3 mg PO BEDTIME RF: 0 simvastatin 20 mg tablet 20 mg PO DAILY RF: 0 dapsone 100 mg tablet 100 mg PO DAILY RF: 0 aspirin 81 mg Tablet 81 mg PO DAILY RF: 0 albuterol sulfate 90 mcg/actuation Hfa Aerosol Inhaler 1 inh INHALATION Q4H PRN (Reason: Shortness Of Breath) RF: 0 albuterol sulfate [ProAir HFA] 90 mcg/actuation Hfa Aerosol Inhaler 1 inh INHALATION PRN PRN (Reason: Shortness Of Breath) RF: 0 docusate sodium 250 mg Capsule 250 mg PO DAILY PRN (Reason: Constipation) RF: 0 ketoconazole 2 % Cream 1 applic TOPICAL BID PRN (Reason: Rash) RF: 0 ondansetron 4 mg Tablet,Disintegrating 4 mg PO Q4H PRN (Reason: Nausea) RF: 0 insulin lispro [Humalog KwikPen Insulin] 100 unit/mL insulin pen See Rx Instructions .ROUTE .COMPLEX RF: 0 Spiriva with HandiHaler 18 mcg capsule, w/inhalation device 1 cap INHALATION DAILY RF: 0 Atrovent HFA 17 mcg/actuation HFA aerosol inhaler 2 puff INHALATION QID PRN (Reason: Shortness Of Breath) RF: 0 Humira Pen 40 mg/0.8 mL pen injector kit 40 mg SUBCUT Q2W RF: 0 Changed Lantus Solostar U-100 Insulin 100 unit/mL (3 mL) insulin pen 30 unit SUBCUT QAM Qty: 0 RF: 0 Lantus Solostar U-100 Insulin 100 unit/mL (3 mL) insulin pen 20 unit SUBCUT QPM Qty: 0 RF: 0 Diet/Activity/Treatments Diet: Carb-consistent/Diabetic, Low-fat, Low-sodium and Low-cholesterol Activity: Activity as tolerated with walker and physical and occupational th erapy Oxygen: home continuous 2-4L [facility] Rehab type: Physical therapy and Occupational therapy
--- NOTE | 2020-08-30 12:58 | PC.NURSE ---
pt refuses scd's stating they are uncomfortable- muse and iv removed in anticipation for discharge- she is presently on 4l hfnc with spo2 88-92% denies any dyspnea or pain- she was informed of discharge per MD and then updated by serena candelaria that this was being disputed by her son - SHE ASKED ME TO CALL HER SON- WHICH I DID AND LEFT A MESSAGE. SHE IS UP IN CHAIR FOLLOWING USING [facility] FOR LARGE BM - TRANSFERS WELL AND ABLE TO COMMUNICATE HER NEEDS- SHE DISLIKES THE FOOD DELIVERED TO HER HERE AT AND HASN'T BEEN EATING MUCH- ALL INSULIN HELD THIS AM DUE TO LOW BG- BUT COVERED WITH 2 U AT LUNCHTIME FOR A BG OF 155
[2020-08-30 13:14] LABS: Procalcitonin 0.32 ng/mL (<0.5)
--- NOTE | 2020-08-30 13:14 | CM.DPC ---
Addendum entered by Hannah Farnsworth R.N. 08/30/20 15:00: Update.. I called Medicare at [phone] to find out what rule that [employer]iz[employer] was using to allow a POA to override a patient - who is mentally competent to participate in her own healthcare. This patient wants to discharge to assisted living, Dr. Blancas feels she is stable medically for discharge, the facility rep Cortez has assessed this patient agrees that she is stable to return to [place]. I explained this to the [facility] automotive sales representative Maria Elena who says that there is no rule where a POA can override a mentally competent patient's decision to be discharged home. Maria Elena saw no reason for this discharge to be appealed and agreed she should return to [place] since all of the above exists. Call ref#[id number] Original Note: DCP Cont: Dr. Blancas indicated early this morning, and at team rounds that patient is medically stable for discharge. Updated Sindhu at [facility], and she mentioned that she would like to have Cortez, community center director, come over and visualize patient. Curtain is opened, and could see patient through the glass so he would not have to enter room. Dr. Fleming, provider at [facility], called this space planner. Stated that she found out that hospice consult was being considered, and wanted to know why son was not updated. Let her know that this could have been patient's decision. Dr. Fleming also stated that she initially had spoken to son, and he felt, she probably shouldn't be discharged today, had concerns about her oxygen. Let Dr. Fleming know that Dr. Blancas felt that patient is medically ready for discharge today, and is now on 3 liters. Patient also wants to go back to [facility] today. Asked Dr. Fleming to update son, about patient being ready for discharge today, and to call this space planner with any concerns. Dr. Fleming called back, stated that she spoke to son, and he was going to appeal discharge on Medicare form, and call them. Updated Jeanette, arts manager, and stated that if patient is decisional, she should have a say about going home. She was going to contact [facility], as well, to see if patient can go, since she is wanting to go home. Jeanette came back after contacting [facility], and stated that patient can stay up to 48 hours, since the appeal has already been initiated. Patient is wanting to go home. Maria C, ICU nurse has left son a message, for patient wants to speak to him about going home. Med sheets have already been signed, and MADONNA Casiano, administrative technician, will be faxing [facility] all of their requests of medical chart, as is obligation of them, this is pending DC summary. Sindhu at [facility] has been updated, she has already spoken to Dr. Ortega at the facility. P: Original plan was for patient to discharge home. Son has not returned any calls. This case management coordinator had left him a message earlier, and stated that patient was stable to discharge back to [facility] today, and that this was patient's wishes. Patient may not discharge today secondary to appeal process. Kristan Balderas, RN/Medicaid Collection Specialist
[2020-08-30] MEDS: INSULIN ASPART 100 UNIT/ML INSULN PEN SUBCUT (13:15)
--- NOTE | 2020-08-30 16:58 | PC.NURSE ---
Patient with discharge orders, and patient agreeable for discharge back to [facility]. Staff from [facility] came by to take patient over to [facility]. This RN called 3 different numbers couple of times each to try and give report. Was unable to get a nurse to answer. Patient stated she had no belongings except her clothing, which she was wearing.
== END 2020-08-30 16:30 | DRG 177 ==
LOC: ED 21:19 → ICU 08-28 02:30 → AC 08-31 13:24
PROVIDERS: Internal Medicine; Admitting Provider Nurse Practitioner Adult Health; Emergency Provider Emergency Medicine; Referring Provider Emergency Medicine; Visit Provider Nurse Practitioner Adult Health
DX: U07.1 COVID-19 (principal); J12.89 Other viral pneumonia; J96.22 Acute and chronic respiratory failure with hypercapnia; J96.21 Acute and chronic respiratory failure with hypoxia; J15.9 Unspecified bacterial pneumonia; G93.41 Metabolic encephalopathy; F03.91 Unspecified dementia, unspecified severity, with behavioral disturbance; Z99.81 Dependence on supplemental oxygen; E11.22 Type 2 diabetes mellitus with diabetic chronic kidney disease; E11.65 Type 2 diabetes mellitus with hyperglycemia; N18.9 Chronic kidney disease, unspecified; J43.9 Emphysema, unspecified; I27.29 Other secondary pulmonary hypertension; G47.00 Insomnia, unspecified; L40.9 Psoriasis, unspecified; Z66 Do not resuscitate; Z79.4 Long term (current) use of insulin
CPT/HCPCS: 36415; 36600; 71045; 71275; 80048; 80053; 80076; 81001; 82550; 82728; 82805; 82962; 83036; 83605; 83615; 83735; 83880; 84145; 84484; 85025; 85379; 86140; 87040; 87635; 93005; 93010; 94640; 94762; 96365; 96368; 96375; 99284; 99285; A9270; J0696; J1100; J1630; J1644; J1940; Q9967

== ENCOUNTER → 2020-09-05 06:42 | Outpatient (ROUT) | payer MEDICARE, SELFPAY ==
[2020-08-28 02:00] VITALS: BMI 40.2
[2020-09-05 06:53] LABS: Add Manual Diff / Slide Review NO; Basophils Absolute Auto 100 /uL (0-100); Basophils Percent Auto 1.1 % (0-2); Eosinophils Absolute Auto 400 /uL (0-450); Eosinophils Percent Auto 4.2 % (2-4); Hematocrit 35.9 % (36-46); Hemoglobin 11.3 g/dL (12.0-16.0); Lymphocytes Absolute Auto 1700 /uL (1100-4500); Lymphocytes Percent Auto 20.3 % (25-40); Mean Corpuscular HGB Conc 31.6 % (30-36); Mean Corpuscular Hemoglobin 29.4 PG (26-34); Mean Corpuscular Volume 92.9 fL (80-100); Monocytes Absolute Auto 900 /uL (0-900); Neutrophils Absolute Auto 5400 /uL (1500-7000); Neutrophils Percent Auto 63.4 % (50-75); Platelet Count 209 X10^3/uL (150-400); Red Blood Cell Count 3.86 X10^6/uL (4.0-5.2); Red Cell Distribution Width 15.1 % (11.6-14.8); White Blood Cell Count 8.5 X10^3/uL (4.5-11.0)
[2020-09-05 07:00] LABS: BUN Creatinine Ratio 23.1 (6-22); Blood Urea Nitrogen 25 mg/dL (7-17); Calcium 8.6 mg/dL (8.4-10.2); Chloride 95 mmol/L (98-107); Estimated Glomerular Filt Rate 48.3 mL/min (>60); Glucose 212 mg/dL (80-110); HEMOLYSIS < 15 (0-50); Potassium 4.1 mmol/L (3.4-5.1); Sodium 139 mmol/L (137-145)
[2020-09-05 07:18] LABS: Carbon Dioxide 43 mmol/L (22-32)
== END ==
PROVIDERS: Visit Provider Internal Medicine
DX: U07.1 COVID-19 (principal)
CPT/HCPCS: 36415; 80048; 85025

== ENCOUNTER → 2020-09-19 08:35 | Outpatient (ROUT) | payer MEDICARE, SELFPAY ==
[2020-08-28 02:00] VITALS: BMI 40.2
[2020-09-19 09:03] LABS: Add Manual Diff / Slide Review NO; Basophils Absolute Auto 0 /uL (0-100); Basophils Percent Auto 0.3 % (0-2); Eosinophils Absolute Auto 200 /uL (0-450); Eosinophils Percent Auto 1.7 % (2-4); Hematocrit 36.3 % (36-46); Hemoglobin 11.5 g/dL (12.0-16.0); Lymphocytes Absolute Auto 2500 /uL (1100-4500); Lymphocytes Percent Auto 21.2 % (25-40); Mean Corpuscular HGB Conc 31.5 % (30-36); Mean Corpuscular Hemoglobin 29.2 PG (26-34); Mean Corpuscular Volume 92.6 fL (80-100); Monocytes Absolute Auto 900 /uL (0-900); Neutrophils Absolute Auto 8100 /uL (1500-7000); Neutrophils Percent Auto 68.8 % (50-75); Platelet Count 194 X10^3/uL (150-400); Red Blood Cell Count 3.92 X10^6/uL (4.0-5.2); Red Cell Distribution Width 14.6 % (11.6-14.8); White Blood Cell Count 11.8 X10^3/uL (4.5-11.0)
[2020-09-19 09:50] LABS: BUN Creatinine Ratio 31.9 (6-22); Blood Urea Nitrogen 38 mg/dL (7-17); Calcium 8.8 mg/dL (8.4-10.2); Chloride 96 mmol/L (98-107); Estimated Glomerular Filt Rate 43.1 mL/min (>60); Glucose 188 mg/dL (80-110); HEMOLYSIS < 15 (0-50); Potassium 3.7 mmol/L (3.4-5.1); Sodium 136 mmol/L (137-145)
[2020-09-19 09:58] LABS: Carbon Dioxide 39 mmol/L (22-32)
[2020-09-19 10:00] LABS: Thyroid Stimulating Hormone 1.25 uIU/mL (0.47-4.68)
== END ==
PROVIDERS: Visit Provider Nurse Practitioner Family
DX: E11.00 Type 2 diabetes mellitus with hyperosmolarity without nonketotic hyperglycemic-hyperosmolar coma (NKHHC) (principal); R53.83 Other fatigue
CPT/HCPCS: 36415; 80048; 84443; 85025

== ENCOUNTER 2020-09-27 23:40 | Inpatient (IN) | payer MEDICARE, SELFPAY ==
[2020-08-28 02:00] VITALS: BMI 40.2
[2020-09-27 23:40] VITALS: BP 122/56; PULSE 65; RESP 30; TEMP 37.2; O2SAT 91
--- NOTE | 2020-09-27 23:46 | DI.RAD.S_ITS ---
PROCEDURE: XR CHEST 1V INDICATIONS: weak, SOB, increased O2 demands TECHNIQUE: One view of the chest was acquired. COMPARISON: [facility], CR, XR CHEST 1V, 11/15/2019, 2:38. [facility], CR, ABDOMEN 1 VIEW, 02/04/2016, 11:42. [facility], CR, XR CHEST 1V, 08/27/2020, 21:42. FINDINGS: Surgical changes and devices: None. Worsening consolidations in the retrocardiac left lower lobe. There is also mildly increased patchy consolidative opacity in the right lower lobe. Small left pericardial fat pad incidentally noted. No pleural effusions or pneumothorax. Mediastinum: Mediastinal contours appear normal. Heart size is normal. Bones and chest wall: Bilateral shoulder joint degeneration. IMPRESSION: Worsening bibasilar consolidative opacities as above. Findings concordant with the preliminary study interpretation provided at the time of the exam. Dictated by: Chas Domingo M.D. on 09/28/2020 at 8:12 Approved by: Chas Domingo M.D. on 09/28/2020 at 8:16
--- NOTE | 2020-09-27 23:55 | ED_ITS ---
HPI - Weakness General Chief complaint: Upper Respiratory Symptoms Stated complaint: Mental Status Change Time Seen by Provider: 09/27/20 23:40 Source: patient Mode of arrival: EMS Limitations: no limitations History of Present Illness HPI Narrative: 85-year-old female of COPD, on 2 L by nasal cannula at baseline is limited intervention DNR in presents by EMS for evaluation of a fall due to weakness. She has been feeling weak and a bit out of it over the course of the day and was transferring from the toilet when she fell and hit her head. She is found to be weak, short of breath with increased oxygen requirements up to 5 L, rapid breathing, diaphoresis and a blood pressure in the 90s. She has had no fever chills. She had her COVID vaccination yesterday. She denies any pain. MD Complaint: generalized weakness and lack of energy Onset (ago): minute(s) Duration: constant Location: generalized Severity: moderate Relieving factors: none Exacerbating factors: none Associated symptoms: denies other symptoms Related Data Home Medications Medication Instructions Recorded Confirmed Atrovent HFA 2 puff INHALATION QID PRN 08/28/20 08/28/20 Humira Pen 40 mg SUBCUT Q2W 08/28/20 08/28/20 Spiriva with HandiHaler 1 cap INHALATION DAILY 08/28/20 08/28/20 acetaminophen [Tylenol] 650 mg PO BID 08/28/20 08/28/20 albuterol sulfate 1 inh INHALATION Q4H PRN 08/28/20 08/28/20 albuterol sulfate [ProAir HFA] 1 inh INHALATION PRN PRN 08/28/20 08/28/20 aspirin 81 mg PO DAILY 08/28/20 08/28/20 citalopram 10 mg PO DAILY 08/28/20 08/28/20 dapsone 100 mg PO DAILY 08/28/20 08/28/20 docusate sodium 250 mg PO DAILY PRN 08/28/20 08/28/20 fluticasone propion-salmeterol 1 inh INHALATION Q12H 08/28/20 08/28/20 furosemide 40 mg PO DAILY 08/28/20 08/28/20 insulin lispro [Humalog KwikPen See Rx Instructions .ROUTE .COMPLEX 08/28/20 Insulin] ketoconazole 1 applic TOPICAL BID PRN 08/28/20 08/28/20 ketoconazole 1 applic TOPICAL Q2D 08/28/20 08/28/20 melatonin 3 mg PO BEDTIME 08/28/20 08/28/20 olanzapine 5 mg PO BEDTIME 08/28/20 08/28/20 ondansetron 4 mg PO Q4H PRN 08/28/20 08/28/20 simvastatin 20 mg PO DAILY 08/28/20 08/28/20 Previous Rx's Medication Instructions Recorded Lantus Solostar U-100 Insulin 20 unit SUBCUT QPM #0 ml 08/30/20 Lantus Solostar U-100 Insulin 30 unit SUBCUT QAM #0 ml 08/30/20 cefdinir 300 mg PO BID #4 cap 08/30/20 guaifenesin [Mucus Relief ER] 1,200 mg PO Q12HR PRN #30 tab 08/30/20 Allergies Allergy/AdvReac Type Severity Reaction Status Date / Time gabapentin [GABAPENTIN] Allergy Unknown DIZZINESS Verified 08/28/20 22:39 NSAIDS (Non-Steroidal Allergy Unknown ADVISED TO Verified 08/28/20 22:39 Anti-Inflamma AVOID [NSAIDS (NON-STEROIDAL ANTI-INFLAMMA] Review of Systems Constitutional Constitutional: Denies chills, Denies fatigue, Denies fever(s), Denies frequent falls, Denies lethargy and Reports weakness Eyes Eyes: Denies change in vision, Denies eye discharge, Denies irritation and Denies loss of vision ENT Ears, Nose, Mouth, and Throat: Denies change in voice, Denies dizziness, Denies neck pain, Denies sore throat and Denies throat swelling Cardiovascular Cardiovascular: Denies chest pain, Denies irregular heart rhythm, Denies lightheadedness, Denies palpitations, Reports dyspnea, Denies dyspnea on exertion and Denies orthopnea Respiratory Respiratory: Denies cough, Reports dyspnea, Denies dyspnea on exertion and Denies wheezing Gastrointestinal Gastrointestinal: Denies abdominal pain, Denies change in bowel habits, Denies diarrhea, Denies nausea and Denies vomiting Musculoskeletal Musculoskeletal: Denies neck pain and Denies numbness Integumentary/Breasts Skin/Breast: Denies pruritus, Denies erythema, Denies rash and Denies wounds Neurologic Neurologic: Denies behavioral changes, Denies confusion, Denies dizziness, Denies frequent falls, Denies loss of vision, Denies numbness and Reports weakness Psychiatric Psychiatric: Denies anxiety, Denies behavioral changes, Denies confusion, Denies depression, Denies homicidal ideation and Denies suicidal ideation Endocrine Endocrine: Denies fatigue, Denies flushing and Denies palpitations Hematologic/Lymphatic Hematologic/Lymphatic: Denies easy bruising Allergic/Immunologic Allergic/Immunologic: Denies urticaria, Denies throat swelling and Denies wheezing Patient History Medical History Cerebral microvascular disease COPD (chronic obstructive pulmonary disease) Diabetes Insomnia Psoriasis Social History Smoking Status: Former smoker Smoking Status: Former smoker alcohol intake frequency: 0-2 drinks per day Substance Use Type: does not use Exam Narrative Exam Narrative: GENERAL: [85] year old patient appears stated age. Well- nourished, well-developed patient, in obvious distress, diaphoretic, pale HEAD: Atraumatic. Normocephalic. EYES: Pupils equal round and reactive. Extraocular motions intact. No scleral icterus. No injection or drainage. ENT: Nose without bleeding, purulent drainage. Throat without erythema, tonsillar hypertrophy or exudate. Airway patent. NECK: Trachea midline. Non tender CARDIOVASCULAR: Regular rate and rhythm without murmurs, gallops, or rubs. RESPIRATORY: Decreased breath sounds throughout with increased work of breathing GASTROINTESTINAL: Abdomen soft, non-tender, nondistended. EXTREMITIES: No edema or joint tenderness. BACK: Nontender without deformity or crepitance. No flank tenderness. NEURO: AOx3. SKIN: No rash or erythema of visible areas Initial Vital Signs Initial Vital Signs: Vital Signs Temperature 98.9 F 09/27/20 23:40 Pulse Rate 65 09/27/20 23:40 Respiratory Rate 30 H 09/27/20 23:40 Blood Pressure 122/56 L 09/27/20 23:40 Pulse Oximetry 91 09/27/20 23:40 Course Orders Ordered: ED Orders 09/27/20 23:35 C-Reactive Protein Quant Stat Complete Blood Count AUTO DIFF Stat Comprehensive Metabolic Panel Stat D Dimer Stat Ferritin Stat Magnesium Stat NT-proBNP (BNP-Adult 18+) Stat Partial Thromboplastin Time Stat Procalcitonin Stat Prothrombin Time INR Stat Troponin & CK Cardiac Panel Stat 09/27/20 23:46 XR chest 1V Stat Blood Culture Stat Lactate (Lactic Acid) Stat EKG-12 Lead Stat 09/27/20 23:47 COVID19 Stat 09/28/20 00:10 Lactate Dehydrogenase Stat 09/28/20 01:05 Respiratory Panel (Film Array) Stat 09/28/20 01:09 CT angio chest PE protocol Stat Sodium Chloride (Normal Saline 0.9%) 1,000 mls @ 125 mls/hr IV CONT HEDY Last Admin: 09/28/20 00:15 Dose: 125 mls/hr Documented by: CESAR Discontinued Medications Dexamethasone (Dexamethasone 10 Mg/Ml Vial) 6 mg IV NOW ONE Stop: 09/28/20 00:35 Last Admin: 09/28/20 00:53 Dose: 6 mg Documented by: CESAR Remdesivir 200 mg/ Sodium (Chloride) 250 mls @ 250 mls/hr IV NOW ONE Stop: 09/28/20 00:35 Last Infusion: 09/28/20 02:44 Dose: 0 mls/hr Documented by: Admin: 09/28/20 01:00 Dose: 250 mls/hr Documented by: CESAR Vital Signs Vital signs: Vital Signs - 8 hr 09/27/20 23:40 09/28/20 00:19 09/28/20 00:56 Temperature 98.9 F Pulse Rate 65 59 L 56 L Respiratory Rate 30 H 33 H 31 H Blood Pressure 122/56 L Pulse Oximetry 91 91 09/28/20 01:00 09/28/20 01:18 09/28/20 01:30 Temperature Pulse Rate 56 L 50 L 50 L Respiratory Rate 29 H 28 H 24 Blood Pressure 133/60 Pulse Oximetry 94 92 94 09/28/20 01:47 Temperature Pulse Rate 48 L Respiratory Rate 19 Blood Pressure 124/56 L Pulse Oximetry 95 MDM - Weakness Lab Data Result diagrams: 09/27/20 23:35 09/27/20 23:35 Labs: Lab Results 09/27/20 09/27/20 09/27/20 Range/Units 00:06 23:35 23:35 WBC 17.2 H D (4.5-11.0) X10^3/uL RBC 4.49 (4.0-5.2) X10^6/uL Hgb 13.0 (12.0-16.0) g/dL Hct 42.8 (36-46) % MCV 95.3 (80-100) fL MCH 29.0 (26-34) PG MCHC 30.5 (30-36) % RDW 15.1 H (11.6-14.8) % Plt Count 251 (150-400) X10^3/uL Neut % (Auto) 73.2 (50-75) % Lymph % (Auto) 15.1 L (25-40) % [place] % (Auto) 8.9 (3-14) % Eos % (Auto) 1.5 L (2-4) % Baso % (Auto) 1.3 (0-2) % Neut # (Auto) 51426 H (2451-2148) /uL Lymph # (Auto) 2600 (8109-3474) /uL [place] # (Auto) 1500 H (0-900) /uL Eos # (Auto) 300 (0-450) /uL Baso # (Auto) 200 H (0-100) /uL PT 12.6 (10.1-12.7) SECONDS INR 1.1 (0.9-1.3) APTT 28 (26.4-36.2) SECONDS D-Dimer (<230) ng/mL ABG pH 7.28 L* (7.35-7.45) ABG pCO2 58.4 H (35-45) mmHg ABG pO2 91 (80-100) mmHg ABG HCO3 27 H (22-26) mmol/L ABG Total CO2 29 (21-31) mmol/L ABG O2 Saturation 96 (95-100) % ABG Base Excess 1.0 (-2-2) mmol/L FiO2 36 Sodium (137-145) mmol/L Potassium (3.4-5.1) mmol/L Chloride (98-107) mmol/L Carbon Dioxide (22-32) mmol/L BUN (7-17) mg/dL Creatinine (0.52-1.04) mg/dL Estimated GFR (>60) mL/min BUN/Creatinine Ratio (6-22) Glucose (80-110) mg/dL Lactate (0.7-2.1) mmol/L Calcium (8.4-10.2) mg/dL Magnesium (1.6-2.3) mg/dL Ferritin (11-264) ng/mL Total Bilirubin (0.2-1.3) mg/dL AST (14-36) IU/L ALT (<35) IU/L Alkaline Phosphatase (38-126) U/L Lactate Dehydrogenase (313-618) U/L Total Creatine Kinase (30-135) U/L CK-MB (CK-2) CK-MB (CK-2) Rel Index Troponin I (0.01-0.034) ng/mL C-Reactive Protein (<1.0) mg/dL NT-Pro-B Natriuret Pep (<450) pg/mL Total Protein (6.3-8.2) g/dL Albumin (3.5-5.0) g/dL Globulin (1.7-4.1) g/dL Albumin/Globulin Ratio (1.0-2.8) Procalcitonin (<0.5) ng/mL Chlamy pneumoniae PCR (Not Detect) Adenovirus (PCR) (Not Detect) B.parapertussis DNA PCR (Not Detect) Coronavirus OC43 (PCR) (Not Detect) Coronavirus HKU1 (PCR) (Not Detect) Coronavirus 229E (PCR) (Not Detect) SARS-CoV-2 (PCR) (Negative) Coronavirus NL63 (PCR) (Not Detect) Human Metapneumovir PCR (Not Detect) Influenza Type A (PCR) (Not Detect) Influenza Type B (PCR) (Not Detect) M. pneumoniae (PCR) (Not Detect) Parainfluenza 1 (PCR) (Not Detect) Parainfluenza 2 (PCR) (Not Detect) Parainfluenza 3 (PCR) (Not Detect) Parainfluenza 4 (PCR) (Not Detect) RSV (PCR) (Not Detect) Entero/Rhino (PCR) (Not Detect) 09/27/20 09/27/20 09/27/20 Range/Units 23:35 23:35 23:35 WBC (4.5-11.0) X10^3/uL RBC (4.0-5.2) X10^6/uL Hgb (12.0-16.0) g/dL Hct (36-46) % MCV (80-100) fL MCH (26-34) PG MCHC (30-36) % RDW (11.6-14.8) % Plt Count (150-400) X10^3/uL Neut % (Auto) (50-75) % Lymph % (Auto) (25-40) % [place] % (Auto) (3-14) % Eos % (Auto) (2-4) % Baso % (Auto) (0-2) % Neut # (Auto) (3091-1594) /uL Lymph # (Auto) (9859-9401) /uL [place] # (Auto) (0-900) /uL Eos # (Auto) (0-450) /uL Baso # (Auto) (0-100) /uL PT (10.1-12.7) SECONDS INR (0.9-1.3) APTT (26.4-36.2) SECONDS D-Dimer 926 H (<230) ng/mL ABG pH (7.35-7.45) ABG pCO2 (35-45) mmHg ABG pO2 (80-100) mmHg ABG HCO3 (22-26) mmol/L ABG Total CO2 (21-31) mmol/L ABG O2 Saturation (95-100) % ABG Base Excess (-2-2) mmol/L FiO2 Sodium 140 (137-145) mmol/L Potassium 4.3 (3.4-5.1) mmol/L Chloride 97 L (98-107) mmol/L Carbon Dioxide 26 (22-32) mmol/L BUN 36 H (7-17) mg/dL Creatinine 1.49 H (0.52-1.04) mg/dL Estimated GFR 33.3 L (>60) mL/min BUN/Creatinine Ratio 24.2 H (6-22) Glucose 266 H (80-110) mg/dL Lactate (0.7-2.1) mmol/L Calcium 9.4 (8.4-10.2) mg/dL Magnesium 2.1 (1.6-2.3) mg/dL Ferritin 67 (11-264) ng/mL Total Bilirubin 0.7 (0.2-1.3) mg/dL AST 33 (14-36) IU/L ALT 35 H (<35) IU/L Alkaline Phosphatase 38 (38-126) U/L Lactate Dehydrogenase (313-618) U/L Total Creatine Kinase 59 (30-135) U/L CK-MB (CK-2) TNP CK-MB (CK-2) Rel Index TNP Troponin I 0.028 (0.01-0.034) ng/mL C-Reactive Protein 2.0 H (<1.0) mg/dL NT-Pro-B Natriuret Pep 763 H (<450) pg/mL Total Protein 8.0 (6.3-8.2) g/dL Albumin 4.3 (3.5-5.0) g/dL Globulin 3.7 (1.7-4.1) g/dL Albumin/Globulin Ratio 1.2 (1.0-2.8) Procalcitonin 0.16 (<0.5) ng/mL Chlamy pneumoniae PCR (Not Detect) Adenovirus (PCR) (Not Detect) B.parapertussis DNA PCR (Not Detect) Coronavirus OC43 (PCR) (Not Detect) Coronavirus HKU1 (PCR) (Not Detect) Coronavirus 229E (PCR) (Not Detect) SARS-CoV-2 (PCR) (Negative) Coronavirus NL63 (PCR) (Not Detect) Human Metapneumovir PCR (Not Detect) Influenza Type A (PCR) (Not Detect) Influenza Type B (PCR) (Not Detect) M. pneumoniae (PCR) (Not Detect) Parainfluenza 1 (PCR) (Not Detect) Parainfluenza 2 (PCR) (Not Detect) Parainfluenza 3 (PCR) (Not Detect) Parainfluenza 4 (PCR) (Not Detect) RSV (PCR) (Not Detect) Entero/Rhino (PCR) (Not Detect) 09/27/20 09/28/20 09/28/20 Range/Units 23:47 00:10 00:10 WBC (4.5-11.0) X10^3/uL RBC (4.0-5.2) X10^6/uL Hgb (12.0-16.0) g/dL Hct (36-46) % MCV (80-100) fL MCH (26-34) PG MCHC (30-36) % RDW (11.6-14.8) % Plt Count (150-400) X10^3/uL Neut % (Auto) (50-75) % Lymph % (Auto) (25-40) % [place] % (Auto) (3-14) % Eos % (Auto) (2-4) % Baso % (Auto) (0-2) % Neut # (Auto) (7217-7067) /uL Lymph # (Auto) (6883-0181) /uL [place] # (Auto) (0-900) /uL Eos # (Auto) (0-450) /uL Baso # (Auto) (0-100) /uL PT (10.1-12.7) SECONDS INR (0.9-1.3) APTT (26.4-36.2) SECONDS D-Dimer (<230) ng/mL ABG pH (7.35-7.45) ABG pCO2 (35-45) mmHg ABG pO2 (80-100) mmHg ABG HCO3 (22-26) mmol/L ABG Total CO2 (21-31) mmol/L ABG O2 Saturation (95-100) % ABG Base Excess (-2-2) mmol/L FiO2 Sodium (137-145) mmol/L Potassium (3.4-5.1) mmol/L Chloride (98-107) mmol/L Carbon Dioxide (22-32) mmol/L BUN (7-17) mg/dL Creatinine (0.52-1.04) mg/dL Estimated GFR (>60) mL/min BUN/Creatinine Ratio (6-22) Glucose (80-110) mg/dL Lactate 6.6 H* (0.7-2.1) mmol/L Calcium (8.4-10.2) mg/dL Magnesium (1.6-2.3) mg/dL Ferritin (11-264) ng/mL Total Bilirubin (0.2-1.3) mg/dL AST (14-36) IU/L ALT (<35) IU/L Alkaline Phosphatase (38-126) U/L Lactate Dehydrogenase 434 (313-618) U/L Total Creatine Kinase (30-135) U/L CK-MB (CK-2) CK-MB (CK-2) Rel Index Troponin I (0.01-0.034) ng/mL C-Reactive Protein (<1.0) mg/dL NT-Pro-B Natriuret Pep (<450) pg/mL Total Protein (6.3-8.2) g/dL Albumin (3.5-5.0) g/dL Globulin (1.7-4.1) g/dL Albumin/Globulin Ratio (1.0-2.8) Procalcitonin (<0.5) ng/mL Chlamy pneumoniae PCR (Not Detect) Adenovirus (PCR) (Not Detect) B.parapertussis DNA PCR (Not Detect) Coronavirus OC43 (PCR) (Not Detect) Coronavirus HKU1 (PCR) (Not Detect) Coronavirus 229E (PCR) (Not Detect) SARS-CoV-2 (PCR) Positive H (Negative) Coronavirus NL63 (PCR) (Not Detect) Human Metapneumovir PCR (Not Detect) Influenza Type A (PCR) (Not Detect) Influenza Type B (PCR) (Not Detect) M. pneumoniae (PCR) (Not Detect) Parainfluenza 1 (PCR) (Not Detect) Parainfluenza 2 (PCR) (Not Detect) Parainfluenza 3 (PCR) (Not Detect) Parainfluenza 4 (PCR) (Not Detect) RSV (PCR) (Not Detect) Entero/Rhino (PCR) (Not Detect) 09/28/20 Range/Units 01:05 WBC (4.5-11.0) X10^3/uL RBC (4.0-5.2) X10^6/uL Hgb (12.0-16.0) g/dL Hct (36-46) % MCV (80-100) fL MCH (26-34) PG MCHC (30-36) % RDW (11.6-14.8) % Plt Count (150-400) X10^3/uL Neut % (Auto) (50-75) % Lymph % (Auto) (25-40) % [place] % (Auto) (3-14) % Eos % (Auto) (2-4) % Baso % (Auto) (0-2) % Neut # (Auto) (5093-9617) /uL Lymph # (Auto) (7876-6569) /uL [place] # (Auto) (0-900) /uL Eos # (Auto) (0-450) /uL Baso # (Auto) (0-100) /uL PT (10.1-12.7) SECONDS INR (0.9-1.3) APTT (26.4-36.2) SECONDS D-Dimer (<230) ng/mL ABG pH (7.35-7.45) ABG pCO2 (35-45) mmHg ABG pO2 (80-100) mmHg ABG HCO3 (22-26) mmol/L ABG Total CO2 (21-31) mmol/L ABG O2 Saturation (95-100) % ABG Base Excess (-2-2) mmol/L FiO2 Sodium (137-145) mmol/L Potassium (3.4-5.1) mmol/L Chloride (98-107) mmol/L Carbon Dioxide (22-32) mmol/L BUN (7-17) mg/dL Creatinine (0.52-1.04) mg/dL Estimated GFR (>60) mL/min BUN/Creatinine Ratio (6-22) Glucose (80-110) mg/dL Lactate (0.7-2.1) mmol/L Calcium (8.4-10.2) mg/dL Magnesium (1.6-2.3) mg/dL Ferritin (11-264) ng/mL Total Bilirubin (0.2-1.3) mg/dL AST (14-36) IU/L ALT (<35) IU/L Alkaline Phosphatase (38-126) U/L Lactate Dehydrogenase (313-618) U/L Total Creatine Kinase (30-135) U/L CK-MB (CK-2) CK-MB (CK-2) Rel Index Troponin I (0.01-0.034) ng/mL C-Reactive Protein (<1.0) mg/dL NT-Pro-B Natriuret Pep (<450) pg/mL Total Protein (6.3-8.2) g/dL Albumin (3.5-5.0) g/dL Globulin (1.7-4.1) g/dL Albumin/Globulin Ratio (1.0-2.8) Procalcitonin (<0.5) ng/mL Chlamy pneumoniae PCR Not detected (Not Detect) Adenovirus (PCR) Not detected (Not Detect) B.parapertussis DNA PCR Not detected (Not Detect) Coronavirus OC43 (PCR) Not detected (Not Detect) Coronavirus HKU1 (PCR) Not detected (Not Detect) Coronavirus 229E (PCR) Not detected (Not Detect) SARS-CoV-2 (PCR) Detected H (Negative) Coronavirus NL63 (PCR) Not detected (Not Detect) Human Metapneumovir PCR Not detected (Not Detect) Influenza Type A (PCR) Not detected (Not Detect) Influenza Type B (PCR) Not detected (Not Detect) M. pneumoniae (PCR) Not detected (Not Detect) Parainfluenza 1 (PCR) Not detected (Not Detect) Parainfluenza 2 (PCR) Not detected (Not Detect) Parainfluenza 3 (PCR) Not detected (Not Detect) Parainfluenza 4 (PCR) Not detected (Not Detect) RSV (PCR) Not detected (Not Detect) Entero/Rhino (PCR) Not detected (Not Detect) Imaging Data CT scan - chest: Radiologist Impression: No PE. Mild left greater than right basilar dependent atelectasis. Atypical pneumonia less likely. MDM Narrative Medical decision making narrative: Patient with increased oxygen demand and respiratory distress. COVID is positive, however she was also positive one month ago. She is a chronic CO2 retainer, but today's ABG finds her to be in an uncompensated respiratory acidosis. COVID certiainly considered as a primary cause of her respiratory failure, but utility of repeat test is uncertain, furthermore some of the peripheral tests such as LDH and ferritin are unremarkable. Today's DDimer has risen to over 900, CTA ordered to rule out PE as her true COVID status is unclear. Patient requires hospitalization to further evaluate and treat her respiratory failure Discharge Plan Departure Patient Disposition: Admitted As Inpatient Clinical Impression: COVID-19, Hypoxia
[2020-09-28] VITALS (34 sets, daily range): BP systolic 120–138; BP diastolic 56–65; PULSE 40–71; RESP 16–42; TEMP 36.3–37.1; O2SAT 89–95; BMI 42.5
[2020-09-28 00:08] LABS: INR 1.1 (0.9-1.3); Prothrombin Time 12.6 SECONDS (10.1-12.7)
[2020-09-28 00:10] LABS: PTT Partial Thromboplastin Tim 28 SECONDS (26.4-36.2)
[2020-09-28 00:11] LABS: Add Manual Diff / Slide Review NO; Basophils Absolute Auto 200 /uL (0-100); Basophils Percent Auto 1.3 % (0-2); Eosinophils Absolute Auto 300 /uL (0-450); Eosinophils Percent Auto 1.5 % (2-4); Hematocrit 42.8 % (36-46); Lymphocytes Absolute Auto 2600 /uL (1100-4500); Lymphocytes Percent Auto 15.1 % (25-40); Mean Corpuscular HGB Conc 30.5 % (30-36); Mean Corpuscular Volume 95.3 fL (80-100); Monocytes Absolute Auto 1500 /uL (0-900); Monocytes Percent Auto 8.9 % (3-14); Neutrophils Absolute Auto 12600 /uL (1500-7000); Neutrophils Percent Auto 73.2 % (50-75); Platelet Count 251 X10^3/uL (150-400); Red Blood Cell Count 4.49 X10^6/uL (4.0-5.2); Red Cell Distribution Width 15.1 % (11.6-14.8); White Blood Cell Count 17.2 X10^3/uL (4.5-11.0)
[2020-09-28] MEDS: SODIUM CHLORIDE 0.9% 1,000 ML 125 ML IV (00:15)
[2020-09-28 00:19] LABS: Albumin 4.3 g/dL (3.5-5.0); Albumin Globulin Ratio 1.2 (1.0-2.8); Alkaline Phosphatase 38 U/L (38-126); Aspartate Aminotransferase 33 IU/L (14-36); BUN Creatinine Ratio 24.2 (6-22); Bilirubin Total 0.7 mg/dL (0.2-1.3); Blood Urea Nitrogen 36 mg/dL (7-17); Calcium 9.4 mg/dL (8.4-10.2); Carbon Dioxide 26 mmol/L (22-32); Chloride 97 mmol/L (98-107); Creatine Kinase 59 U/L (30-135); Estimated Glomerular Filt Rate 33.3 mL/min (>60); Globulin 3.7 g/dL (1.7-4.1); Glucose 266 mg/dL (80-110); HEMOLYSIS < 15 (0-50); Magnesium 2.1 mg/dL (1.6-2.3); Potassium 4.3 mmol/L (3.4-5.1); Sodium 140 mmol/L (137-145)
[2020-09-28 00:23] LABS: Alanine Aminotransferase 35 IU/L (<35)
[2020-09-28 00:30] LABS: NT-proBNP (BNP-Adult 18+) 763 pg/mL (<450); Troponin I 0.028 ng/mL (0.01-0.034)
[2020-09-28 00:30] LABS: Fractionated Inspired Oxygen 36; HCO3 ABG 27 mmol/L (22-26); Oxygen Saturation ABG 96 % (95-100); PCO2 ABG 58.4 mmHg (35-45); PO2 ABG 91 mmHg (80-100); TCO2 ABG 29 mmol/L (21-31)
[2020-09-28 00:31] LABS: pH ABG 7.28 (7.35-7.45)
[2020-09-28 00:35] LABS: COVID19 -Nasal RAPID POSITIVE (Negative)
[2020-09-28 00:45] LABS: Procalcitonin 0.16 ng/mL (<0.5)
[2020-09-28 00:49] LABS: D Dimer 926 ng/mL (<230)
[2020-09-28 00:50] LABS: Lactate Dehydrogenase 434 U/L (313-618)
[2020-09-28 00:51] LABS: Ferritin 67 ng/mL (11-264)
[2020-09-28] MEDS: DEXAMETHASONE 10 MG/ML VIAL 6 MG IV (00:53)
[2020-09-28] MEDS: REMDESIVIR 200 MG in SODIUM CHLORIDE 0.9% 210 ML 250 ML IV (01:00)
--- NOTE | 2020-09-28 01:09 | DI.CT.S_ITS ---
PROCEDURE: CT ANGIO CHEST PE PROTOCOL INDICATIONS: SHORTNESS OF BREATH, hypoxia, elevated Dimer TECHNIQUE: After the administration of intravenous contrast, 2 mm thick sections acquired from the pulmonary apices to the posterior costophrenic angles. 3-dimensional maximum intensity projection (MIP) coronal and sagittal reformats were then acquired through the thorax. For radiation dose reduction, the following was used: automated exposure control, adjustment of mA and/or kV according to patient size. COMPARISON: [facility], CT, CT ANGIO CHEST PE PROTOCOL, 08/27/2020, 23:48. FINDINGS: Image quality: Excellent. Pulmonary arteries: Pulmonary arteries are normal in size, and demonstrate no intraluminal filling defects to suggest central pulmonary embolism. Posterior lower lobe ill-defined and nodular consolidative opacities, which are probably unchanged. There also opacities along the left fissure No pleural effusions or pneumothorax. Central and peripheral airways are patent. Mediastinum: Heart size is enlarged, without pericardial effusion. Coronary artery calcifications are present. No mediastinal or hilar adenopathy. Thoracic aorta is normal in caliber and enhancement. Esophagus is normal in caliber, without hiatal hernia. Bones and chest wall: No suspicious bony lesions. Ribs and thoracic spine appear intact throughout. Thyroid is grossly unremarkable No axillary or supraclavicular adenopathy. Abdomen: Right renal atrophy, partially visualized. Subcentimeter renal foci, statistically cysts, although technically too small to characterize accurately and therefore nonspecific. IMPRESSION: No evidence of pulmonary embolism. No aortic dissection identified. Bibasilar and left fissural presumed dependent atelectasis versus aspiration. Atypical pneumonia in the differential although thought to be less likely Additional chronic and incidental findings as above. Findings concordant with the preliminary study interpretation provided at the time of the exam. Dictated by: Chas Domingo M.D. on 09/28/2020 at 8:25 Approved by: Chas Domingo M.D. on 09/28/2020 at 8:42
[2020-09-28 01:13] LABS: Lactate (Lactic Acid) 6.6 mmol/L (0.7-2.1)
[2020-09-28 02:22] LABS: Reflexed Lactate in 2 Hours Y
[2020-09-28 02:50] LABS: Adenovirus Not Detected (Not Detect)
[2020-09-28 02:51] LABS: Bordetella pertussis Not Detected (Not Detect); Chlamydophila pneumoniae Not Detected (Not Detect); Coronavirus 229E Not Detected (Not Detect); Coronavirus HKU1 Not Detected (Not Detect); Coronavirus NL 63 Not Detected (Not Detect); Coronavirus OC43 Not Detected (Not Detect); Human Metapneumovirus Not Detected (Not Detect); Human Rhinovirus/Enterovirus Not Detected (Not Detect); Influenza A Not Detected (Not Detect); Influenza B Not Detected (Not Detect); Mycoplasma pneumoniae Not Detected (Not Detect); Parainfluenza Virus 1 Not Detected (Not Detect); Parainfluenza Virus 2 Not Detected (Not Detect); Parainfluenza Virus 3 Not Detected (Not Detect); Parainfluenza Virus 4 Not Detected (Not Detect); Respiratory Syncytial Virus Not Detected (Not Detect); SARS- CoV-2 Detected (Not Detecte)
[2020-09-28 03:20] LABS: Lactate 2HR (Lactic Acid Rflx) 2.4 mmol/L (0.7-2.1)
--- NOTE | 2020-09-28 04:01 | PM.HP.1 ---
History of Present Illness History of Present Illness Date Patient Seen: 09/28/20 Time Patient Seen: 04:20 Chief complaint: Mental Status Change Narrative: Ms. Chana Stock is an 84-year-old female with a past medical history significant for COPD on continuous oxygen therapy 2-4 L, diabetes type 2, dementia, insomnia and psoriasis who presents to the ER from [facility] following ground level fall and and was unable to get up. The patient is on chronic home O2 at 2-4 L and describes more shortness of breath than usual generalized weakness. Upon upon arrival of EMS O2 is titrated up to 5 L to maintain adequate saturation to 90%. Patient does not recall the circumstances of her fall however did strike her head has an abrasion on her forehead and abrasions and redness to bilateral knees. Of note the patient did receive her COVID-19 vaccination yesterday. The patient is alert and communicative with impaired recall which is reportedly her functional baseline. She denies complaints of fevers or chills, head pain or headache. She states today she is been more weak than usual. She denies chest pain or palpitations describes a hard time breathing but denies cough. She reports no abdominal pain, nausea vomiting, constipation diarrhea. Upon arrival to the ER the patient has a temperature 98.9, heart rate of 65, blood pressure 122/56, respiratory rate of 30 saturating 91% on 4 L. chest x-ray reveals in her stitch will prominence with faint bilateral opacities. A CT angiograms is obtained and is negative for pulmonary embolism slight pericardial effusion, cardiomegaly, elevated left lung base with mild left greater than right basilar dependent ill-defined densities central lobar emphysema with slight scarring no other consolidations pleural effusions or pneumothorax. Twelve lead EKG is obtained finding a junctional rhythm at a rate of [address] or T-wave changes, no evidence of infarct. Arterial blood gas obtained finding a pH of 7.28, pCO2 58.4, PO2 91, HC03 27 and base excess 1 on 36% FiO2. Initial labs reveal an elevated white count at 17.2 with elevated neutrophils at 12,600 and normal lymphocyte count at 2600 and elevated monocytes at 1500. She has a hemoglobin of 13 with hematocrit of 42.8. Her platelets are 251. PT is 12.6, INR 1.1 and PTT is 28. Patient has elevated D-dimer of 926 (elevated when corrected for age). Electrolytes are within normal limits with a BUN of 36 and a creatinine of 1.49. Nonfasting glucose is 266. Liver functions are all within normal limits. On upon arrival patient had lactic acid of 6.6 improved to 2.4 following hydration, procalcitonin is 0.16.. CRP is 2.0 Ferritin level is 9.4, LDH is 434, total CK is 59, troponin is 0.028, proBNP is 763. COVID screening is positive. In the ER the patient received Decadron 6 mg and remdesivir 200 mg loading dose. The patient is admitted to the hospital for acute multifactorial hypoxic and hypercarbic respiratory failure. Patient History Medical History (Updated 09/28/20 @ 04:57 by KAROLINE Reed) Cerebral microvascular disease COPD (chronic obstructive pulmonary disease) COVID-19 Dementia Diabetes Insomnia Peripheral neuropathy Psoriasis Venous stasis of both lower extremities Surgical History (Updated 09/28/20 @ 04:50 by KAROLINE Reed) Surgical history unknown Family & Social History Family history unavailable: No (The patient is unable to report family or social history.) Safety & Behavioral: Feels Safe in Current Yes Environment Tobacco & Substance use: Tobacco type cigarettes Smoking Status Former smoker alcohol intake frequency 0-2 drinks per day Substance Use Type does not use Meds Home Medications and Allergies Home Medications Medication Instructions Recorded Confirmed Type Atrovent HFA 2 puff INHALATION QID PRN 08/28/20 08/28/20 History Humira Pen 40 mg SUBCUT Q2W 08/28/20 08/28/20 History Spiriva with HandiHaler 1 cap INHALATION DAILY 08/28/20 08/28/20 History acetaminophen [Tylenol] 650 mg PO BID 08/28/20 08/28/20 History albuterol sulfate 1 inh INHALATION Q4H PRN 08/28/20 08/28/20 History albuterol sulfate [ProAir HFA] 1 inh INHALATION PRN PRN 08/28/20 08/28/20 History aspirin 81 mg PO DAILY 08/28/20 08/28/20 History citalopram 10 mg PO DAILY 08/28/20 08/28/20 History dapsone 100 mg PO DAILY 08/28/20 08/28/20 History docusate sodium 250 mg PO DAILY PRN 08/28/20 08/28/20 History fluticasone propion-salmeterol 1 inh INHALATION Q12H 08/28/20 08/28/20 History furosemide 40 mg PO DAILY 08/28/20 08/28/20 History insulin lispro [Humalog KwikPen See Rx Instructions .ROUTE .COMPLEX 08/28/20 08/28/20 History Insulin] ketoconazole 1 applic TOPICAL BID PRN 08/28/20 08/28/20 History ketoconazole 1 applic TOPICAL Q2D 08/28/20 08/28/20 History melatonin 3 mg PO BEDTIME 08/28/20 08/28/20 History olanzapine 5 mg PO BEDTIME 08/28/20 08/28/20 History ondansetron 4 mg PO Q4H PRN 08/28/20 08/28/20 History simvastatin 20 mg PO DAILY 08/28/20 08/28/20 History Lantus Solostar U-100 Insulin 20 unit SUBCUT QPM #0 ml 08/30/20 08/28/20 Rx Lantus Solostar U-100 Insulin 30 unit SUBCUT QAM #0 ml 08/30/20 08/28/20 Rx cefdinir 300 mg PO BID #4 cap 08/30/20 Rx guaifenesin [Mucus Relief ER] 1,200 mg PO Q12HR PRN #30 tab 08/30/20 Rx Allergies Allergy/AdvReac Type Severity Reaction Status Date / Time gabapentin [GABAPENTIN] Allergy Unknown DIZZINESS Verified 08/28/20 22:39 NSAIDS (Non-Steroidal Allergy Unknown ADVISED TO Verified 08/28/20 22:39 Anti-Inflamma AVOID [NSAIDS (NON-STEROIDAL ANTI-INFLAMMA] Review of Systems Review of Systems ROS: Yes All systems reviewed with the patient and are negative except as otherwise documented Exam Vital Signs (past 8 hours): - 09/27/20 23:40 09/28/20 00:19 09/28/20 00:56 Temperature 98.9 F Pulse Rate 65 59 L 56 L Respiratory Rate 30 H 33 H 31 H Blood Pressure 122/56 L Pulse Oximetry 91 91 09/28/20 01:00 09/28/20 01:18 09/28/20 01:30 Temperature Pulse Rate 56 L 50 L 50 L Respiratory Rate 29 H 28 H 24 Blood Pressure 133/60 Pulse Oximetry 94 92 94 09/28/20 01:47 09/28/20 02:00 09/28/20 02:30 Temperature Pulse Rate 48 L 47 L 47 L Respiratory Rate 19 21 21 Blood Pressure 124/56 L 125/61 Pulse Oximetry 95 93 94 09/28/20 02:31 09/28/20 03:00 09/28/20 03:30 Temperature Pulse Rate 46 L 45 L 48 L Respiratory Rate 22 23 23 Blood Pressure 133/63 Pulse Oximetry 93 94 94 09/28/20 03:31 Temperature Pulse Rate 47 L Respiratory Rate 23 Blood Pressure 138/65 Pulse Oximetry 93 Oxygen Delivery Method Nasal Cannula Oxygen Flow Rate 4 Narrative Exam Narrative: GENERAL APPEARANCE: well developed, morbidly obese female who is chronically ill-appearing with mild shortness of breath on nasal cannula oxygen HEENT: Abrasion right forehead, nontender to palpation, PERRLA, conjunctiva clear, sclera anicteric, vision tracts bilaterally, no rhinorrhea, mucous membranes are moist and pink without lesions or exudate. NECK/THYROID: nontender to palpation, no step-offs, no JVD, no thyromegaly, trachea midline. LYMPH NODES: no cervical or supraclavicular lymphadenopathy. SKIN: Pale, thin, warm and dry, small areas ecchymosis bilateral arms contusion/abrasion bilateral knees skin, nd dry scaly feet HEART: Bradycardic rate with regular rhythm, S1-S2, no murmur, no rubs or gallops, palpable dorsalis pedis pulses, trace bilateral pedal edema LUNGS: Breath sounds with central rhonchi and diminished bases bilaterally with crackles, no cough present CHEST: Symmetrical movement, no accessory muscle use, shallow tidal volume ABDOMEN: Soft, protuberant, nontender, no organomegaly the exam is limited by body habitus, no flank or suprapubic tenderness, active bowel tones. EXTREMITIES: Decreased range of motion, strength is 4/5 and symmetrical, no deformities or joint effusions, clubbing present. NEUROLOGIC: AAO x person only, difficulty following multistep commands, no lateralizing symptoms and cranial nerves grossly intact, sensation intact to light touch, hearing grossly normal to speech. PSYCH: Patient appears anxious for remains cooperative with stable behavior Objective Labs Result Diagrams: 09/27/20 23:35 09/27/20 23:35 Labs: Laboratory Results - last 24 hr 09/27/20 09/27/20 09/27/20 00:06 23:35 23:35 WBC 17.2 H D RBC 4.49 Hgb 13.0 Hct 42.8 MCV 95.3 MCH 29.0 MCHC 30.5 RDW 15.1 H Plt Count 251 Neut % (Auto) 73.2 Lymph % (Auto) 15.1 L [place] % (Auto) 8.9 Eos % (Auto) 1.5 L Baso % (Auto) 1.3 Neut # (Auto) 42411 H Lymph # (Auto) 2600 [place] # (Auto) 1500 H Eos # (Auto) 300 Baso # (Auto) 200 H PT 12.6 INR 1.1 APTT 28 D-Dimer ABG pH 7.28 L* ABG pCO2 58.4 H ABG pO2 91 ABG HCO3 27 H ABG Total CO2 29 ABG O2 Saturation 96 ABG Base Excess 1.0 FiO2 36 Sodium Potassium Chloride Carbon Dioxide BUN Creatinine Estimated GFR BUN/Creatinine Ratio Glucose Lactate Calcium Magnesium Ferritin Total Bilirubin AST ALT Alkaline Phosphatase Lactate Dehydrogenase Total Creatine Kinase CK-MB (CK-2) CK-MB (CK-2) Rel Index Troponin I C-Reactive Protein NT-Pro-B Natriuret Pep Total Protein Albumin Globulin Albumin/Globulin Ratio Procalcitonin Chlamy pneumoniae PCR Adenovirus (PCR) B.parapertussis DNA PCR Coronavirus OC43 (PCR) Coronavirus HKU1 (PCR) Coronavirus 229E (PCR) SARS-CoV-2 (PCR) Coronavirus NL63 (PCR) Human Metapneumovir PCR Influenza Type A (PCR) Influenza Type B (PCR) M. pneumoniae (PCR) Parainfluenza 1 (PCR) Parainfluenza 2 (PCR) Parainfluenza 3 (PCR) Parainfluenza 4 (PCR) RSV (PCR) Entero/Rhino (PCR) 09/27/20 09/27/20 09/27/20 23:35 23:35 23:35 WBC RBC Hgb Hct MCV MCH MCHC RDW Plt Count Neut % (Auto) Lymph % (Auto) [place] % (Auto) Eos % (Auto) Baso % (Auto) Neut # (Auto) Lymph # (Auto) [place] # (Auto) Eos # (Auto) Baso # (Auto) PT INR APTT D-Dimer 926 H ABG pH ABG pCO2 ABG pO2 ABG HCO3 ABG Total CO2 ABG O2 Saturation ABG Base Excess FiO2 Sodium 140 Potassium 4.3 Chloride 97 L Carbon Dioxide 26 BUN 36 H Creatinine 1.49 H Estimated GFR 33.3 L BUN/Creatinine Ratio 24.2 H Glucose 266 H Lactate Calcium 9.4 Magnesium 2.1 Ferritin 67 Total Bilirubin 0.7 AST 33 ALT 35 H Alkaline Phosphatase 38 Lactate Dehydrogenase Total Creatine Kinase 59 CK-MB (CK-2) TNP CK-MB (CK-2) Rel Index TNP Troponin I 0.028 C-Reactive Protein 2.0 H NT-Pro-B Natriuret Pep 763 H Total Protein 8.0 Albumin 4.3 Globulin 3.7 Albumin/Globulin Ratio 1.2 Procalcitonin 0.16 Chlamy pneumoniae PCR Adenovirus (PCR) B.parapertussis DNA PCR Coronavirus OC43 (PCR) Coronavirus HKU1 (PCR) Coronavirus 229E (PCR) SARS-CoV-2 (PCR) Coronavirus NL63 (PCR) Human Metapneumovir PCR Influenza Type A (PCR) Influenza Type B (PCR) M. pneumoniae (PCR) Parainfluenza 1 (PCR) Parainfluenza 2 (PCR) Parainfluenza 3 (PCR) Parainfluenza 4 (PCR) RSV (PCR) Entero/Rhino (PCR) 09/27/20 09/28/20 09/28/20 23:47 00:10 00:10 WBC RBC Hgb Hct MCV MCH MCHC RDW Plt Count Neut % (Auto) Lymph % (Auto) [place] % (Auto) Eos % (Auto) Baso % (Auto) Neut # (Auto) Lymph # (Auto) [place] # (Auto) Eos # (Auto) Baso # (Auto) PT INR APTT D-Dimer ABG pH ABG pCO2 ABG pO2 ABG HCO3 ABG Total CO2 ABG O2 Saturation ABG Base Excess FiO2 Sodium Potassium Chloride Carbon Dioxide BUN Creatinine Estimated GFR BUN/Creatinine Ratio Glucose Lactate 6.6 H* Calcium Magnesium Ferritin Total Bilirubin AST ALT Alkaline Phosphatase Lactate Dehydrogenase 434 Total Creatine Kinase CK-MB (CK-2) CK-MB (CK-2) Rel Index Troponin I C-Reactive Protein NT-Pro-B Natriuret Pep Total Protein Albumin Globulin Albumin/Globulin Ratio Procalcitonin Chlamy pneumoniae PCR Adenovirus (PCR) B.parapertussis DNA PCR Coronavirus OC43 (PCR) Coronavirus HKU1 (PCR) Coronavirus 229E (PCR) SARS-CoV-2 (PCR) Positive H Coronavirus NL63 (PCR) Human Metapneumovir PCR Influenza Type A (PCR) Influenza Type B (PCR) M. pneumoniae (PCR) Parainfluenza 1 (PCR) Parainfluenza 2 (PCR) Parainfluenza 3 (PCR) Parainfluenza 4 (PCR) RSV (PCR) Entero/Rhino (PCR) 09/28/20 09/28/20 01:05 02:45 WBC RBC Hgb Hct MCV MCH MCHC RDW Plt Count Neut % (Auto) Lymph % (Auto) [place] % (Auto) Eos % (Auto) Baso % (Auto) Neut # (Auto) Lymph # (Auto) [place] # (Auto) Eos # (Auto) Baso # (Auto) PT INR APTT D-Dimer ABG pH ABG pCO2 ABG pO2 ABG HCO3 ABG Total CO2 ABG O2 Saturation ABG Base Excess FiO2 Sodium Potassium Chloride Carbon Dioxide BUN Creatinine Estimated GFR BUN/Creatinine Ratio Glucose Lactate 2.4 H Calcium Magnesium Ferritin Total Bilirubin AST ALT Alkaline Phosphatase Lactate Dehydrogenase Total Creatine Kinase CK-MB (CK-2) CK-MB (CK-2) Rel Index Troponin I C-Reactive Protein NT-Pro-B Natriuret Pep Total Protein Albumin Globulin Albumin/Globulin Ratio Procalcitonin Chlamy pneumoniae PCR Not detected Adenovirus (PCR) Not detected B.parapertussis DNA PCR Not detected Coronavirus OC43 (PCR) Not detected Coronavirus HKU1 (PCR) Not detected Coronavirus 229E (PCR) Not detected SARS-CoV-2 (PCR) Detected H Coronavirus NL63 (PCR) Not detected Human Metapneumovir PCR Not detected Influenza Type A (PCR) Not detected Influenza Type B (PCR) Not detected M. pneumoniae (PCR) Not detected Parainfluenza 1 (PCR) Not detected Parainfluenza 2 (PCR) Not detected Parainfluenza 3 (PCR) Not detected Parainfluenza 4 (PCR) Not detected RSV (PCR) Not detected Entero/Rhino (PCR) Not detected Assessment & Plan Assessment & Plan narrative: This is an 85-year-old female patient presents to the ER following a fall at [facility] and is unable to get up. The patient is found to be dyspneic P under baseline with generalized weakness. 1. Acute on chronic hypoxemic and hypercarbic respiratory failure, present on admission. Acute. -patient with uncompensated respiratory acidosis with pH of 7.28, pCO2 58.4, O2 91, bicarb 27 with a base excess 1 on 36% FiO2. P/F ratio is calculated at 252. -patient with mild increased work of breathing requiring additional oxygen beyond her baseline 2 L at her care center. -decompensation likely multifactorial: Bacterial infection-pneumonia elevated white count at 17.2, with increased absolute neutrophils at 12,600 and procalcitonin 0.16, lactate of initial 6.6. COPD exacerbation-long history of emphysema on home O2 at 2 liters/minute. Congestive heart failure-patient with elevated BNP at 763 and bibasilar crackles on auscultation. Possible adverse reaction to COVID-19 vaccination received yesterday. -patient is in no acute distress will continue nasal cannula oxygen and titrate to O2 saturation of 88 to 92%. -will address potential etiologies as below. -requested respiratory therapy to consult evaluate treat. 2. Probable bacterial pneumonia, community-acquired, present on admission, active. -patient has an elevated white count at 17. Two with increased neutrophils of 12,600. Procalcitonin is is 0.16 -chest x-ray identifies right bibasilar ill-defined densities noting ammonia is less likely however considering white count the patient's comorbid conditions will empirically treat pneumonia. -ordered azithromycin 500 mg daily for 3 days -ordered ceftriaxone 2 g IV daily. -will recheck CBC and procalcitonin. 3. COVID-19 positive, present on admission. Active -Viral infection less likely, patient tested positive for COVID-19 on 08/28/2020 and received Decadron and remdesivir therapy returning back to baseline prior to today's event. -serum markers are within normal values within normal lymphocyte count at 2600, total CK is 59, ferritin is 9.4, LDH is 424. -patient did receive COVID-19 vaccination yesterday and current presentation may represent an adverse reaction. -patient received Decadron 6 mg in the emergency room which will be continued daily. -patient also received remdesivir 200 mg IV loading dose. This will be discontinued as the patient is in a junctional rhythm at 48 at time of exam. -the positive COVID-19 test likely reflective persistent positivity without being infective nonetheless the patient will be and droplet isolation. 4. COPD, emphysema without exacerbation, present on admission, stable -Patient is on steroid therapy for COVID-19 viral pneumonia which will provide adequate therapy for COPD or emphysema exacerbation. -Continued home regimen of bronchodilators including Combivent 2 puffs daily and albuterol inhaler 4 puffs every 2 hours as needed for shortness of breath or wheezing. -order guaifenesin 600 mg twice daily -ordered incentive spirometry and flutter valve. 5. Congestive heart failure with elevated proBNP and possible exacerbation pulmonary hypertension with cor pulmonale, present on admission. Active. -ProBNP on admission labs is 763 -Chest x-ray finds no cardiomegaly and deaf eyes faint opacities and interstitial prominence. -CTA from prior visit 1 month ago identified dilated pulmonary arterie consistent with possible cor pulmonale secondary to chronic lung disease. Finding is not evident on night read from CTA tonight. -no evidence of overt failure, trace pedal edema. Will hold home regimen of Lasix 60 mg daily and recheck proBNP. -echocardiogram was deferred due to COVID-19 positivity, patient is not in extremis exam deferred and may be followed up on an outpatient basis. 6. Chronic mild dementia with behavioral disturbance, present on admission. Stable. -Patient presented with anxiety and confusion which is at patient's functional baseline. -at this time will hold Celexa due to drug interaction with azithromycin and cardiac rhythm disturbance. Will resume as rhythm stabilizes. 7. Diabetes mellitus type 2, insulin using, chronic, present on admission. Stable. -0 glucose on admission is 266. This may be elevated due to stress and or infection. It is expected that blood sugars will increase with dexamethasone therapy. -Hemoglobin A1c on prior admission was 6.4% indicative of tight glycemic control. -order glucose checks a.c. and hs with high dose correctional scale insulin. -heart healthy/carbohydrate consistent diet. VTE prophylaxis: Enoxaparin IV fluid: Saline lock Diet: Consistent carbohydrate heart healthy Code status: DNR/DNI documented on POLST dated 08/12/2019, Patient designates her son Chuck Block who holds DPOA to be her surrogate decision maker. The patient is admitted to the ICU due to her acute hypercarbic hypoxic respiratory failure with with multifactorial etiology requiring ongoing close monitoring and treatment to prevent complications or adverse events. The patient is admitted as an inpatient with expected length of stay to be greater than 2 midnights. Scores GCS [place] coma scale eye opening: Spontaneous [place] coma scale verbal response: Confused [place] coma scale motor response: Obey commands [place] coma scale total score: 14
--- NOTE | 2020-09-28 05:28 | PC.ADMIT ---
[facility] 394 Admission Note: The patient,Chana Stock,85 y/o, was given written information regarding hospital policies, unit procedures and contact persons. Patient's smoking status: Former smoker. Vital Signs - 8 hr 09/27/20 23:40 09/28/20 00:19 09/28/20 00:56 Temperature 98.9 F Pulse Rate 65 59 L 56 L Respiratory Rate 30 H 33 H 31 H Blood Pressure 122/56 L Pulse Oximetry 91 91 09/28/20 01:00 09/28/20 01:18 09/28/20 01:30 Temperature Pulse Rate 56 L 50 L 50 L Respiratory Rate 29 H 28 H 24 Blood Pressure 133/60 Pulse Oximetry 94 92 94 09/28/20 01:47 09/28/20 02:00 09/28/20 02:30 Temperature Pulse Rate 48 L 47 L 47 L Respiratory Rate 19 21 21 Blood Pressure 124/56 L 125/61 Pulse Oximetry 95 93 94 09/28/20 02:31 09/28/20 03:00 09/28/20 03:17 Temperature 98.8 F Pulse Rate 46 L 45 L 43 L Respiratory Rate 22 23 24 Blood Pressure 133/63 126/58 L Pulse Oximetry 93 94 92 09/28/20 03:30 09/28/20 03:31 09/28/20 04:00 Temperature Pulse Rate 48 L 47 L 44 L Respiratory Rate 23 23 26 H Blood Pressure 138/65 Pulse Oximetry 94 93 92 09/28/20 04:01 09/28/20 04:49 09/28/20 05:13 Temperature Pulse Rate 44 L 43 L Respiratory Rate 25 H 24 Blood Pressure 133/59 L Pulse Oximetry 92 90 L 93 Patient arrived via stretcher from ED in NAD. Too weak to transfer to bed; slider used. Patient A/O X 3 but has difficulty with questions about her medical history - very poor historian. VSS, afebrile. Sp02 90-93% 4LNC (patient's baseline is 2LNC at home). Tele junctional rhythm rate 45-50's. Denies pain. KAROLINE Nunez at bedside to eval upon arrival to room 230. Isolation maintained for droplet precautions per orders. Oriented to room, call light and plan of care. Verbalized understanding.
[2020-09-28] MEDS: CEFTRIAXONE 2 GM/50 ML FROZ.PIGGY IV (05:35)
[2020-09-28 07:53] LABS: Add Manual Diff / Slide Review NO; Basophils Absolute Auto 100 /uL (0-100); Basophils Percent Auto 0.5 % (0-2); Eosinophils Absolute Auto 0 /uL (0-450); Hematocrit 37.1 % (36-46); Hemoglobin 11.7 g/dL (12.0-16.0); Lymphocytes Absolute Auto 400 /uL (1100-4500); Lymphocytes Percent Auto 2.8 % (25-40); Mean Corpuscular HGB Conc 31.7 % (30-36); Mean Corpuscular Hemoglobin 29.6 PG (26-34); Mean Corpuscular Volume 93.5 fL (80-100); Monocytes Absolute Auto 200 /uL (0-900); Monocytes Percent Auto 1.7 % (3-14); Neutrophils Absolute Auto 12800 /uL (1500-7000); Platelet Count 183 X10^3/uL (150-400); Red Blood Cell Count 3.97 X10^6/uL (4.0-5.2); Red Cell Distribution Width 15.1 % (11.6-14.8); White Blood Cell Count 13.4 X10^3/uL (4.5-11.0)
[2020-09-28 08:11] LABS: NT-proBNP (BNP-Adult 18+) 2540 pg/mL (<450)
[2020-09-28 08:26] LABS: BUN Creatinine Ratio 29.4 (6-22); Blood Urea Nitrogen 42 mg/dL (7-17); Calcium 8.5 mg/dL (8.4-10.2); Carbon Dioxide 32 mmol/L (22-32); Chloride 94 mmol/L (98-107); Estimated Glomerular Filt Rate 34.9 mL/min (>60); Glucose 471 mg/dL (80-110); HEMOLYSIS < 15 (0-50); Potassium 5.3 mmol/L (3.4-5.1); Sodium 131 mmol/L (137-145)
[2020-09-28 08:41] LABS: Procalcitonin 0.32 ng/mL (<0.5)
[2020-09-28] MEDS: ALBUTEROL/IPRATROPIUM MDI 1 PUFF INH ×3 (09:09→20:05)
[2020-09-28] MEDS: FLUTICASONE/SALMETEROL 250/50 60 PUFF DISKUS INH ×2 (09:09→20:05)
[2020-09-28] MEDS: AZITHROMYCIN 500 MG in DEXTROSE 5% IN WATER 250 ML IV (09:26)
[2020-09-28] MEDS: INSULIN GLARGINE 100 UNIT/ML 3ML PEN 30 UNIT SUBCUT (09:27)
[2020-09-28] MEDS: INSULIN ASPART 100 UNIT/ML INSULN PEN SUBCUT ×4 (09:27→21:13)
[2020-09-28] MEDS: HEPARIN 5,000 UNIT/ML VIAL 7500 UNIT SUBCUT ×3 (09:28→21:12)
[2020-09-28] MEDS: guaiFENesin ER 600 MG TAB PO ×2 (09:29→21:12)
[2020-09-28] MEDS: DAPSONE 100 MG TABLET PO (09:29)
[2020-09-28] MEDS: ASPIRIN 81 MG CHEW TAB PO (09:29)
[2020-09-28] MEDS: FUROSEMIDE 40 MG/4 ML VIAL IV (09:32)
[2020-09-28 09:39] LABS: Reflexed Lactate in 2 Hours Y
[2020-09-28 10:09] LABS: Appearance Urine UA CLEAR; Bilirubin Urine UA NEGATIVE (NEGATIVE); Color Urine UA YELLOW; Glucose Urine UA 1+ g/dL (Negative); Ketones Urine UA NEGATIVE (NEGATIVE); Leukocyte Esterase Urine UA TRACE (NEGATIVE); Nitrite Urine UA NEGATIVE (Negative); Occult Blood Urine UA TRACE-INTACT (Negative); Protein Urine UA 1+ (Negative); Urobilinogen Urine UA 0.2 E.U./dL (0.2)
[2020-09-28 10:28] LABS: Bacteria Urine Few (2-10); RBC Urine 0-1/HPF (0-5/HPF); Squamous Epithelial Cell Urine 1-5 /HPF (0-5/HPF); WBC Urine 1-5/HPF (0-5/HPF)
[2020-09-28 10:29] LABS: Culture Indicated Urine Specimen Cultured
[2020-09-28 10:36] LABS: Lactate 2HR (Lactic Acid Rflx) 3.5 mmol/L (0.7-2.1)
--- NOTE | 2020-09-28 10:59 | CM.IDA ---
Initial DCP Assessment Note Patient is an 85 yo female, resident of [facility] in [place]. Patient is transferred from [facility] w/ mental status change. PMH includes COPD on continuous oxygen therapy 2-4 L, diabetes type 2, dementia, insomnia and psoriasis. Patient has swabbed COVID-19+ and received her COVID-19 vaccination yesterday. PCP: Altagracia Fleming Payer: [facility]/[employer] Reviewed chart. Patient is a resident at [facility], spouse has a nearby room to patient. Son/DPOA is decision maker. It is expected that patient will return home to [facility] upon DC. Placed call to Sindhu at [facility] P# [phone]. She explains patient is able to self transfer, needs a little assist in ambulating the facility, help w/showering, toilets mostly indp. Sindhu describes patient as pretty sharpand wonders why patient's chart includes dementia dx, states at patient's baseline she is decisional and A+Ox4 (?) Re: Hospice referral, neither patient or son wanted Hospice to start at [facility] so that referral was cancelled. Sindhu answering the phone over w/e . Requests that DCP team call as soon as we know more about potential DC date, patient will require a brief assessment by RN before return home. Following closely. [facility] Discharge Planning/Care Management Discharge Assessment Start: 09/28/20 10:44 Freq: Status: Active Protocol: Document 09/28/20 10:44 SUNNY (Rec: 09/28/20 10:59 [facility] [id number]) Discharge Planning Assessment Assigned Computer Programmer Analyst MEME Au/Assigned Designee Name Chuck Stock, dipesh/DPKASSIE (AR) Contact Information [phone] Advance Directives? Yes Advance Directives on File Yes History Provided By Medical Record Prior Living Arrangements Assisted Living Comment [facility] Household Members caregiver Type of transportation used prior to Relies on Others admit Willing to Return to Facility? Yes Independent with ADL's No Is patient alert and oriented? No Caregiver for Another No Community Services used prior to Hospice admission: Comment Hospice referral made during last admission 12.7-12.10, unsure what has happened since then ? Comment back to [facility] expected upon DC Discharge Plan Assisted Living Facility Transportation Arrangement Facility van Referrals Initiated None needed Additional Comment At this time Review Status In Process
--- NOTE | 2020-09-28 20:29 | PC.NURSE ---
Patient resting in bed this shift. Has been drowsy most of the shift. Does wake up easily and follow commands. Sat up and ate a small amount of dinner. Patient has denied any pain, SOB or chest discomfort. Slight occasional cough heard. Patient has been A&O, calm and cooperative.
[2020-09-28] MEDS: INSULIN GLARGINE 100 UNIT/ML 3ML PEN 20 UNIT SUBCUT (21:14)
[2020-09-29] VITALS (42 sets, daily range): BP systolic 111–139; BP diastolic 55–67; PULSE 51–77; RESP 15–37; TEMP 35.7–36.5; O2SAT 88–98
[2020-09-29] MEDS: CEFTRIAXONE 2 GM/50 ML FROZ.PIGGY IV (04:10)
[2020-09-29] MEDS: ALBUTEROL/IPRATROPIUM MDI 1 PUFF INH ×3 (05:12→19:45)
[2020-09-29] MEDS: FLUTICASONE/SALMETEROL 250/50 60 PUFF DISKUS INH ×2 (05:14→19:45)
[2020-09-29] MEDS: HEPARIN 5,000 UNIT/ML VIAL 7500 UNIT SUBCUT ×3 (06:00→20:45)
[2020-09-29] MEDS: ASPIRIN 81 MG CHEW TAB PO (08:57)
[2020-09-29] MEDS: AZITHROMYCIN 500 MG in DEXTROSE 5% IN WATER 250 ML IV (08:57)
[2020-09-29] MEDS: DAPSONE 100 MG TABLET PO (08:57)
[2020-09-29] MEDS: guaiFENesin ER 600 MG TAB PO ×2 (08:57→20:40)
[2020-09-29] MEDS: DEXAMETHASONE 10 MG/ML VIAL 6 MG IV (08:58)
[2020-09-29] MEDS: INSULIN GLARGINE 100 UNIT/ML 3ML PEN 30 UNIT SUBCUT ×2 (09:08→20:43)
[2020-09-29] MEDS: INSULIN ASPART 100 UNIT/ML INSULN PEN SUBCUT ×4 (09:09→20:41)
--- NOTE | 2020-09-29 11:04 | CM.DPC ---
Addendum entered by MEME Mercado 09/29/20 15:16: ADD: Call from the RN at [facility] at 1500 and confirmed she completed bedside assessment and pt is back to baseline and they can accept pt back but RN wanting to confirm with their pharmacy that they will get pt's new added meds in time for accepting pt tonight. RN states they should know within 30-60 minutes and are hopeful to transport pt back tonight. [facility] RN will call and update SAVINGS TE[employer]ER once they confirm as likely will be after [employer] shift. Plan: Patient to d/c either tonight or tomorrow pending pharmacy availability to get [facility] pt's new added meds for discharge. BF Addendum entered by MEME Mercado 09/29/20 14:05: ADD: SW faxed signed med rec, no scripts, d/c summary, orders and visit to [facility] to review while awaiting for their assessment bedside in half an hour. BF Original Note: DCP Discharge [facility] Per MD, pt has stabilized and back to baseline for oxygen needs and abilities and stable for d/c back to Assisted Living today. NESTOR called Sindhu at [facility] and updated on pt status and she confirms that RN will complete bedside assessment of pt today but cannot until next RN comes on shift for the weekend and therefore RN will be over about 1430 today and if all alright then they can transport pt around 1500. NESTOR updated RN and aware of [facility] doing assessment this afternoon. NESTOR called pt's PEGGY/son Chuck with update on above and he is agreeable and requested to be transferred into pt room to check with pt on how she is feeling. Plan: NESTOR to follow for [facility] assessment around 1430 towards plan of return this afternoon. MEME Mercado
--- NOTE | 2020-09-29 11:55 | PM.DS.1 ---
History of Present Illness History of Present Illness Date Patient Seen: 09/29/20 Time Patient Seen: 10:15 Chief complaint: Mental Status Change Narrative: As per KAROLINE Reed: Ms. Chana Stock is an 84-year-old female with a past medical history significant for COPD on continuous oxygen therapy 2-4 L, diabetes type 2, dementia, insomnia and psoriasis who presents to the ER from [facility] following ground level fall and and was unable to get up. The patient is on chronic home O2 at 2-4 L and describes more shortness of breath than usual generalized weakness. Upon upon arrival of EMS O2 is titrated up to 5 L to maintain adequate saturation to 90%. Patient does not recall the circumstances of her fall however did strike her head has an abrasion on her forehead and abrasions and redness to bilateral knees. Of note the patient did receive her COVID-19 vaccination yesterday. The patient is alert and communicative with impaired recall which is reportedly her functional baseline. She denies complaints of fevers or chills, head pain or headache. She states today she is been more weak than usual. She denies chest pain or palpitations describes a hard time breathing but denies cough. She reports no abdominal pain, nausea vomiting, constipation diarrhea. Upon arrival to the ER the patient has a temperature 98.9, heart rate of 65, blood pressure 122/56, respiratory rate of 30 saturating 91% on 4 L. chest x-ray reveals in her stitch will prominence with faint bilateral opacities. A CT angiograms is obtained and is negative for pulmonary embolism slight pericardial effusion, cardiomegaly, elevated left lung base with mild left greater than right basilar dependent ill-defined densities central lobar emphysema with slight scarring no other consolidations pleural effusions or pneumothorax. Twelve lead EKG is obtained finding a junctional rhythm at a rate of [address] or T-wave changes, no evidence of infarct. Arterial blood gas obtained finding a pH of 7.28, pCO2 58.4, PO2 91, HC03 27 and base excess 1 on 36% FiO2. Initial labs reveal an elevated white count at 17.2 with elevated neutrophils at 12,600 and normal lymphocyte count at 2600 and elevated monocytes at 1500. She has a hemoglobin of 13 with hematocrit of 42.8. Her platelets are 251. PT is 12.6, INR 1.1 and PTT is 28. Patient has elevated D-dimer of 926 (elevated when corrected for age). Electrolytes are within normal limits with a BUN of 36 and a creatinine of 1.49. Nonfasting glucose is 266. Liver functions are all within normal limits. On upon arrival patient had lactic acid of 6.6 improved to 2.4 following hydration, procalcitonin is 0.16.. CRP is 2.0 Ferritin level is 9.4, LDH is 434, total CK is 59, troponin is 0.028, proBNP is 763. COVID screening is positive. In the ER the patient received Decadron 6 mg and remdesivir 200 mg loading dose. The patient is admitted to the hospital for acute multifactorial hypoxic and hypercarbic respiratory failure. Discharge Providers Provider Date of admission: 09/28/20 03:52 Discharge Date: 09/29/20 Consults: 09/28/20 03:23 Consult to Discharge Planning Routine Comment: 09/28/20 04:50 Consult to Respiratory Therapy Evaluate & Treat Comment: Physician Instructions: Evaluate and treat 09/28/20 05:23 Consult to Respiratory Therapy Evaluate & Treat Comment: Physician Instructions: Evaluate and treat Discharge provider: Rico Cordova DO Summary Hospital Course Discharge Diagnosis: Please see hospital course by problem list noted below. Hospital Course: This is an 85-year-old female patient presents to the ER following a fall at [facility] and is unable to get up. The patient was found to be dyspneic with generalized weakness. Improved with therapies noted below. Treated for possible bacterial pneumonia, COPD exacerbation, heart failure exacerbation, and possible reaction to COVID 19 vaccination. 1. Acute on chronic hypoxemic and hypercarbic respiratory failure, present on admission. Acute portion resolved. -patient with uncompensated respiratory acidosis with pH of 7.28, pCO2 58.4, O2 91, bicarb 27 with a base excess 1 on 36% FiO2. P/F ratio is calculated at 252. -patient with mild increased work of breathing requiring additional oxygen beyond her baseline 2-4 L at her care center. -decompensation likely multifactorial: Bacterial infection-pneumonia elevated white count at 17.2, with increased absolute neutrophils at 12,600 and procalcitonin 0.16, lactate of initial 6.6. COPD exacerbation Congestive heart failure-patient with elevated BNP at 763 and bibasilar crackles on auscultation. Possible adverse reaction to COVID-19 vaccination received yesterday. -will address etiologies below 2. Bacterial pneumonia, community-acquired, present on admission, active. -patient had elevated white count at 17. Two with increased neutrophils of 12,600. Procalcitonin is is 0.16 -chest x-ray identifies right bibasilar ill-defined densities noting ammonia is less likely however considering white count the patient's comorbid conditions will empirically treat pneumonia. -continue augmentin as an outpatient for 3 additional days. 3. COVID-19 positive, present on admission. Active -Viral infection less likely, patient tested positive for COVID-19 on 08/28/2020 and received Decadron and remdesivir therapy returning back to baseline prior to today's event. -serum markers are within normal values within normal lymphocyte count at 2600, total CK is 59, ferritin is 9.4, LDH is 424. -patient did receive COVID-19 vaccination yesterday and current presentation may represent an adverse reaction as vaccine is supposed to have been given >90 days after prior infection. -patient received Decadron 6 mg in the emergency room which was continued while here. She will continue prednisone as an outpatient for COPD infection. -patient also received remdesivir 200 mg IV loading dose. This will be discontinued as the patient is in a junctional rhythm at 48 at time of exam. 4. COPD, emphysema with exacerbation, present on admission, stable -Patient is on steroid therapy for COVID-19 viral pneumonia which will provide adequate therapy for COPD or emphysema exacerbation. Will discharge on oral prednisone as noted above. -Continued home regimen of bronchodilators including Combivent 2 puffs daily and albuterol inhaler 4 puffs every 2 hours as needed for shortness of breath or wheezing. 5. Congestive heart failure with elevated proBNP and possible exacerbation pulmonary hypertension with cor pulmonale, present on admission. Active. -ProBNP on admission labs is 763 -Chest x-ray finds no cardiomegaly and faint opacities and interstitial prominence. -CTA from prior visit 1 month ago identified dilated pulmonary arterie consistent with possible cor pulmonale secondary to chronic lung disease. Finding is not evident on this CTA. -patient was lightly diuresed with IV lasix with improvement in oxygenation. -TTE deferred given COVID + testing as noted above. 6. Chronic mild dementia with behavioral disturbance, present on admission. Stable. -Patient presented with anxiety and confusion which is at patient's functional baseline. -can resume home medications upon discharge. 7. Diabetes mellitus type 2, insulin using, chronic, present on admission. Stable. -Patient's glucose control while admitted suboptimal. This may be elevated due do to stress and or infection. It is expected that blood sugars were increased with dexamethasone therapy. -Hemoglobin A1c on prior admission was 6.4% indicative of tight glycemic control. Dispo: tranfer to [facility]. Exam Vital Signs (past 8 hours): - 09/29/20 04:00 09/29/20 04:22 09/29/20 05:12 Temperature 96.2 F L Pulse Rate 51 L 55 L 57 L Respiratory Rate 18 19 15 Blood Pressure 111/55 L 121/58 L Pulse Oximetry 93 92 94 09/29/20 05:14 09/29/20 08:00 09/29/20 10:14 Temperature 97.3 F L Pulse Rate 58 L 59 L Respiratory Rate 16 22 Blood Pressure 139/67 Pulse Oximetry 90 L 92 09/29/20 11:50 Temperature Pulse Rate Respiratory Rate Blood Pressure Pulse Oximetry 93 Oxygen Delivery Method Nasal Cannula Oxygen Flow Rate 3 Narrative Exam Narrative: GENERAL APPEARANCE: well developed, morbidly obese female who is chronically ill-appearing, appears comfortable on nasal cannula oxygen HEENT: Abrasion right forehead, nontender to palpation, PERRLA, conjunctiva clear, sclera anicteric, vision tracts bilaterally, no rhinorrhea, mucous membranes are moist and pink without lesions or exudate. NECK/THYROID: nontender to palpation, no step-offs, no JVD, no thyromegaly, trachea midline. LYMPH NODES: no cervical or supraclavicular lymphadenopathy. SKIN: Pale, thin, warm and dry, small areas ecchymosis bilateral arms contusion/abrasion bilateral knees skin, nd dry scaly feet HEART: Bradycardic rate with regular rhythm, S1-S2, no murmur, no rubs or gallops, palpable dorsalis pedis pulses, trace bilateral pedal edema LUNGS: Breath sounds diminished bases bilaterally with crackles, no cough present CHEST: Symmetrical movement, no accessory muscle use, shallow tidal volume ABDOMEN: Soft, protuberant, nontender, no organomegaly the exam is limited by body habitus, no flank or suprapubic tenderness, active bowel tones. EXTREMITIES: Decreased range of motion, strength is 4/5 and symmetrical, no deformities or joint effusions, clubbing present. NEUROLOGIC: AAO x person only, difficulty following multistep commands, no lateralizing symptoms and cranial nerves grossly intact, sensation intact to light touch, hearing grossly normal to speech. PSYCH: Patient appears anxious for remains cooperative with stable behavior Objective Labs Result Diagrams: 09/29/20 17:15 09/29/20 17:15 Labs: Laboratory Results - last 24 hr 09/28/20 04:30 Nasal Screen MRSA (PCR) Negative for mrsa [facility] Medical History (Updated 09/28/20 @ 04:57 by KAROLINE Reed) Cerebral microvascular disease COPD (chronic obstructive pulmonary disease) COVID-19 Dementia Diabetes Insomnia Peripheral neuropathy Psoriasis Venous stasis of both lower extremities Surgical History (Updated 09/28/20 @ 04:50 by KAROLINE Reed) Surgical history unknown Social History household members: caregiver Smoking Status: Former smoker Discharge Plan Discharge Plan Patient Disposition: Assisted Living Transfer to: [facility] Provider Discharge Comment: This is an 85-year-old female patient presents to the ER following a fall at [facility] and is unable to get up. The patient was found to be dyspneic with generalized weakness. Improved with therapies noted below. Treated for possible bacterial pneumonia, COPD exacerbation, heart failure exacerbation, and possible reaction to COVID 19 vaccination. 1. Acute on chronic hypoxemic and hypercarbic respiratory failure, present on admission. Acute portion resolved. -patient with uncompensated respiratory acidosis with pH of 7.28, pCO2 58.4, O2 91, bicarb 27 with a base excess 1 on 36% FiO2. P/F ratio is calculated at 252. -patient with mild increased work of breathing requiring additional oxygen beyond her baseline 2-4 L at her care center. -decompensation likely multifactorial: Bacterial infection-pneumonia elevated white count at 17.2, with increased absolute neutrophils at 12,600 and procalcitonin 0.16, lactate of initial 6.6. COPD exacerbation Congestive heart failure-patient with elevated BNP at 763 and bibasilar crackles on auscultation. Possible adverse reaction to COVID-19 vaccination received yesterday. -will address etiologies below 2. Bacterial pneumonia, community-acquired, present on admission, active. -patient had elevated white count at 17. Two with increased neutrophils of 12,600. Procalcitonin is is 0.16 -chest x-ray identifies right bibasilar ill-defined densities noting ammonia is less likely however considering white count the patient's comorbid conditions will empirically treat pneumonia. -continue augmentin as an outpatient for 3 additional days. 3. COVID-19 positive, present on admission. Active -Viral infection less likely, patient tested positive for COVID-19 on 08/28/2020 and received Decadron and remdesivir therapy returning back to baseline prior to today's event. -serum markers are within normal values within normal lymphocyte count at 2600, total CK is 59, ferritin is 9.4, LDH is 424. -patient did receive COVID-19 vaccination yesterday and current presentation may represent an adverse reaction as vaccine is supposed to have been given >90 days after prior infection. -patient received Decadron 6 mg in the emergency room which was continued while here. She will continue prednisone as an outpatient for COPD infection. -patient also received remdesivir 200 mg IV loading dose. This will be discontinued as the patient is in a junctional rhythm at 48 at time of exam. 4. COPD, emphysema with exacerbation, present on admission, stable -Patient is on steroid therapy for COVID-19 viral pneumonia which will provide adequate therapy for COPD or emphysema exacerbation. Will discharge on oral prednisone as noted above. -Continued home regimen of bronchodilators including Combivent 2 puffs daily and albuterol inhaler 4 puffs every 2 hours as needed for shortness of breath or wheezing. 5. Congestive heart failure with elevated proBNP and possible exacerbation pulmonary hypertension with cor pulmonale, present on admission. Active. -ProBNP on admission labs is 763 -Chest x-ray finds no cardiomegaly and faint opacities and interstitial prominence. -CTA from prior visit 1 month ago identified dilated pulmonary arterie consistent with possible cor pulmonale secondary to chronic lung disease. Finding is not evident on this CTA. -patient was lightly diuresed with IV lasix with improvement in oxygenation. -TTE deferred given COVID + testing as noted above. 6. Chronic mild dementia with behavioral disturbance, present on admission. Stable. -Patient presented with anxiety and confusion which is at patient's functional baseline. -can resume home medications upon discharge. 7. Diabetes mellitus type 2, insulin using, chronic, present on admission. Stable. -Patient's glucose control while admitted suboptimal. This may be elevated due do to stress and or infection. It is expected that blood sugars were increased with dexamethasone therapy. -Hemoglobin A1c on prior admission was 6.4% indicative of tight glycemic control. Dispo: tranfer to [facility] living. Discharge orders & Medications Discharge Orders: Discharge (Order); Ordered 09/29/20 Ordered By: Rico Cordova Prescriptions: New amoxicillin-pot clavulanate 875-125 mg tablet 1 tab PO BID 3 Days Qty: 6 RF: 0 prednisone 20 mg tablet 40 mg PO DAILY 3 Days Qty: 6 RF: 0 Continued aspirin 81 mg Tablet,Chewable 81 mg PO DAILY RF: 0 Lantus Solostar U-100 Insulin 100 unit/mL (3 mL) Insulin Pen 20 unit SUBCUT BID RF: 0 furosemide 40 mg tablet 60 mg PO DAILY RF: 0 fluticasone propion-salmeterol 250-50 mcg/dose blister with device 1 inh INHALATION Q12H RF: 0 acetaminophen [Tylenol] 325 mg Tablet 650 mg PO BID RF: 0 ketoconazole 2 % shampoo 1 applic TOPICAL Q2D RF: 0 citalopram 10 mg tablet 10 mg PO DAILY RF: 0 olanzapine 5 mg tablet 5 mg PO BEDTIME RF: 0 melatonin 3 mg Tablet 3 mg PO BEDTIME RF: 0 simvastatin 20 mg tablet 20 mg PO DAILY RF: 0 dapsone 100 mg tablet 100 mg PO DAILY RF: 0 albuterol sulfate 90 mcg/actuation Hfa Aerosol Inhaler 1 inh INHALATION Q4H PRN (Reason: Shortness Of Breath) RF: 0 albuterol sulfate [ProAir HFA] 90 mcg/actuation Hfa Aerosol Inhaler 1 inh INHALATION PRN PRN (Reason: Shortness Of Breath) RF: 0 docusate sodium 250 mg Capsule 250 mg PO DAILY PRN (Reason: Constipation) RF: 0 ketoconazole 2 % Cream 1 applic TOPICAL BID PRN (Reason: Rash) RF: 0 ondansetron 4 mg Tablet,Disintegrating 4 mg PO Q4H PRN (Reason: Nausea) RF: 0 insulin lispro [Humalog KwikPen Insulin] 100 unit/mL insulin pen See Rx Instructions .ROUTE .COMPLEX RF: 0 Spiriva with HandiHaler 18 mcg capsule, w/inhalation device 1 cap INHALATION DAILY RF: 0 Atrovent HFA 17 mcg/actuation HFA aerosol inhaler 2 puff INHALATION QID PRN (Reason: Shortness Of Breath) RF: 0 Humira Pen 40 mg/0.8 mL pen injector kit 40 mg SUBCUT Q2W RF: 0 guaifenesin [Mucus Relief ER] 600 mg Tablet Extended Release 12hr 1,200 mg PO Q12HR PRN (Reason: Cough) Qty: 30 RF: 0 Discharge Health Status Precautions: Droplet and Airborne Diet/Activity/Treatments Diet: Diet as Tolerated and Carb-consistent/Diabetic Visit Report/Discharge Packet Instructions: DI for COVID-19 (Suspected or Confirmed ) Quality VTE Deep Vein Thrombosis/Pulmonary Embolism Present on Admission: No
--- NOTE | 2020-09-29 11:57 | PC.NURSE ---
Pt checked on and assessed. Pt with mild memory loss. Oriented to self, place and year and month. Pt is appropriate in conversation. Denies pain. Pt received on 3 L NC, pt reports this is her home O2 level. Pt is SOB with exertion and when laying flat. Pt with diminished lung sounds throughout. Pt with VSS. BP 130s/60s. Denies chest pain or pressure. Pt tolerating diet. Denies nausea. BG has been elevated. Treated with long and short acting insuin. Pt is voiding adequate volume dark yellow urine. Pt is both continent and incontinent. Pt with generalized weakness. 1 person assist for mobility.
[2020-09-29] MEDS: FUROSEMIDE 20 MG TABLET 60 MG PO (14:47)
[2020-09-29 17:33] LABS: Add Manual Diff / Slide Review NO; Basophils Absolute Auto 0 /uL (0-100); Basophils Percent Auto 0.4 % (0-2); Eosinophils Absolute Auto 0 /uL (0-450); Eosinophils Percent Auto 0.2 % (2-4); Hematocrit 36.3 % (36-46); Hemoglobin 11.4 g/dL (12.0-16.0); Lymphocytes Absolute Auto 300 /uL (1100-4500); Lymphocytes Percent Auto 3.3 % (25-40); Mean Corpuscular HGB Conc 31.4 % (30-36); Mean Corpuscular Hemoglobin 29.4 PG (26-34); Mean Corpuscular Volume 93.6 fL (80-100); Monocytes Absolute Auto 200 /uL (0-900); Neutrophils Absolute Auto 9200 /uL (1500-7000); Neutrophils Percent Auto 94.1 % (50-75); Platelet Count 199 X10^3/uL (150-400); Red Blood Cell Count 3.88 X10^6/uL (4.0-5.2); Red Cell Distribution Width 14.8 % (11.6-14.8); White Blood Cell Count 9.7 X10^3/uL (4.5-11.0)
[2020-09-29 17:45] LABS: BUN Creatinine Ratio 38.5 (6-22); Blood Urea Nitrogen 42 mg/dL (7-17); Calcium 8.5 mg/dL (8.4-10.2); Carbon Dioxide 36 mmol/L (22-32); Chloride 97 mmol/L (98-107); Estimated Glomerular Filt Rate 47.7 mL/min (>60); Glucose 407 mg/dL (80-110); HEMOLYSIS < 15 (0-50); Lactate (Lactic Acid) 2.1 mmol/L (0.7-2.1); Magnesium 2.4 mg/dL (1.6-2.3); Potassium 5.3 mmol/L (3.4-5.1); Sodium 136 mmol/L (137-145)
[2020-09-29 19:24] LABS: Reflexed Lactate in 2 Hours Y
[2020-09-29] MEDS: MELATONIN 3 MG TABLET PO (20:41)
[2020-09-29 21:00] LABS: Lactate 2HR (Lactic Acid Rflx) 3.3 mmol/L (0.7-2.1)
[2020-09-29] MEDS: SODIUM CHLORIDE 0.9% 500 ML IV (21:54)
[2020-09-30] VITALS (13 sets, daily range): BP systolic 119–138; BP diastolic 60–65; PULSE 51–72; RESP 15–24; TEMP 36.3–36.4; O2SAT 90–95
[2020-09-30] MEDS: INSULIN ASPART 100 UNIT/ML INSULN PEN SUBCUT ×3 (00:46→12:24)
[2020-09-30] MEDS: CEFTRIAXONE 2 GM/50 ML FROZ.PIGGY IV (04:56)
[2020-09-30] MEDS: HEPARIN 5,000 UNIT/ML VIAL 7500 UNIT SUBCUT ×2 (04:59→14:08)
[2020-09-30] MEDS: ALBUTEROL/IPRATROPIUM MDI 1 PUFF INH (05:50)
[2020-09-30] MEDS: FLUTICASONE/SALMETEROL 250/50 60 PUFF DISKUS INH (05:53)
[2020-09-30] MEDS: AZITHROMYCIN 500 MG in DEXTROSE 5% IN WATER 250 ML IV (09:06)
[2020-09-30] MEDS: ASPIRIN 81 MG CHEW TAB PO (09:06)
[2020-09-30] MEDS: DEXAMETHASONE 10 MG/ML VIAL 6 MG IV (09:07)
[2020-09-30] MEDS: DAPSONE 100 MG TABLET PO (09:07)
[2020-09-30] MEDS: guaiFENesin ER 600 MG TAB PO (09:08)
[2020-09-30] MEDS: FUROSEMIDE 40 MG TABLET 60 MG PO (09:12)
[2020-09-30] MEDS: INSULIN GLARGINE 100 UNIT/ML 3ML PEN 30 UNIT SUBCUT (10:01)
--- NOTE | 2020-09-30 11:50 | CM.DANOTE ---
Addendum entered by Vilma Allen R.N. 09/30/20 13:24: Vikram called [facility] back and explained that patient needed to DC . She is medically ready and was ready yesterday. [facility] adission nurse stated she understood and will just need RX fax to her so she can get them filled through [facility] since their usual pharmacy is closed. VIKRAM spoke with Dr. Cordova and got copy of RXs, faxed them to [phone]. Call admission nurse back she recieved those RXs and can pick patient up at 1600 today. VIKRAM notified patients nurse, charge nurse, MD and the [facility] who is making up a D/c packet. Vilma Allen RN Original Note: DCP continued: EMR reviewed: patient is ready for D/C [facility] has agreed to accept patient once their pharmacy has the new medications for the patient. VIKRAM called [facility] today and was told they still do not have patients new medications and their pharmacy is no open today on thursday.... VIKRAM was told that [facility] admissions nurse will work on getting some answers about when they will have the medications and be able to accept the patient and will call CM back. Vilma Allen RN
--- NOTE | 2020-09-30 14:33 | PC.NURSE ---
Dayshift Note: Pt with memory loss at baseline. Pt denies pain. Pt is mildly confused on waking and refuses personal care. Pt is easily reoriented and agreed to be changed later in morning. Pt with mild memory loss. Improved throughout the day.Pt with fall at care facility. Healing bruises on knees and an abrasion on forehead. Pt with macerated skin on buttocks from frequent urination (on lasix and refused care). Pt wears O2 at baseline, 2-3 LNC. Pt currently on 2 L NC with SPO2 93-94%. Pt denies SOB at rest, SOB with exertion and mild desaturation to upper 80s with mobility. Pt using IS as instructed, up to 1000 ml. Pt bradycardic at baseline. VSS. BP WNL. Denies chest pain or pressure. Pt denies nausea, tolerating diet, active BTs. Pt voiding adequate volume urine. Pt is both continent and incontinent. Pt is a one person assist with FWW. Pt has been OOB to chair for majority of the day. Pt given bed bath and shampoo this morning. Chair alarm on and functioning. Call light within reach. Pt instructed to call with assistance for transferring/bathrooming. Will continue to monitor, notify MD with changes.
== END 2020-09-30 16:42 | DRG 189 ==
LOC: ED 09-28 03:18 → ICU 09-28 03:52
PROVIDERS: Internal Medicine; Admitting Provider Nurse Practitioner Adult Health; Emergency Provider Emergency Medicine; Referring Provider Emergency Medicine; Visit Provider Nurse Practitioner Adult Health
DX: J96.21 Acute and chronic respiratory failure with hypoxia (principal); J15.9 Unspecified bacterial pneumonia; Z68.41 Body mass index [BMI] 40.0-44.9, adult; E87.2 Acidosis; J44.0 Chronic obstructive pulmonary disease with (acute) lower respiratory infection; J44.1 Chronic obstructive pulmonary disease with (acute) exacerbation; T88.1XXA Other complications following immunization, not elsewhere classified, initial encounter; F03.91 Unspecified dementia, unspecified severity, with behavioral disturbance; I50.9 Heart failure, unspecified; J96.22 Acute and chronic respiratory failure with hypercapnia; T50.B95A Adverse effect of other viral vaccines, initial encounter; Z99.81 Dependence on supplemental oxygen; E66.01 Morbid (severe) obesity due to excess calories; Z86.16 Personal history of COVID-19; E11.9 Type 2 diabetes mellitus without complications; G47.00 Insomnia, unspecified; W18.30XA Fall on same level, unspecified, initial encounter; Y92.093 Driveway of other non-institutional residence as the place of occurrence of the external cause; Z87.891 Personal history of nicotine dependence; Z79.4 Long term (current) use of insulin
CPT/HCPCS: 36415; 36600; 71045; 71275; 80048; 80053; 81001; 82550; 82728; 82805; 82962; 83605; 83615; 83735; 83880; 84145; 84484; 85025; 85379; 85610; 85730; 86140; 87040; 87086; 87633; 87635; 87797; 94640; 94762; 96361; 96365; 96366; 99285; C9803; J0696; J1100; J1644; J1940; Q9967

== ENCOUNTER → 2020-10-03 07:30 | Outpatient (ROUT) | payer MEDICARE, SELFPAY ==
[2020-09-28 04:50] VITALS: BMI 42.5
[2020-10-03 08:19] LABS: Add Manual Diff / Slide Review NO; Basophils Absolute Auto 100 /uL (0-100); Basophils Percent Auto 0.6 % (0-2); Eosinophils Absolute Auto 100 /uL (0-450); Eosinophils Percent Auto 0.8 % (2-4); Hemoglobin 11.3 g/dL (12.0-16.0); Lymphocytes Absolute Auto 2100 /uL (1100-4500); Mean Corpuscular HGB Conc 31.4 % (30-36); Mean Corpuscular Hemoglobin 29.3 PG (26-34); Mean Corpuscular Volume 93.3 fL (80-100); Monocytes Absolute Auto 800 /uL (0-900); Monocytes Percent Auto 6.6 % (3-14); Neutrophils Absolute Auto 9400 /uL (1500-7000); Platelet Count 233 X10^3/uL (150-400); Red Blood Cell Count 3.86 X10^6/uL (4.0-5.2); Red Cell Distribution Width 14.9 % (11.6-14.8); White Blood Cell Count 12.6 X10^3/uL (4.5-11.0)
[2020-10-03 08:29] LABS: BUN Creatinine Ratio 32.3 (6-22); Blood Urea Nitrogen 30 mg/dL (7-17); Calcium 8.5 mg/dL (8.4-10.2); Chloride 95 mmol/L (98-107); Estimated Glomerular Filt Rate 57.3 mL/min (>60); Glucose 205 mg/dL (80-110); HEMOLYSIS < 15 (0-50); Potassium 4.3 mmol/L (3.4-5.1); Sodium 137 mmol/L (137-145)
[2020-10-03 08:37] LABS: NT-proBNP (BNP-Adult 18+) 258 pg/mL (<450)
[2020-10-03 08:45] LABS: Carbon Dioxide 40 mmol/L (22-32)
== END ==
PROVIDERS: Visit Provider Nurse Practitioner Family
DX: J18.9 Pneumonia, unspecified organism (principal); I50.9 Heart failure, unspecified; Z20.822 Contact with and (suspected) exposure to COVID-19
CPT/HCPCS: 36415; 80048; 83880; 85025

== ENCOUNTER → 2020-10-10 07:33 | Outpatient (ROUT) | payer MEDICARE, SELFPAY ==
[2020-09-28 04:50] VITALS: BMI 42.5
[2020-10-10 07:52] LABS: Add Manual Diff / Slide Review NO; Basophils Absolute Auto 100 /uL (0-100); Basophils Percent Auto 0.5 % (0-2); Eosinophils Absolute Auto 200 /uL (0-450); Eosinophils Percent Auto 1.9 % (2-4); Hematocrit 36.1 % (36-46); Hemoglobin 11.4 g/dL (12.0-16.0); Lymphocytes Absolute Auto 2100 /uL (1100-4500); Lymphocytes Percent Auto 21.5 % (25-40); Mean Corpuscular HGB Conc 31.7 % (30-36); Mean Corpuscular Hemoglobin 29.7 PG (26-34); Mean Corpuscular Volume 93.7 fL (80-100); Monocytes Absolute Auto 900 /uL (0-900); Monocytes Percent Auto 8.6 % (3-14); Neutrophils Absolute Auto 6600 /uL (1500-7000); Neutrophils Percent Auto 67.5 % (50-75); Platelet Count 183 X10^3/uL (150-400); Red Blood Cell Count 3.85 X10^6/uL (4.0-5.2); Red Cell Distribution Width 15.6 % (11.6-14.8); White Blood Cell Count 9.9 X10^3/uL (4.5-11.0)
[2020-10-10 08:07] LABS: BUN Creatinine Ratio 24.7 (6-22); Blood Urea Nitrogen 22 mg/dL (7-17); Calcium 8.5 mg/dL (8.4-10.2); Chloride 97 mmol/L (98-107); Estimated Glomerular Filt Rate > 60.0 mL/min (>60); Glucose 182 mg/dL (80-110); HEMOLYSIS < 15 (0-50); Potassium 3.9 mmol/L (3.4-5.1); Sodium 138 mmol/L (137-145)
[2020-10-10 08:14] LABS: Carbon Dioxide 37 mmol/L (22-32)
== END ==
PROVIDERS: Visit Provider Nurse Practitioner Family
DX: J18.9 Pneumonia, unspecified organism (principal)
CPT/HCPCS: 36415; 80048; 85025

== ENCOUNTER → 2021-01-23 09:05 | Outpatient (ROUT) | payer MEDICARE, SELFPAY ==
[2020-09-28 04:50] VITALS: BMI 42.5
[2021-01-23 10:27] LABS: BUN Creatinine Ratio 27.8 (6-22); Blood Urea Nitrogen 27 mg/dL (7-17); Calcium 8.8 mg/dL (8.4-10.2); Carbon Dioxide 37 mmol/L (22-32); Chloride 101 mmol/L (98-107); Estimated Glomerular Filt Rate 54.6 mL/min (>60); Glucose 144 mg/dL (80-110); HEMOLYSIS < 15 (0-50); Hemoglobin A1C% w Est Avg Glu 6.8 % (4.0-6.0); Potassium 3.9 mmol/L (3.4-5.1); Sodium 143 mmol/L (137-145)
[2021-01-23 10:30] LABS: Add Manual Diff / Slide Review NO; Basophils Absolute Auto 100 /uL (0-100); Basophils Percent Auto 0.9 % (0-2); Eosinophils Absolute Auto 200 /uL (0-450); Eosinophils Percent Auto 2.7 % (2-4); Hematocrit 36.9 % (36-46); Hemoglobin 11.9 g/dL (12.0-16.0); Lymphocytes Absolute Auto 1900 /uL (1100-4500); Lymphocytes Percent Auto 22.4 % (25-40); Mean Corpuscular HGB Conc 32.3 % (30-36); Mean Corpuscular Hemoglobin 30.6 PG (26-34); Mean Corpuscular Volume 94.7 fL (80-100); Monocytes Absolute Auto 600 /uL (0-900); Monocytes Percent Auto 7.1 % (3-14); Neutrophils Absolute Auto 5700 /uL (1500-7000); Neutrophils Percent Auto 66.9 % (50-75); Platelet Count 160 X10^3/uL (150-400); Red Cell Distribution Width 13.9 % (11.6-14.8); White Blood Cell Count 8.5 X10^3/uL (4.5-11.0)
[2021-01-23 12:00] LABS: Appearance Urine UA CLEAR; Bilirubin Urine UA NEGATIVE (NEGATIVE); Color Urine UA YELLOW; Glucose Urine UA 1+ g/dL (Negative); Ketones Urine UA NEGATIVE (NEGATIVE); Leukocyte Esterase Urine UA NEGATIVE (NEGATIVE); Nitrite Urine UA NEGATIVE (Negative); Occult Blood Urine UA NEGATIVE (Negative); Protein Urine UA NEGATIVE (Negative); Urobilinogen Urine UA 0.2 E.U./dL (0.2)
[2021-01-23 12:28] LABS: Bacteria Urine Occasional (0-1); RBC Urine 0-1/HPF (0-5/HPF); Squamous Epithelial Cell Urine 1-5 /HPF (0-5/HPF); WBC Urine 0-1/HPF (0-5/HPF)
[2021-01-23 12:29] LABS: Culture Indicated Urine Cult Not Indicated
== END ==
PROVIDERS: Visit Provider Nurse Practitioner Family
DX: E11.9 Type 2 diabetes mellitus without complications (principal); T30.0 Burn of unspecified body region, unspecified degree
CPT/HCPCS: 36415; 80048; 81001; 83036; 85025

== ENCOUNTER → 2021-02-02 16:54 | Outpatient (ROUT) | payer MEDICARE, SELFPAY ==
[2020-09-28 04:50] VITALS: BMI 42.5
[2021-02-02 16:59] LABS: Bacteria Urine None Seen
[2021-02-02 17:33] LABS: Appearance Urine UA CLEAR; Bilirubin Urine UA NEGATIVE (NEGATIVE); Color Urine UA YELLOW; Glucose Urine UA 1+ g/dL (Negative); Ketones Urine UA NEGATIVE (NEGATIVE); Leukocyte Esterase Urine UA TRACE (NEGATIVE); Nitrite Urine UA NEGATIVE (Negative); Occult Blood Urine UA NEGATIVE (Negative); Protein Urine UA TRACE (Negative); Specific Gravity Urine UA >=1.030 (1.000-1.035); Urobilinogen Urine UA 0.2 E.U./dL (0.2)
[2021-02-02 17:42] LABS: Culture Indicated Urine Specimen Cultured; RBC Urine 1-5/HPF (0-5/HPF); Squamous Epithelial Cell Urine 1-5 /HPF (0-5/HPF); WBC Urine 1-5/HPF (0-5/HPF)
== END ==
PROVIDERS: Visit Provider Nurse Practitioner Family
DX: R30.0 Dysuria (principal)
CPT/HCPCS: 81001; 87077; 87086; 87186

== ENCOUNTER → 2021-02-13 07:35 | Outpatient (ROUT) | payer MEDICARE, SELFPAY ==
[2020-09-28 04:50] VITALS: BMI 42.5
[2021-02-13 08:57] LABS: BUN Creatinine Ratio 31.5 (6-22); Blood Urea Nitrogen 34 mg/dL (7-17); Calcium 8.8 mg/dL (8.4-10.2); Chloride 99 mmol/L (98-107); Estimated Glomerular Filt Rate 48.2 mL/min (>60); Glucose 106 mg/dL (80-110); HEMOLYSIS < 15 (0-50); Potassium 3.9 mmol/L (3.4-5.1); Sodium 142 mmol/L (137-145)
[2021-02-13 09:00] LABS: NT-proBNP (BNP-Adult 18+) 552 pg/mL (<450)
[2021-02-13 09:10] LABS: Carbon Dioxide 37 mmol/L (22-32)
== END ==
PROVIDERS: Visit Provider Nurse Practitioner Family
DX: I50.9 Heart failure, unspecified (principal); Z79.899 Other long term (current) drug therapy
CPT/HCPCS: 36415; 80048; 83880

== ENCOUNTER 2021-02-14 14:57 | Observation (INO) | payer MEDICARE, SELFPAY ==
[2020-09-28 04:50] VITALS: BMI 42.5
[2021-02-14] VITALS (60 sets, daily range): BP systolic 92–145; BP diastolic 49–88; PULSE 50–62; RESP 10–35; TEMP 31–37.1; O2SAT 78–95; BMI 43.9
--- NOTE | 2021-02-14 15:17 | DI.RAD.S_ITS ---
PROCEDURE: XR CHEST 1V INDICATIONS: suspected sepsis TECHNIQUE: One view of the chest was acquired. COMPARISON: [facility], CR, XR CHEST 1V, 09/27/2020, 23:51. FINDINGS: Surgical changes and devices: None. Lungs and pleura: Minimal appearance of coarsened right basilar opacities. Mediastinum: Mediastinal contours appear normal. Heart size is enlarged. Bones and chest wall: No suspicious bony lesions. Overlying soft tissues appear unremarkable. IMPRESSION: Minimal coarsened right basilar opacity. While this could represent dependent change, developing pneumonia and/or atelectasis cannot be excluded. Dictated by: Mila Mantilla M.D. on 02/14/2021 at 16:22 Approved by: Mila Mantilla M.D. on 02/14/2021 at 16:23
[2021-02-14 15:27] LABS: Add Manual Diff / Slide Review NO; Basophils Absolute Auto 100 /uL (0-100); Basophils Percent Auto 0.5 % (0-2); Eosinophils Absolute Auto 200 /uL (0-450); Eosinophils Percent Auto 1.3 % (2-4); Hematocrit 39.3 % (36-46); Hemoglobin 12.5 g/dL (12.0-16.0); Lymphocytes Absolute Auto 900 /uL (1100-4500); Lymphocytes Percent Auto 7.6 % (25-40); Mean Corpuscular HGB Conc 31.9 % (30-36); Mean Corpuscular Volume 93.8 fL (80-100); Monocytes Absolute Auto 600 /uL (0-900); Monocytes Percent Auto 4.8 % (3-14); Neutrophils Absolute Auto 10200 /uL (1500-7000); Neutrophils Percent Auto 85.8 % (50-75); Platelet Count 189 X10^3/uL (150-400); Red Blood Cell Count 4.19 X10^6/uL (4.0-5.2); Red Cell Distribution Width 14.6 % (11.6-14.8); White Blood Cell Count 11.9 X10^3/uL (4.5-11.0)
[2021-02-14 15:28] LABS: INR 1.1 (0.9-1.3); Prothrombin Time 12.1 SECONDS (10.1-12.7)
[2021-02-14 15:31] LABS: PTT Partial Thromboplastin Tim 27 SECONDS (26.4-36.2)
[2021-02-14 15:33] LABS: Lactate (Lactic Acid) 2.6 mmol/L (0.7-2.1)
[2021-02-14 15:34] LABS: Alanine Aminotransferase 24 IU/L (<35); Albumin 3.6 g/dL (3.5-5.0); Albumin Globulin Ratio 1.2 (1.0-2.8); Alkaline Phosphatase 25 U/L (38-126); Aspartate Aminotransferase 33 IU/L (14-36); BUN Creatinine Ratio 30.5 (6-22); Bilirubin Total 0.5 mg/dL (0.2-1.3); Blood Urea Nitrogen 32 mg/dL (7-17); Calcium 8.9 mg/dL (8.4-10.2); Chloride 94 mmol/L (98-107); Creatine Kinase 28 U/L (30-135); Estimated Glomerular Filt Rate 49.8 mL/min (>60); Globulin 3.1 g/dL (1.7-4.1); Glucose 303 mg/dL (80-110); HEMOLYSIS 15 (0-50); Lipase 63 U/L (23-300); Potassium 4.9 mmol/L (3.4-5.1); Sodium 138 mmol/L (137-145); Total Protein 6.7 g/dL (6.3-8.2)
[2021-02-14 15:37] LABS: pH ABG 7.38 (7.35-7.45)
[2021-02-14 15:38] LABS: Fractionated Inspired Oxygen 3; HCO3 ABG 41 mmol/L (22-26); Oxygen Saturation ABG 92 % (95-100); PCO2 ABG 69.9 mmHg (35-45); PO2 ABG 70 mmHg (80-100); TCO2 ABG 43 mmol/L (21-31)
[2021-02-14 15:40] LABS: Carbon Dioxide 38 mmol/L (22-32)
--- NOTE | 2021-02-14 15:43 | PC.NURSE ---
400 cc out initially.
--- NOTE | 2021-02-14 15:45 | ED.GENADULT ---
HPI - General Adult General Chief complaint: Altered Mental Status Stated complaint: Decreased LOC Time Seen by Provider: 02/14/21 15:31 Source: patient and EMS Mode of arrival: EMS Limitations: no limitations History of Present Illness HPI narrative: Patient is an 85-year-old female who arrived by EMS for evaluation of worsening shortness of breath and decreased level of consciousness. EMS was called from the nursing staff at the facility where she is staying. She does have a recent history of COVID-19 pneumonia back in September this year. She was admitted to the hospital for this. Subsequently discharged home after recovery. She is a DNR/DNI with comfort measures only. Her PLOST his at bedside stating this. Upon arrival patient was hypoxic to the mid 80s at her normal oxygen level at the living facility. She initially stated that she had no complaints although she did state that she generally was not feeling very well but she thinks this is because everyone was telling her that she was sick. She did not report any shortness of breath. Related Data Home Medications Medication Instructions Recorded Confirmed Atrovent HFA 2 puff INHALATION QID PRN 08/28/20 02/14/21 Humira Pen 40 mg SUBCUT Q2W 08/28/20 02/14/21 Spiriva with HandiHaler 1 cap INHALATION DAILY 08/28/20 09/28/20 acetaminophen [Tylenol] 650 mg PO BID 08/28/20 02/14/21 albuterol sulfate [ProAir HFA] 1 inh INHALATION PRN PRN 08/28/20 02/14/21 citalopram 10 mg PO DAILY 08/28/20 02/14/21 dapsone 100 mg PO DAILY 08/28/20 02/14/21 fluticasone propion-salmeterol 1 inh INHALATION Q12H 08/28/20 02/14/21 furosemide 60 mg PO DAILY 08/28/20 02/14/21 insulin lispro [Humalog KwikPen See Rx Instructions .ROUTE .COMPLEX 08/28/20 02/14/21 Insulin] ketoconazole 1 applic TOPICAL BID PRN 08/28/20 09/28/20 ketoconazole 1 applic TOPICAL Q2D 08/28/20 09/28/20 melatonin 3 mg PO BEDTIME 08/28/20 09/28/20 olanzapine 5 mg PO BEDTIME 08/28/20 09/28/20 ondansetron 4 mg PO Q4H PRN 08/28/20 09/28/20 simvastatin 20 mg PO DAILY 08/28/20 09/28/20 Lantus Solostar U-100 Insulin 20 unit SUBCUT BID 09/28/20 09/28/20 aspirin 81 mg PO DAILY 09/28/20 02/14/21 docusate sodium [Colace] 200 mg PO DAILY 02/14/21 02/14/21 prednisone 20 mg PO DAILY 02/14/21 02/14/21 Previous Rx's Medication Instructions Recorded guaifenesin [Mucus Relief ER] 1,200 mg PO Q12HR PRN #30 tab 08/30/20 Allergies Allergy/AdvReac Type Severity Reaction Status Date / Time gabapentin [GABAPENTIN] Allergy Unknown DIZZINESS Verified 02/14/21 15:21 NSAIDS (Non-Steroidal Allergy Unknown ADVISED TO Verified 02/14/21 15:21 Anti-Inflamma AVOID [NSAIDS (NON-STEROIDAL ANTI-INFLAMMA] Review of Systems Constitutional Constitutional: Denies fever(s) and Denies headache(s) ENT Ears, Nose, Mouth, and Throat: Denies headache(s) Cardiovascular Cardiovascular: Denies chest pain and Denies dyspnea Respiratory Respiratory: Denies dyspnea Gastrointestinal Gastrointestinal: Denies abdominal pain, Denies nausea and Denies vomiting Genitourinary Genitourinary: Denies dysuria Genitourinary: Denies dysuria Musculoskeletal Musculoskeletal: Reports system reviewed and no additional complaints, except as documented Integumentary/Breasts Skin/Breast: Denies rash Neurologic Neurologic: Reports confusion (Per nursing staff at facility) and Denies headache(s) Psychiatric Psychiatric: Reports confusion (Per nursing staff at facility) Endocrine Endocrine: Reports system reviewed and no additional complaints, except as documented Hematologic/Lymphatic On Anticoagulants: No Allergic/Immunologic Allergic/Immunologic: Reports system reviewed and no additional complaints, except as documented Patient History Medical History Cerebral microvascular disease COPD (chronic obstructive pulmonary disease) COVID-19 Dementia Diabetes Insomnia Peripheral neuropathy Psoriasis Venous stasis of both lower extremities Surgical History (Updated 09/28/20 @ 04:50 by KAROLINE Reed) Surgical history unknown Social History household members: caregiver Smoking Status: Former smoker Smoking Status: Former smoker tobacco type: cigarettes alcohol intake frequency: 0-2 drinks per day Substance Use Type: does not use Exam Initial Vital Signs Initial Vital Signs: Vital Signs Temperature 98.8 F 02/14/21 14:55 Pulse Rate 62 02/14/21 14:55 Respiratory Rate 27 H 02/14/21 14:55 Blood Pressure 144/88 H 02/14/21 14:55 Pulse Oximetry 84 L 02/14/21 14:55 Const General: ill appearing HENMT Head: normal to inspection and normocephalic Eyes General: appearance normal, both eyes and all related structures Chest Chest: No tenderness Resp Effort & Inspection: labored and tachypneic Auscultation: diminished lung sounds Cardio Rate: regular rate Rhythm: regular rhythm GI Inspection: non-distended Palpation: soft Skin Lesions: no lesions Rashes: no rashes Neuro General: patient alert, patient awake, oriented (Person and place) and moves all extremities Extrem General: normal to inspection Psych Appearance: well kempt Course Orders Ordered: ED Orders 02/14/21 15:12 Complete Blood Count AUTO DIFF Stat Comprehensive Metabolic Panel Stat Lactate (Lactic Acid) Stat Lipase Stat NT-proBNP (BNP-Adult 18+) Stat Partial Thromboplastin Time Stat Procalcitonin Stat Prothrombin Time INR Stat Troponin & CK Cardiac Panel Stat 02/14/21 15:17 XR chest 1V Stat ABG [Arterial Blood Gas] Stat EKG-12 Lead Stat RT Consult Eval and Treat Now 02/14/21 15:23 Arterial Blood Gas Stat 02/14/21 15:24 COVID19 -Nasal swab/Pre-Proc Stat Respiratory Panel (Film Array) Stat Sputum Culture Stat 02/14/21 15:33 Blood Culture Stat 02/14/21 15:40 Urinalysis and Microscopic Stat 02/14/21 15:47 BiPAP Ventilatory Support RT PROTOCOL 02/14/21 17:12 Arterial Blood Gas Routine Dextrose (Dextrose 50 % In Water 25 Gm/50 Ml Syringe) 25 gm IV PRN PRN PRN Reason: Hypoglycemia Lactated Ringer's (Lactated Ringers) 1,000 mls @ 60 mls/hr IV CONT HEDY Insulin Glargine (Insulin Glargine 100 Unit/Ml 3ml Pen) 20 unit SUBCUT BID HEDY Insulin Human Lispro (Insulin Lispro 100 Unit/Ml 3ml Vial) 0 unit SUBCUT ACHS HEDY; Protocol Naloxone HCl (Naloxone 0.4 Mg/Ml Vial) 0.2 mg IV Q2MIN PRN PRN Reason: Opiate Reversal Discontinued Medications Levofloxacin (Levaquin) 750 mg in 150 mls @ 100 mls/hr IV NOW ONE Stop: 02/14/21 17:11 Last Infusion: 02/14/21 17:34 Dose: 0 mls/hr Documented by: Admin: 02/14/21 15:49 Dose: 100 mls/hr Documented by: ANNAMARIE Methylprednisolone (Methylprednisolone 125 Mg/2 Ml Vial) 125 mg IV NOW ONE Stop: 02/14/21 15:43 Last Admin: 02/14/21 15:49 Dose: 125 mg Documented by: ANNAMARIE Vital Signs Vital signs: Vital Signs - 8 hr 02/14/21 14:55 02/14/21 15:15 02/14/21 15:30 Temperature 98.8 F Pulse Rate 62 57 L 56 L Respiratory Rate 27 H 22 24 Blood Pressure 144/88 H Pulse Oximetry 84 L 87 L 90 L 02/14/21 15:43 02/14/21 15:45 02/14/21 15:46 Temperature Pulse Rate 55 L 55 L 55 L Respiratory Rate 19 22 24 Blood Pressure 94/50 L 96/55 L 97/54 L Pulse Oximetry 87 L 87 L 86 L 02/14/21 15:50 02/14/21 16:00 02/14/21 16:01 Temperature Pulse Rate 56 L 52 L 54 L Respiratory Rate 28 H 27 H 29 H Blood Pressure 92/51 L 115/56 L Pulse Oximetry 88 L 91 91 02/14/21 16:10 02/14/21 16:15 02/14/21 16:20 Temperature Pulse Rate 55 L 55 L 56 L Respiratory Rate 29 H 35 H Blood Pressure 114/56 L 113/54 L Pulse Oximetry 91 90 L 95 02/14/21 16:30 02/14/21 16:40 02/14/21 16:45 Temperature Pulse Rate 56 L 54 L 54 L Respiratory Rate Blood Pressure 110/54 L 106/53 L Pulse Oximetry 94 92 92 02/14/21 16:50 02/14/21 16:59 02/14/21 17:00 Temperature Pulse Rate 54 L 55 L Respiratory Rate Blood Pressure 109/54 L 103/53 L 114/57 L Pulse Oximetry 89 L 92 02/14/21 17:11 02/14/21 17:15 02/14/21 17:20 Temperature Pulse Rate 55 L 54 L 54 L Respiratory Rate Blood Pressure 93/49 L 103/53 L Pulse Oximetry 93 92 92 02/14/21 17:30 02/14/21 17:43 02/14/21 17:45 Temperature Pulse Rate 55 L 54 L Respiratory Rate Blood Pressure 110/55 L 133/63 Pulse Oximetry 84 L 86 L 02/14/21 17:50 02/14/21 18:00 02/14/21 18:10 Temperature Pulse Rate 54 L 54 L 54 L Respiratory Rate 26 H Blood Pressure 132/62 141/59 H 126/59 L Pulse Oximetry 89 L 92 91 02/14/21 18:15 02/14/21 18:20 02/14/21 18:30 Temperature Pulse Rate 54 L 52 L 55 L Respiratory Rate Blood Pressure 136/59 L 128/59 L Pulse Oximetry 88 L 90 L 91 02/14/21 18:40 02/14/21 18:45 02/14/21 18:50 Temperature Pulse Rate 53 L 53 L 54 L Respiratory Rate 26 H Blood Pressure 127/58 L 131/62 Pulse Oximetry 92 78 L 02/14/21 19:00 02/14/21 19:10 02/14/21 19:15 Temperature Pulse Rate 54 L 54 L 54 L Respiratory Rate Blood Pressure 131/63 127/58 L Pulse Oximetry 92 93 93 02/14/21 19:20 02/14/21 19:30 02/14/21 19:40 Temperature Pulse Rate 54 L 54 L 55 L Respiratory Rate Blood Pressure 131/63 139/64 133/60 Pulse Oximetry 93 92 92 02/14/21 19:45 02/14/21 19:50 Temperature Pulse Rate 55 L 55 L Respiratory Rate Blood Pressure 145/65 H Pulse Oximetry 92 92 Medical Decision Making Medical Records Medical records reviewed: Yes I reviewed the patient's medical records. Lab Data Lab results reviewed: Yes I reviewed the patient's lab results. Result diagrams: 02/14/21 15:12 02/14/21 15:12 Labs: Lab Results 02/14/21 02/14/21 02/14/21 Range/Units 15:12 15:12 15:12 WBC 11.9 H (4.5-11.0) X10^3/uL RBC 4.19 (4.0-5.2) X10^6/uL Hgb 12.5 (12.0-16.0) g/dL Hct 39.3 (36-46) % MCV 93.8 (80-100) fL MCH 30.0 (26-34) PG MCHC 31.9 (30-36) % RDW 14.6 (11.6-14.8) % Plt Count 189 (150-400) X10^3/uL Neut % (Auto) 85.8 H (50-75) % Lymph % (Auto) 7.6 L (25-40) % [place] % (Auto) 4.8 (3-14) % Eos % (Auto) 1.3 L (2-4) % Baso % (Auto) 0.5 (0-2) % Neut # (Auto) 58518 H (2938-2804) /uL Lymph # (Auto) 900 L (9474-9520) /uL [place] # (Auto) 600 (0-900) /uL Eos # (Auto) 200 (0-450) /uL Baso # (Auto) 100 (0-100) /uL PT 12.1 (10.1-12.7) SECONDS INR 1.1 (0.9-1.3) APTT 27 (26.4-36.2) SECONDS ABG pH (7.35-7.45) ABG pCO2 (35-45) mmHg ABG pO2 (80-100) mmHg ABG HCO3 (22-26) mmol/L ABG Total CO2 (21-31) mmol/L ABG O2 Saturation (95-100) % ABG Base Excess (-2-2) mmol/L FiO2 Sodium 138 (137-145) mmol/L Potassium 4.9 (3.4-5.1) mmol/L Chloride 94 L (98-107) mmol/L Carbon Dioxide 38 H (22-32) mmol/L BUN 32 H (7-17) mg/dL Creatinine 1.05 H (0.52-1.04) mg/dL Estimated GFR 49.8 L (>60) mL/min BUN/Creatinine Ratio 30.5 H (6-22) Glucose 303 H D (80-110) mg/dL Lactate (0.7-2.1) mmol/L Calcium 8.9 (8.4-10.2) mg/dL Total Bilirubin 0.5 (0.2-1.3) mg/dL AST 33 (14-36) IU/L ALT 24 (<35) IU/L Alkaline Phosphatase 25 L (38-126) U/L Total Creatine Kinase 28 L (30-135) U/L CK-MB (CK-2) TNP CK-MB (CK-2) Rel Index TNP Troponin I 0.017 (0.01-0.034) ng/mL NT-Pro-B Natriuret Pep 152 (<450) pg/mL Total Protein 6.7 (6.3-8.2) g/dL Albumin 3.6 (3.5-5.0) g/dL Globulin 3.1 (1.7-4.1) g/dL Albumin/Globulin Ratio 1.2 (1.0-2.8) Lipase 63 (23-300) U/L Procalcitonin 0.17 (<0.5) ng/mL Urine Color Urine Appearance Urine pH (4.5-8.0) Ur Specific [place] (1.000-1.035) Urine Protein (Negative) Urine Glucose (UA) (Negative) g/dL Urine Ketones (NEGATIVE) Urine Occult Blood (Negative) Urine Nitrate (Negative) Urine Bilirubin (NEGATIVE) Urine Urobilinogen (0.2) E.U./dL Ur Leukocyte Esterase (NEGATIVE) Urine RBC (0-5/HPF) Urine WBC (0-5/HPF) Ur Squamous Epith Cells (0-5/HPF) Urine Bacteria (None) Ur Culture Indicated? Chlamy pneumoniae PCR (Not Detect) Adenovirus (PCR) (Not Detect) B. pertussis DNA (PCR) (Not Detecte) B.parapertussis DNA PCR (Not Detecte) Coronavirus OC43 (PCR) (Not Detect) Coronavirus HKU1 (PCR) (Not Detect) Coronavirus 229E (PCR) (Not Detect) SARS-CoV-2 (PCR) (Negative) Coronavirus NL63 (PCR) (Not Detect) Human Metapneumovir PCR (Not Detect) Influenza Type A (PCR) (Not Detect) Influenza Type B (PCR) (Not Detect) M. pneumoniae (PCR) (Not Detect) Parainfluenza 1 (PCR) (Not Detect) Parainfluenza 2 (PCR) (Not Detect) Parainfluenza 3 (PCR) (Not Detect) Parainfluenza 4 (PCR) (Not Detect) RSV (PCR) (Not Detect) Entero/Rhino (PCR) (Not Detect) 02/14/21 02/14/21 02/14/21 Range/Units 15:12 15:23 15:24 WBC (4.5-11.0) X10^3/uL RBC (4.0-5.2) X10^6/uL Hgb (12.0-16.0) g/dL Hct (36-46) % MCV (80-100) fL MCH (26-34) PG MCHC (30-36) % RDW (11.6-14.8) % Plt Count (150-400) X10^3/uL Neut % (Auto) (50-75) % Lymph % (Auto) (25-40) % [place] % (Auto) (3-14) % Eos % (Auto) (2-4) % Baso % (Auto) (0-2) % Neut # (Auto) (7934-8406) /uL Lymph # (Auto) (9844-6691) /uL [place] # (Auto) (0-900) /uL Eos # (Auto) (0-450) /uL Baso # (Auto) (0-100) /uL PT (10.1-12.7) SECONDS INR (0.9-1.3) APTT (26.4-36.2) SECONDS ABG pH 7.38 (7.35-7.45) ABG pCO2 69.9 H* (35-45) mmHg ABG pO2 70 L (80-100) mmHg ABG HCO3 41 H (22-26) mmol/L ABG Total CO2 43 H (21-31) mmol/L ABG O2 Saturation 92 L (95-100) % ABG Base Excess 16.0 H (-2-2) mmol/L FiO2 3 Sodium (137-145) mmol/L Potassium (3.4-5.1) mmol/L Chloride (98-107) mmol/L Carbon Dioxide (22-32) mmol/L BUN (7-17) mg/dL Creatinine (0.52-1.04) mg/dL Estimated GFR (>60) mL/min BUN/Creatinine Ratio (6-22) Glucose (80-110) mg/dL Lactate 2.6 H (0.7-2.1) mmol/L Calcium (8.4-10.2) mg/dL Total Bilirubin (0.2-1.3) mg/dL AST (14-36) IU/L ALT (<35) IU/L Alkaline Phosphatase (38-126) U/L Total Creatine Kinase (30-135) U/L CK-MB (CK-2) CK-MB (CK-2) Rel Index Troponin I (0.01-0.034) ng/mL NT-Pro-B Natriuret Pep (<450) pg/mL Total Protein (6.3-8.2) g/dL Albumin (3.5-5.0) g/dL Globulin (1.7-4.1) g/dL Albumin/Globulin Ratio (1.0-2.8) Lipase (23-300) U/L Procalcitonin (<0.5) ng/mL Urine Color Urine Appearance Urine pH (4.5-8.0) Ur Specific [place] (1.000-1.035) Urine Protein (Negative) Urine Glucose (UA) (Negative) g/dL Urine Ketones (NEGATIVE) Urine Occult Blood (Negative) Urine Nitrate (Negative) Urine Bilirubin (NEGATIVE) Urine Urobilinogen (0.2) E.U./dL Ur Leukocyte Esterase (NEGATIVE) Urine RBC (0-5/HPF) Urine WBC (0-5/HPF) Ur Squamous Epith Cells (0-5/HPF) Urine Bacteria (None) Ur Culture Indicated? Chlamy pneumoniae PCR (Not Detect) Adenovirus (PCR) (Not Detect) B. pertussis DNA (PCR) (Not Detecte) B.parapertussis DNA PCR (Not Detecte) Coronavirus OC43 (PCR) (Not Detect) Coronavirus HKU1 (PCR) (Not Detect) Coronavirus 229E (PCR) (Not Detect) SARS-CoV-2 (PCR) Negative (Negative) Coronavirus NL63 (PCR) (Not Detect) Human Metapneumovir PCR (Not Detect) Influenza Type A (PCR) (Not Detect) Influenza Type B (PCR) (Not Detect) M. pneumoniae (PCR) (Not Detect) Parainfluenza 1 (PCR) (Not Detect) Parainfluenza 2 (PCR) (Not Detect) Parainfluenza 3 (PCR) (Not Detect) Parainfluenza 4 (PCR) (Not Detect) RSV (PCR) (Not Detect) Entero/Rhino (PCR) (Not Detect) 02/14/21 02/14/21 02/14/21 Range/Units 15:24 15:40 17:12 WBC (4.5-11.0) X10^3/uL RBC (4.0-5.2) X10^6/uL Hgb (12.0-16.0) g/dL Hct (36-46) % MCV (80-100) fL MCH (26-34) PG MCHC (30-36) % RDW (11.6-14.8) % Plt Count (150-400) X10^3/uL Neut % (Auto) (50-75) % Lymph % (Auto) (25-40) % [place] % (Auto) (3-14) % Eos % (Auto) (2-4) % Baso % (Auto) (0-2) % Neut # (Auto) (2542-2804) /uL Lymph # (Auto) (1230-5624) /uL [place] # (Auto) (0-900) /uL Eos # (Auto) (0-450) /uL Baso # (Auto) (0-100) /uL PT (10.1-12.7) SECONDS INR (0.9-1.3) APTT (26.4-36.2) SECONDS ABG pH 7.39 (7.35-7.45) ABG pCO2 67.8 H* (35-45) mmHg ABG pO2 121 H (80-100) mmHg ABG HCO3 41 H (22-26) mmol/L ABG Total CO2 43 H (21-31) mmol/L ABG O2 Saturation 98 (95-100) % ABG Base Excess 16.0 H (-2-2) mmol/L FiO2 40 Sodium (137-145) mmol/L Potassium (3.4-5.1) mmol/L Chloride (98-107) mmol/L Carbon Dioxide (22-32) mmol/L BUN (7-17) mg/dL Creatinine (0.52-1.04) mg/dL Estimated GFR (>60) mL/min BUN/Creatinine Ratio (6-22) Glucose (80-110) mg/dL Lactate (0.7-2.1) mmol/L Calcium (8.4-10.2) mg/dL Total Bilirubin (0.2-1.3) mg/dL AST (14-36) IU/L ALT (<35) IU/L Alkaline Phosphatase (38-126) U/L Total Creatine Kinase (30-135) U/L CK-MB (CK-2) CK-MB (CK-2) Rel Index Troponin I (0.01-0.034) ng/mL NT-Pro-B Natriuret Pep (<450) pg/mL Total Protein (6.3-8.2) g/dL Albumin (3.5-5.0) g/dL Globulin (1.7-4.1) g/dL Albumin/Globulin Ratio (1.0-2.8) Lipase (23-300) U/L Procalcitonin (<0.5) ng/mL Urine Color Yellow Urine Appearance Clear Urine pH 6.0 (4.5-8.0) Ur Specific [place] 1.020 (1.000-1.035) Urine Protein Negative (Negative) Urine Glucose (UA) 1+ H (Negative) g/dL Urine Ketones Negative (NEGATIVE) Urine Occult Blood Negative (Negative) Urine Nitrate Negative (Negative) Urine Bilirubin Negative (NEGATIVE) Urine Urobilinogen 0.2 (0.2) E.U./dL Ur Leukocyte Esterase Negative (NEGATIVE) Urine RBC None seen (0-5/HPF) Urine WBC 0-1/hpf (0-5/HPF) Ur Squamous Epith Cells 0-1 /hpf (0-5/HPF) Urine Bacteria None seen (None) Ur Culture Indicated? Cult not indicated Chlamy pneumoniae PCR Not detected (Not Detect) Adenovirus (PCR) Not detected (Not Detect) B. pertussis DNA (PCR) Not detected (Not Detecte) B.parapertussis DNA PCR Not detected (Not Detecte) Coronavirus OC43 (PCR) Not detected (Not Detect) Coronavirus HKU1 (PCR) Not detected (Not Detect) Coronavirus 229E (PCR) Not detected (Not Detect) SARS-CoV-2 (PCR) Not detected (Negative) Coronavirus NL63 (PCR) Not detected (Not Detect) Human Metapneumovir PCR Not detected (Not Detect) Influenza Type A (PCR) Not detected (Not Detect) Influenza Type B (PCR) Not detected (Not Detect) M. pneumoniae (PCR) Not detected (Not Detect) Parainfluenza 1 (PCR) Not detected (Not Detect) Parainfluenza 2 (PCR) Not detected (Not Detect) Parainfluenza 3 (PCR) Not detected (Not Detect) Parainfluenza 4 (PCR) Not detected (Not Detect) RSV (PCR) Not detected (Not Detect) Entero/Rhino (PCR) Not detected (Not Detect) 02/14/21 Range/Units 17:42 WBC (4.5-11.0) X10^3/uL RBC (4.0-5.2) X10^6/uL Hgb (12.0-16.0) g/dL Hct (36-46) % MCV (80-100) fL MCH (26-34) PG MCHC (30-36) % RDW (11.6-14.8) % Plt Count (150-400) X10^3/uL Neut % (Auto) (50-75) % Lymph % (Auto) (25-40) % [place] % (Auto) (3-14) % Eos % (Auto) (2-4) % Baso % (Auto) (0-2) % Neut # (Auto) (5335-2541) /uL Lymph # (Auto) (8779-9057) /uL [place] # (Auto) (0-900) /uL Eos # (Auto) (0-450) /uL Baso # (Auto) (0-100) /uL PT (10.1-12.7) SECONDS INR (0.9-1.3) APTT (26.4-36.2) SECONDS ABG pH (7.35-7.45) ABG pCO2 (35-45) mmHg ABG pO2 (80-100) mmHg ABG HCO3 (22-26) mmol/L ABG Total CO2 (21-31) mmol/L ABG O2 Saturation (95-100) % ABG Base Excess (-2-2) mmol/L FiO2 Sodium (137-145) mmol/L Potassium (3.4-5.1) mmol/L Chloride (98-107) mmol/L Carbon Dioxide (22-32) mmol/L BUN (7-17) mg/dL Creatinine (0.52-1.04) mg/dL Estimated GFR (>60) mL/min BUN/Creatinine Ratio (6-22) Glucose (80-110) mg/dL Lactate 2.3 H (0.7-2.1) mmol/L Calcium (8.4-10.2) mg/dL Total Bilirubin (0.2-1.3) mg/dL AST (14-36) IU/L ALT (<35) IU/L Alkaline Phosphatase (38-126) U/L Total Creatine Kinase (30-135) U/L CK-MB (CK-2) CK-MB (CK-2) Rel Index Troponin I (0.01-0.034) ng/mL NT-Pro-B Natriuret Pep (<450) pg/mL Total Protein (6.3-8.2) g/dL Albumin (3.5-5.0) g/dL Globulin (1.7-4.1) g/dL Albumin/Globulin Ratio (1.0-2.8) Lipase (23-300) U/L Procalcitonin (<0.5) ng/mL Urine Color Urine Appearance Urine pH (4.5-8.0) Ur Specific [place] (1.000-1.035) Urine Protein (Negative) Urine Glucose (UA) (Negative) g/dL Urine Ketones (NEGATIVE) Urine Occult Blood (Negative) Urine Nitrate (Negative) Urine Bilirubin (NEGATIVE) Urine Urobilinogen (0.2) E.U./dL Ur Leukocyte Esterase (NEGATIVE) Urine RBC (0-5/HPF) Urine WBC (0-5/HPF) Ur Squamous Epith Cells (0-5/HPF) Urine Bacteria (None) Ur Culture Indicated? Chlamy pneumoniae PCR (Not Detect) Adenovirus (PCR) (Not Detect) B. pertussis DNA (PCR) (Not Detecte) B.parapertussis DNA PCR (Not Detecte) Coronavirus OC43 (PCR) (Not Detect) Coronavirus HKU1 (PCR) (Not Detect) Coronavirus 229E (PCR) (Not Detect) SARS-CoV-2 (PCR) (Negative) Coronavirus NL63 (PCR) (Not Detect) Human Metapneumovir PCR (Not Detect) Influenza Type A (PCR) (Not Detect) Influenza Type B (PCR) (Not Detect) M. pneumoniae (PCR) (Not Detect) Parainfluenza 1 (PCR) (Not Detect) Parainfluenza 2 (PCR) (Not Detect) Parainfluenza 3 (PCR) (Not Detect) Parainfluenza 4 (PCR) (Not Detect) RSV (PCR) (Not Detect) Entero/Rhino (PCR) (Not Detect) Imaging Data Chest x-ray: Radiologist's Impression: [address] [id number] ReportSigned Patient: Rosalina Stock#: [id number]: 5Acct:[id number]/Sex: 85 / FDate of Service: 02/14/21Loc: EDAccession Number: [id number] Procedure: XR chest 1V Ordering Provider: Elpidio Velazquez D.O. PROCEDURE: XR CHEST 1V INDICATIONS: suspected sepsis TECHNIQUE: One view of the chest was acquired. COMPARISON: [facility], , XR CHEST 1V, 09/27/2020, 23:51. FINDINGS: Surgical changes and devices: None. Lungs and pleura: Minimal appearance of coarsened right basilar opacities. Mediastinum: Mediastinal contours appear normal. Heart size is enlarged. Bones and chest wall: No suspicious bony lesions. Overlying soft tissues appear unremarkable. IMPRESSION: Minimal coarsened right basilar opacity. While this could represent dependent change, developing pneumonia and/or atelectasis cannot be excluded. Dictated by: Mila Mantilla M.D. on 02/14/2021 at 16:22 Approved by: Mila Mantilla M.D. on 02/14/2021 at 16:23 ECG Data Attestation: I personally reviewed and interpreted this ECG as follows: Prior ECG tracings: not available for review Interpretation: Sinus rhythm Ventricular rate of 56 Normal QRS QTC [address] T wave changes MDM Narrative Medical decision making narrative: Patient hypoxic upon arrival. Has a history of COPD. Has had an increased sputum production. Was given steroids and antibiotics. Was placed on a non-rebreather due to continued hypoxia. She was then transitioned to BiPAP. Her oxygen saturations improved. CO2 and an ABG was 70. I do suspect that she is a chronic CO2 retainer given her pH being 7.3. She tolerated BiPAP well. Initially we had no bed availability here at the hospital. I did discuss her case with Dr. Phillip andre who accepts the patient for transfer. While we were waiting for transport a bed did open up at our facility so we will admit her here. I did discuss the admission with the patient she expressed understanding and agreement. Discussed the case with LILLIAN Sheldon the [facility] provider who admit for further evaluation and treatment. Critical Care Time Critical Care Time Critical Care Time: Yes Total Critical Care Time: 35 Attestation: The high probability of a clinically significant, sudden or life threatening deterioration of the respiratory system(s) required my full and direct attention, intervention and personal management. The aggregate critical care time was [] 35 minutes. This time is in addition to time spent performing reported procedures but includes the following: [X] Data Review and interpretation [X] Patient assessment and monitoring of vital signs [X] Documentation [X] Medication orders and management Discharge Plan Departure Patient Disposition: Admitted As Inpatient Clinical Impression: COPD exacerbation Admit Date/Time: 02/14/21 19:51 Admit Provider: Devorah Sheldon
[2021-02-14 15:46] LABS: NT-proBNP (BNP-Adult 18+) 152 pg/mL (<450); Troponin I 0.017 ng/mL (0.01-0.034)
[2021-02-14] MEDS: methylPREDNISolone 125 MG/2 ML VIAL IV (15:49)
[2021-02-14] MEDS: levoFLOXacin 750 MG/150 ML PIGGYBACK 100 MG IV (15:49)
[2021-02-14 15:50] LABS: Procalcitonin 0.17 ng/mL (<0.5)
[2021-02-14 15:57] LABS: Bacteria Urine None Seen; RBC Urine None Seen (0-5/HPF)
[2021-02-14 16:01] LABS: Appearance Urine UA CLEAR; Bilirubin Urine UA NEGATIVE (NEGATIVE); Color Urine UA YELLOW; Glucose Urine UA 1+ g/dL (Negative); Ketones Urine UA NEGATIVE (NEGATIVE); Leukocyte Esterase Urine UA NEGATIVE (NEGATIVE); Nitrite Urine UA NEGATIVE (Negative); Occult Blood Urine UA NEGATIVE (Negative); Protein Urine UA NEGATIVE (Negative); Urobilinogen Urine UA 0.2 E.U./dL (0.2)
[2021-02-14 16:07] LABS: COVID19 -Nasal RAPID Negative (Negative)
[2021-02-14 16:09] LABS: Culture Indicated Urine Cult Not Indicated; Squamous Epithelial Cell Urine 0-1 /HPF (0-5/HPF); WBC Urine 0-1/HPF (0-5/HPF)
[2021-02-14 17:21] LABS: pH ABG 7.39 (7.35-7.45)
[2021-02-14 17:22] LABS: Reflexed Lactate in 2 Hours Y
[2021-02-14 17:22] LABS: Fractionated Inspired Oxygen 40; HCO3 ABG 41 mmol/L (22-26); Oxygen Saturation ABG 98 % (95-100); PCO2 ABG 67.8 mmHg (35-45); PO2 ABG 121 mmHg (80-100); TCO2 ABG 43 mmol/L (21-31)
[2021-02-14 17:38] LABS: Adenovirus Not Detected (Not Detect); B. parapertussis Not Detected (Not Detecte); Bordetella pertussis Not Detected (Not Detecte); Chlamydophila pneumoniae Not Detected (Not Detect); Coronavirus 229E Not Detected (Not Detect); Coronavirus HKU1 Not Detected (Not Detect); Coronavirus NL 63 Not Detected (Not Detect); Coronavirus OC43 Not Detected (Not Detect); Human Metapneumovirus Not Detected (Not Detect); Human Rhinovirus/Enterovirus Not Detected (Not Detect); Influenza A Not Detected (Not Detect); Influenza B Not Detected (Not Detect); Mycoplasma pneumoniae Not Detected (Not Detect); Parainfluenza Virus 1 Not Detected (Not Detect); Parainfluenza Virus 2 Not Detected (Not Detect); Parainfluenza Virus 3 Not Detected (Not Detect); Parainfluenza Virus 4 Not Detected (Not Detect); Respiratory Syncytial Virus Not Detected (Not Detect); SARS- CoV-2 Not Detected (Not Detecte)
--- NOTE | 2021-02-14 17:38 | PC.NURSE ---
SNF noted pt w/ decreased activity, increased lethargy over course of 1 week. Today had very little po intake and was noted to be falling asleep easily. a/o to place and person. Disoriented to time. Denies complaints. Falls asleep easily. has no focal weakness. BS decreased bilaterally, noted increase work of breathing w/ any exertion. pt is on home 02 3L/min. Abd obsese but soft, non tender.
[2021-02-14 18:00] LABS: Lactate 2HR (Lactic Acid Rflx) 2.3 mmol/L (0.7-2.1)
[2021-02-14 20:50] LABS: Magnesium 2.2 mg/dL (1.6-2.3)
[2021-02-14 20:51] LABS: Hemoglobin A1C% w Est Avg Glu 7.6 % (4.0-6.0)
[2021-02-14] MEDS: LACTATED RINGERS 1,000 ML 60 ML IV (20:55)
[2021-02-14] MEDS: INSULIN GLARGINE 100 UNIT/ML 3ML PEN 20 UNIT SUBCUT (21:00)
[2021-02-14] MEDS: INSULIN LISPRO 100 UNIT/ML 3ML VIAL SUBCUT (21:00)
--- NOTE | 2021-02-14 23:52 | PC.ADMIT ---
[facility] 394 Admission Note: 0 Pt arrived via gurney from ED, slide board used to assist pt to bed, monitoring equipment placed, oriented to room and call light system, blood glucose checked via finger stick found to be 355, pt currently on 3L NC with sats at 94%, VSS, no s/s of distress, bed low and locked, alarm on for safety, will continue to monitor. The patient,Chana Stock,85 y/o, was given written information regarding hospital policies, unit procedures and contact persons. Patient's smoking status: Former smoker. Vital Signs - 8 hr 02/14/21 16:00 02/14/21 16:01 02/14/21 16:10 Temperature Pulse Rate 52 L 54 L 55 L Respiratory Rate 27 H 29 H 29 H Blood Pressure 115/56 L 114/56 L Pulse Oximetry 91 91 91 02/14/21 16:15 02/14/21 16:20 02/14/21 16:30 Temperature Pulse Rate 55 L 56 L 56 L Respiratory Rate 35 H Blood Pressure 113/54 L 110/54 L Pulse Oximetry 90 L 95 94 02/14/21 16:40 02/14/21 16:45 02/14/21 16:50 Temperature Pulse Rate 54 L 54 L 54 L Respiratory Rate Blood Pressure 106/53 L 109/54 L Pulse Oximetry 92 92 89 L 02/14/21 16:59 02/14/21 17:00 02/14/21 17:11 Temperature Pulse Rate 55 L 55 L Respiratory Rate Blood Pressure 103/53 L 114/57 L 93/49 L Pulse Oximetry 92 93 02/14/21 17:15 02/14/21 17:20 02/14/21 17:30 Temperature Pulse Rate 54 L 54 L 55 L Respiratory Rate Blood Pressure 103/53 L 110/55 L Pulse Oximetry 92 92 84 L 02/14/21 17:43 02/14/21 17:45 02/14/21 17:50 Temperature Pulse Rate 54 L 54 L Respiratory Rate Blood Pressure 133/63 132/62 Pulse Oximetry 86 L 89 L 02/14/21 18:00 02/14/21 18:10 02/14/21 18:15 Temperature Pulse Rate 54 L 54 L 54 L Respiratory Rate 26 H Blood Pressure 141/59 H 126/59 L Pulse Oximetry 92 91 88 L 02/14/21 18:20 02/14/21 18:30 02/14/21 18:40 Temperature Pulse Rate 52 L 55 L 53 L Respiratory Rate 26 H Blood Pressure 136/59 L 128/59 L 127/58 L Pulse Oximetry 90 L 91 92 02/14/21 18:45 02/14/21 18:50 02/14/21 19:00 Temperature Pulse Rate 53 L 54 L 54 L Respiratory Rate Blood Pressure 131/62 131/63 Pulse Oximetry 78 L 92 02/14/21 19:10 02/14/21 19:15 02/14/21 19:20 Temperature Pulse Rate 54 L 54 L 54 L Respiratory Rate Blood Pressure 127/58 L 131/63 Pulse Oximetry 93 93 93 02/14/21 19:30 02/14/21 19:40 02/14/21 19:45 Temperature Pulse Rate 54 L 55 L 55 L Respiratory Rate Blood Pressure 139/64 133/60 Pulse Oximetry 92 92 92 02/14/21 19:50 02/14/21 20:00 02/14/21 20:10 Temperature Pulse Rate 55 L 54 L 54 L Respiratory Rate Blood Pressure 145/65 H 134/63 145/63 H Pulse Oximetry 92 92 92 02/14/21 20:15 02/14/21 20:20 02/14/21 20:30 Temperature Pulse Rate 54 L 53 L 55 L Respiratory Rate Blood Pressure 135/63 144/65 H Pulse Oximetry 92 91 91 02/14/21 20:45 02/14/21 20:56 02/14/21 21:00 Temperature 96.6 F L Pulse Rate 56 L 54 L 55 L Respiratory Rate 16 Blood Pressure 121/58 L Pulse Oximetry 92 93 92 02/14/21 21:15 02/14/21 21:30 02/14/21 21:45 Temperature Pulse Rate 50 L 51 L 51 L Respiratory Rate 20 20 20 Blood Pressure Pulse Oximetry 90 L 92 93 02/14/21 22:00 02/14/21 22:15 02/14/21 22:30 Temperature Pulse Rate 51 L 51 L 50 L Respiratory Rate 21 20 20 Blood Pressure Pulse Oximetry 93 93 93 02/14/21 22:45 02/14/21 23:00 02/14/21 23:49 Temperature 97.6 F Pulse Rate 50 L 50 L 53 L Respiratory Rate 24 18 15 Blood Pressure 144/63 H Pulse Oximetry 93 94 94
--- NOTE | 2021-02-15 02:59 | PM.HP.1 ---
History of Present Illness History of Present Illness Date Patient Seen: 02/14/21 Time Patient Seen: 20:42 Chief complaint: Decreased LOC Narrative: Patient is an 85-year-old female Chana Stock who arrived by EMS for evaluation of worsening shortness of breath and decreased level of consciousness. EMS was called from the nursing staff at the facility where she is staying. She does have a recent history of COVID-19 pneumonia Sep 2020. She was admitted to the hospital for this. Subsequently discharged home after recovery. She is a DNR/DNI with comfort measures only. Her PLOST is at bedside stating this. Upon arrival patient was hypoxic to the mid 80s at her normal oxygen level at the living facility. She initially stated that she had no complaints although she did state that she generally was not feeling very well but she thinks this is because everyone was telling her that she was sick. She did not report any shortness of breath. Patient has a history of COPD, Obesity, diabetes type 2, dementia, insomnia and psoriasis who resides at [facility]. Upon admit to the floor patient removed from BiPAP past back on nasal cannula, is sleeping comfortably without complaints of shortness of breath fatigue discomfort is setting at 94% on 3 L in no respiratory distress. Upon admit patient's vitals temp 98.8?, BP 145/65, HR 55, RR 26, O2 saturation 92% on BiPAP 4L in ED. labs WBC 11.9 with a left shift neut # 10,200, Baso:100, chloride 94 HC03 38, creatinine 1.05, glucose 3 of 3, EGFR 49.8, lactate 2.3, total creatinine kinase 28, alk-phos 25, troponin WN now, proBNP 152, procalcitonin 0.17, lipase WNL. ABGs: PH 7.39, pCO2 67.8, PO2 121, HC03 41, O2 saturation 98%, base excess 16, FiO2 40+, patient's urinalysis was negative no culture pending. CXR:Minimal coarsened right basilar opacity. While this could represent dependent change, developing pneumonia and/or atelectasis cannot be excluded. Comparison to chest x-ray 09/2020. I personally reviewed- EKG:Sinus rhythm,Vent rate 56, without ST T wave changes. Patient was admitted for acute on chronic hypoxemic respiratory failure in the setting of chronic COPD requiring BiPAP. Patient History Medical History Cerebral microvascular disease COPD (chronic obstructive pulmonary disease) COVID-19 Dementia Diabetes Insomnia Peripheral neuropathy Psoriasis Venous stasis of both lower extremities Surgical History Surgical history unknown Family & Social History Family History Other Family history unknown Social History: household members caregiver Prior Living Arrangements [facility] Skilled Nurse Facility Safety & Behavioral: Feels Safe in Current Yes Environment Been Physically Hurt or No Threatened By a Person Suicidal Ideation Description None Tobacco & Substance use: Tobacco type cigarettes Smoking Status Former smoker alcohol intake frequency 0-2 drinks per day Substance Use Type does not use Meds Home Medications and Allergies Home Medications Medication Instructions Recorded Confirmed Type Atrovent HFA 2 puff INHALATION QID PRN 08/28/20 02/14/21 History Humira Pen 40 mg SUBCUT Q2W 08/28/20 02/14/21 History Spiriva with HandiHaler 1 cap INHALATION DAILY 08/28/20 02/14/21 History acetaminophen [Tylenol] 650 mg PO BID 08/28/20 02/14/21 History albuterol sulfate [ProAir HFA] 1 inh INHALATION PRN PRN 08/28/20 02/14/21 History citalopram 10 mg PO DAILY 08/28/20 02/14/21 History dapsone 100 mg PO DAILY 08/28/20 02/14/21 History fluticasone propion-salmeterol 1 inh INHALATION Q12H 08/28/20 02/14/21 History furosemide 60 mg PO DAILY 08/28/20 02/14/21 History insulin lispro [Humalog KwikPen See Rx Instructions .ROUTE .COMPLEX 08/28/20 02/14/21 History Insulin] ketoconazole 1 applic TOPICAL Q2D 08/28/20 02/14/21 History melatonin 3 mg PO BEDTIME 08/28/20 02/14/21 History olanzapine 5 mg PO BEDTIME 08/28/20 02/14/21 History simvastatin 20 mg PO DAILY 08/28/20 02/14/21 History Lantus Solostar U-100 Insulin 20 unit SUBCUT BID 09/28/20 02/14/21 History aspirin 81 mg PO DAILY 09/28/20 02/14/21 History docusate sodium [Colace] 200 mg PO DAILY 02/14/21 02/14/21 History ondansetron HCl [Zofran] 02/14/21 History prednisone 10 mg PO DAILY 02/14/21 02/14/21 History Allergies Allergy/AdvReac Type Severity Reaction Status Date / Time gabapentin [GABAPENTIN] Allergy Unknown DIZZINESS Verified 02/14/21 15:21 NSAIDS (Non-Steroidal Allergy Unknown ADVISED TO Verified 02/14/21 15:21 Anti-Inflamma AVOID [NSAIDS (NON-STEROIDAL ANTI-INFLAMMA] Review of Systems Review of Systems ROS: Yes All systems reviewed with the patient and are negative except as otherwise documented Exam Vital Signs (past 8 hours): - 02/14/21 19:00 02/14/21 19:10 02/14/21 19:15 Temperature Pulse Rate 54 L 54 L 54 L Respiratory Rate Blood Pressure 131/63 127/58 L Pulse Oximetry 92 93 93 02/14/21 19:20 02/14/21 19:30 02/14/21 19:40 Temperature Pulse Rate 54 L 54 L 55 L Respiratory Rate Blood Pressure 131/63 139/64 133/60 Pulse Oximetry 93 92 92 02/14/21 19:45 02/14/21 19:50 02/14/21 20:00 Temperature Pulse Rate 55 L 55 L 54 L Respiratory Rate Blood Pressure 145/65 H 134/63 Pulse Oximetry 92 92 92 02/14/21 20:10 02/14/21 20:15 02/14/21 20:20 Temperature Pulse Rate 54 L 54 L 53 L Respiratory Rate Blood Pressure 145/63 H 135/63 Pulse Oximetry 92 92 91 02/14/21 20:30 02/14/21 20:45 02/14/21 20:56 Temperature 96.6 F L Pulse Rate 55 L 56 L 54 L Respiratory Rate 16 Blood Pressure 144/65 H 121/58 L Pulse Oximetry 91 92 93 02/14/21 21:00 02/14/21 21:15 02/14/21 21:30 Temperature Pulse Rate 55 L 50 L 51 L Respiratory Rate 20 20 Blood Pressure Pulse Oximetry 92 90 L 92 02/14/21 21:45 02/14/21 22:00 02/14/21 22:15 Temperature Pulse Rate 51 L 51 L 51 L Respiratory Rate 20 21 20 Blood Pressure Pulse Oximetry 93 93 93 02/14/21 22:30 02/14/21 22:45 02/14/21 23:00 Temperature Pulse Rate 50 L 50 L 50 L Respiratory Rate 20 24 18 Blood Pressure Pulse Oximetry 93 93 94 02/14/21 23:49 Temperature 97.6 F Pulse Rate 53 L Respiratory Rate 15 Blood Pressure 144/63 H Pulse Oximetry 94 Fraction of Inspired Oxygen 50 Oxygen Delivery Method Nasal Cannula Oxygen Flow Rate 3 Narrative Exam Narrative: General: Patient is a obese female, well-nourished in no distress at this time. HEENT: Normocephalic, atraumatic, extraocular muscles intact, oral pharynx is clear and mucous membranes are moist. Neck is supple and symmetric, trachea is midline, no adenopathy, no thyroid enlargement, nontender, no masses palpated. Negative for JVD Chest: no nasal flaring, retractions, or tachypneic labored Lungs: Auscultation of all lung horton are clear decreased but equal without adventitious sounds, wheezes, rhonchi, or rales. Cardio: regular rate and rhythm without murmur, rubs, or gallops, no carotid bruit, no cardiac pulsations present. Abdomen: Soft nontender, negative for organomegaly, or masses. Bowel sounds are present in all 4 quadrants without guarding or rebound, no CVA tenderness. Musculoskeletal: Muscle strength and tone are equal within normal limits, no deformity, crepitus, effusions, cyanosis, clubbing or edema present. Full range of motion intact radial and pedal pulses are normal. Skin: Warm dry and intact without rashes, ulcerations or petechiae. Neuro: Alert and orientated x3, sensation to touch intact, no gross deficits noted of cranial nerves. Psych: Patient has a well-kept appearance, appropriate affect. Objective Labs Result Diagrams: 02/14/21 15:12 02/14/21 15:12 Labs: Laboratory Results - last 24 hr 02/14/21 02/14/21 02/14/21 15:12 15:12 15:12 WBC 11.9 H RBC 4.19 Hgb 12.5 Hct 39.3 MCV 93.8 MCH 30.0 MCHC 31.9 RDW 14.6 Plt Count 189 Neut % (Auto) 85.8 H Lymph % (Auto) 7.6 L [place] % (Auto) 4.8 Eos % (Auto) 1.3 L Baso % (Auto) 0.5 Neut # (Auto) 19758 H Lymph # (Auto) 900 L [place] # (Auto) 600 Eos # (Auto) 200 Baso # (Auto) 100 PT 12.1 INR 1.1 APTT 27 ABG pH ABG pCO2 ABG pO2 ABG HCO3 ABG Total CO2 ABG O2 Saturation ABG Base Excess FiO2 Sodium 138 Potassium 4.9 Chloride 94 L Carbon Dioxide 38 H BUN 32 H Creatinine 1.05 H Estimated GFR 49.8 L BUN/Creatinine Ratio 30.5 H Glucose 303 H D Hemoglobin A1c Lactate Calcium 8.9 Magnesium Total Bilirubin 0.5 AST 33 ALT 24 Alkaline Phosphatase 25 L Total Creatine Kinase 28 L CK-MB (CK-2) TNP CK-MB (CK-2) Rel Index TNP Troponin I 0.017 NT-Pro-B Natriuret Pep 152 Total Protein 6.7 Albumin 3.6 Globulin 3.1 Albumin/Globulin Ratio 1.2 Lipase 63 Procalcitonin 0.17 Urine Color Urine Appearance Urine pH Ur Specific [place] Urine Protein Urine Glucose (UA) Urine Ketones Urine Occult Blood Urine Nitrate Urine Bilirubin Urine Urobilinogen Ur Leukocyte Esterase Urine RBC Urine WBC Ur Squamous Epith Cells Urine Bacteria Ur Culture Indicated? Nasal Screen MRSA (PCR) Chlamy pneumoniae PCR Adenovirus (PCR) B. pertussis DNA (PCR) B.parapertussis DNA PCR Coronavirus OC43 (PCR) Coronavirus HKU1 (PCR) Coronavirus 229E (PCR) SARS-CoV-2 (PCR) Coronavirus NL63 (PCR) Human Metapneumovir PCR Influenza Type A (PCR) Influenza Type B (PCR) M. pneumoniae (PCR) Parainfluenza 1 (PCR) Parainfluenza 2 (PCR) Parainfluenza 3 (PCR) Parainfluenza 4 (PCR) RSV (PCR) Entero/Rhino (PCR) 02/14/21 02/14/21 02/14/21 15:12 15:23 15:24 WBC RBC Hgb Hct MCV MCH MCHC RDW Plt Count Neut % (Auto) Lymph % (Auto) [place] % (Auto) Eos % (Auto) Baso % (Auto) Neut # (Auto) Lymph # (Auto) [place] # (Auto) Eos # (Auto) Baso # (Auto) PT INR APTT ABG pH 7.38 ABG pCO2 69.9 H* ABG pO2 70 L ABG HCO3 41 H ABG Total CO2 43 H ABG O2 Saturation 92 L ABG Base Excess 16.0 H FiO2 3 Sodium Potassium Chloride Carbon Dioxide BUN Creatinine Estimated GFR BUN/Creatinine Ratio Glucose Hemoglobin A1c Lactate 2.6 H Calcium Magnesium Total Bilirubin AST ALT Alkaline Phosphatase Total Creatine Kinase CK-MB (CK-2) CK-MB (CK-2) Rel Index Troponin I NT-Pro-B Natriuret Pep Total Protein Albumin Globulin Albumin/Globulin Ratio Lipase Procalcitonin Urine Color Urine Appearance Urine pH Ur Specific [place] Urine Protein Urine Glucose (UA) Urine Ketones Urine Occult Blood Urine Nitrate Urine Bilirubin Urine Urobilinogen Ur Leukocyte Esterase Urine RBC Urine WBC Ur Squamous Epith Cells Urine Bacteria Ur Culture Indicated? Nasal Screen MRSA (PCR) Chlamy pneumoniae PCR Adenovirus (PCR) B. pertussis DNA (PCR) B.parapertussis DNA PCR Coronavirus OC43 (PCR) Coronavirus HKU1 (PCR) Coronavirus 229E (PCR) SARS-CoV-2 (PCR) Negative Coronavirus NL63 (PCR) Human Metapneumovir PCR Influenza Type A (PCR) Influenza Type B (PCR) M. pneumoniae (PCR) Parainfluenza 1 (PCR) Parainfluenza 2 (PCR) Parainfluenza 3 (PCR) Parainfluenza 4 (PCR) RSV (PCR) Entero/Rhino (PCR) 02/14/21 02/14/21 02/14/21 15:24 15:40 17:12 WBC RBC Hgb Hct MCV MCH MCHC RDW Plt Count Neut % (Auto) Lymph % (Auto) [place] % (Auto) Eos % (Auto) Baso % (Auto) Neut # (Auto) Lymph # (Auto) [place] # (Auto) Eos # (Auto) Baso # (Auto) PT INR APTT ABG pH 7.39 ABG pCO2 67.8 H* ABG pO2 121 H ABG HCO3 41 H ABG Total CO2 43 H ABG O2 Saturation 98 ABG Base Excess 16.0 H FiO2 40 Sodium Potassium Chloride Carbon Dioxide BUN Creatinine Estimated GFR BUN/Creatinine Ratio Glucose Hemoglobin A1c Lactate Calcium Magnesium Total Bilirubin AST ALT Alkaline Phosphatase Total Creatine Kinase CK-MB (CK-2) CK-MB (CK-2) Rel Index Troponin I NT-Pro-B Natriuret Pep Total Protein Albumin Globulin Albumin/Globulin Ratio Lipase Procalcitonin Urine Color Yellow Urine Appearance Clear Urine pH 6.0 Ur Specific [place] 1.020 Urine Protein Negative Urine Glucose (UA) 1+ H Urine Ketones Negative Urine Occult Blood Negative Urine Nitrate Negative Urine Bilirubin Negative Urine Urobilinogen 0.2 Ur Leukocyte Esterase Negative Urine RBC None seen Urine WBC 0-1/hpf Ur Squamous Epith Cells 0-1 /hpf Urine Bacteria None seen Ur Culture Indicated? Cult not indicated Nasal Screen MRSA (PCR) Chlamy pneumoniae PCR Not detected Adenovirus (PCR) Not detected B. pertussis DNA (PCR) Not detected B.parapertussis DNA PCR Not detected Coronavirus OC43 (PCR) Not detected Coronavirus HKU1 (PCR) Not detected Coronavirus 229E (PCR) Not detected SARS-CoV-2 (PCR) Not detected Coronavirus NL63 (PCR) Not detected Human Metapneumovir PCR Not detected Influenza Type A (PCR) Not detected Influenza Type B (PCR) Not detected M. pneumoniae (PCR) Not detected Parainfluenza 1 (PCR) Not detected Parainfluenza 2 (PCR) Not detected Parainfluenza 3 (PCR) Not detected Parainfluenza 4 (PCR) Not detected RSV (PCR) Not detected Entero/Rhino (PCR) Not detected 02/14/21 02/14/21 02/14/21 17:42 17:42 20:21 WBC RBC Hgb Hct MCV MCH MCHC RDW Plt Count Neut % (Auto) Lymph % (Auto) [place] % (Auto) Eos % (Auto) Baso % (Auto) Neut # (Auto) Lymph # (Auto) [place] # (Auto) Eos # (Auto) Baso # (Auto) PT INR APTT ABG pH ABG pCO2 ABG pO2 ABG HCO3 ABG Total CO2 ABG O2 Saturation ABG Base Excess FiO2 Sodium Potassium Chloride Carbon Dioxide BUN Creatinine Estimated GFR BUN/Creatinine Ratio Glucose Hemoglobin A1c 7.6 H Lactate 2.3 H Calcium Magnesium 2.2 Total Bilirubin AST ALT Alkaline Phosphatase Total Creatine Kinase CK-MB (CK-2) CK-MB (CK-2) Rel Index Troponin I NT-Pro-B Natriuret Pep Total Protein Albumin Globulin Albumin/Globulin Ratio Lipase Procalcitonin Urine Color Urine Appearance Urine pH Ur Specific [place] Urine Protein Urine Glucose (UA) Urine Ketones Urine Occult Blood Urine Nitrate Urine Bilirubin Urine Urobilinogen Ur Leukocyte Esterase Urine RBC Urine WBC Ur Squamous Epith Cells Urine Bacteria Ur Culture Indicated? Nasal Screen MRSA (PCR) Chlamy pneumoniae PCR Adenovirus (PCR) B. pertussis DNA (PCR) B.parapertussis DNA PCR Coronavirus OC43 (PCR) Coronavirus HKU1 (PCR) Coronavirus 229E (PCR) SARS-CoV-2 (PCR) Coronavirus NL63 (PCR) Human Metapneumovir PCR Influenza Type A (PCR) Influenza Type B (PCR) M. pneumoniae (PCR) Parainfluenza 1 (PCR) Parainfluenza 2 (PCR) Parainfluenza 3 (PCR) Parainfluenza 4 (PCR) RSV (PCR) Entero/Rhino (PCR) 02/14/21 21:03 WBC RBC Hgb Hct MCV MCH MCHC RDW Plt Count Neut % (Auto) Lymph % (Auto) [place] % (Auto) Eos % (Auto) Baso % (Auto) Neut # (Auto) Lymph # (Auto) [place] # (Auto) Eos # (Auto) Baso # (Auto) PT INR APTT ABG pH ABG pCO2 ABG pO2 ABG HCO3 ABG Total CO2 ABG O2 Saturation ABG Base Excess FiO2 Sodium Potassium Chloride Carbon Dioxide BUN Creatinine Estimated GFR BUN/Creatinine Ratio Glucose Hemoglobin A1c Lactate Calcium Magnesium Total Bilirubin AST ALT Alkaline Phosphatase Total Creatine Kinase CK-MB (CK-2) CK-MB (CK-2) Rel Index Troponin I NT-Pro-B Natriuret Pep Total Protein Albumin Globulin Albumin/Globulin Ratio Lipase Procalcitonin Urine Color Urine Appearance Urine pH Ur Specific [place] Urine Protein Urine Glucose (UA) Urine Ketones Urine Occult Blood Urine Nitrate Urine Bilirubin Urine Urobilinogen Ur Leukocyte Esterase Urine RBC Urine WBC Ur Squamous Epith Cells Urine Bacteria Ur Culture Indicated? Nasal Screen MRSA (PCR) Negative for mrsa Chlamy pneumoniae PCR Adenovirus (PCR) B. pertussis DNA (PCR) B.parapertussis DNA PCR Coronavirus OC43 (PCR) Coronavirus HKU1 (PCR) Coronavirus 229E (PCR) SARS-CoV-2 (PCR) Coronavirus NL63 (PCR) Human Metapneumovir PCR Influenza Type A (PCR) Influenza Type B (PCR) M. pneumoniae (PCR) Parainfluenza 1 (PCR) Parainfluenza 2 (PCR) Parainfluenza 3 (PCR) Parainfluenza 4 (PCR) RSV (PCR) Entero/Rhino (PCR) Assessment & Plan Assessment & Plan narrative: This patient requires inpatient hospital management for acute on chronic hypoxemic hypercarbic respiratory failure in the setting of chronic COPD, requiring BiPAP in the ED after failing outpatient management. The patient is at much higher risk for medical and surgical complications because of her history of COPD, Obesity, diabetes type 2, dementia, CHF, and insomnia. These factors increase the difficulty and complexity of medical and surgical interventions and increases the chances of poor outcomes such as morbidity and mortality. The patient's morbid Obesity will impact her oxygenation, which will likely contributes to her chronic CO2 retainer and pCO2 is in the 50s and 60s. Patient's expected length of stay to be no greater than 2 midnights. 1. Hypoxemic and hypercarbic respiratory failure, acute on chronic, present on admission in the setting of COPD/emphysema, acute on chronic, present on admission, CHF, chronic, exacerbation not present on admission. -patient with increased work of breathing in ED requiring additional BiPAP after failing her baseline oxygen 2 L at her care center. Though upon getting to the floor patient was transitioned back to nasal cannula and O2 saturation in the 90s on 3L and sleeping without distress. Suspect end-stage interstitial lung disease, -possible acute on chronic, verses end-stage interstitial lung disease, COPD exacerbation. -decompensation likely multifactorial: COPD exacerbation-long history of emphysema on home O2 at 2 liters/minute. Congestive heart failure-patient with not elevated BNP 152, lung sounds clear but equally decrease on auscultation. -patient is in no acute distress will continue nasal cannula oxygen and titrate to O2 saturation of 88 to 92%. -requested respiratory therapy to consult evaluate treat. -monitor for central, neuromuscular, and thoracic cage disorders -a.m. labs ordered pro BNP, magnesium, CBC, CMP, PT/PTT, Repeat ABG if patient's respiratory status decompensates. -patient to be monitored on tele medicine, vital signs q.4 hours, intake and output monitored Q shift, weight measure daily, capnography if needed, neuro checks Q shift, diet: Carb. 2. Congestive heart failure with pulmonary hypertension with possible cor pulmonale secondary to chronic lung disease, acute on chronic, present on admission. Controlled. -CTA from 08/2020 identified dilated pulmonary arterie consistent with possible cor pulmonale secondary to chronic lung disease. . -no evidence of overt failure, trace pedal edema. Will continue home regimen of Lasix 60 mg daily, ProAir, Advair, prednisone, Spiriva -echocardiogram recommended on outpatient basis to determine type of HF & EF%. 3.. Chronic mild dementia with behavioral disturbance, acute on chronic, present on admission. Stable. -Patient presented with anxiety and confusion which is at patient's functional baseline. -Continue Celexa, melatonin 4. Insulin-dependent Diabetes mellitus type 2 secondary to hyperlipidemia, acute on chronic, present on admission. Uncontrolled -glucose on admission is 303. -Hemoglobin A1c on prior admission was 6.4%, today 7.6%- worsening control. -order glucose checks a.c. and hs with med dose correctional scale insulin and Lantus -will hold patient's simvastatin as we no longer carry this medication in the pharmacy. -carbohydrate consistent diet. 5. Morbid obesity as evidence by a BMI of 43.9, acute on chronic, present on admission -consideration will be given to dietary counseling Code status: DNR/DNI Surrogate decisionmaker:son Chuck Block who holds DPOA-POLST 08/12/2019 COVID PCR: Negative VTE/DVT prophylaxis: [id number] & SCD's Scores GCS [place] coma scale eye opening: Spontaneous [place] coma scale verbal response: Confused [place] coma scale motor response: Obey commands [place] coma scale total score: 14 Wells' Criteria for PE Clinical signs and symptoms of DVT: No PE is #1 Dx or equally likely: No Heart rate > 100: No Immobilization at least 3 days or surg in previous 4 weeks: Yes History of PE or DVT: No Hemoptysis: No Malignancy w/Treatment within 6 months or palliative: No Wells' PE Score total: 1.5 Quality VTE Deep Vein Thrombosis/Pulmonary Embolism Present on Admission: No MIPS - Admit I confirm the patient?s Advance Care Plan is present, Code status is documented, Surrogate decision maker is in patient?s record [If Yes, STOP here]: Yes
[2021-02-15 05:29] VITALS: BP 124/61; PULSE 54; RESP 17; TEMP 36.1; O2SAT 91
[2021-02-15 08:00] VITALS: BP 133/60; PULSE 55; RESP 16; TEMP 36.2; O2SAT 93
[2021-02-15 08:23] VITALS: PULSE 56; RESP 18; O2SAT 94
[2021-02-15] MEDS: BUDESONIDE 0.5 MG/2 ML NEB INH (08:23)
[2021-02-15] MEDS: ALBUTEROL 2.5 MG/3 ML NEB (ADULT) INH (08:23)
[2021-02-15] MEDS: IPRATROPIUM 0.5 MG/2.5 ML NEB INH (08:23)
--- NOTE | 2021-02-15 08:58 | P.DS_ITS ---
History of Present Illness History of Present Illness Date Patient Seen: 02/15/21 Time Patient Seen: 08:58 Chief complaint: Decreased LOC Narrative: Per Devorah Downing, TENT ASSEMBLER-: Patient is an 85-year-old female Chana Stock who arrived by EMS for evaluation of worsening shortness of breath and decreased level of consciousness. EMS was called from the nursing staff at the facility where she is staying. She does have a recent history of COVID-19 pneumonia Sep 2020. She was admitted to the hospital for this. Subsequently discharged home after recovery. She is a DNR/DNI with comfort measures only. Her PLOST is at bedside stating this. Upon arrival patient was hypoxic to the mid 80s at her normal oxygen level at the living facility. She initially stated that she had no complaints although she did state that she generally was not feeling very well but she thinks this is because everyone was telling her that she was sick. She did not report any shortness of breath. Patient has a history of COPD, Obesity, diabetes type 2, dementia, insomnia and psoriasis who resides at [facility]. Upon admit to the floor patient removed from BiPAP past back on nasal cannula, is sleeping comfortably without complaints of shortness of breath fatigue discomfort is setting at 94% on 3 L in no respiratory distress. Upon admit patient's vitals temp 98.8?, BP 145/65, HR 55, RR 26, O2 saturation 92% on BiPAP 4L in ED. labs WBC 11.9 with a left shift neut # 10,200, Baso:100, chloride 94 HC03 38, creatinine 1.05, glucose 3 of 3, EGFR 49.8, lactate 2.3, total creatinine kinase 28, alk-phos 25, troponin WN now, proBNP 152, p rocalcitonin 0.17, lipase WNL. ABGs: PH 7.39, pCO2 67.8, PO2 121, HC03 41, O2 saturation 98%, base excess 16, FiO2 40+, patient's urinalysis was negative no culture pending. CXR:Minimal coarsened right basilar opacity. While this could represent dependent change, developing pneumonia and/or atelectasis cannot be excluded. Comparison to chest x-ray 09/2020. I personally reviewed- EKG:Sinus rhythm,Vent rate 56, without ST T wave changes. Patient was admitted for acute on chronic hypoxemic respiratory failure in the setting of chronic COPD requiring BiPAP. Discharge Providers Provider Date of admission: 02/14/21 19:51 Discharge Date: 02/15/21 Discharge provider: Rico Cordova DO Summary Hospital Course Discharge Diagnosis: 1. Acute on chronic hypoxemic and hypercarbic respiratory failure, present on admission. Acute portion resolved. 2. COPD, emphysema with exacerbation, present on admission, improved 3. Chronic mild dementia with behavioral disturbance, present on admission. Stable. 4. Diabetes mellitus type 2, insulin using, chronic, present on admission. Stable. 5. Metabolic encephalopathy, improved. Hospital Course: Chana Stock is an 85-year-old female with a past medical history significant for COPD on with chronic hypoxemic and hypercapnic respiratory failure on continuous oxygen therapy 2-4 L and baseline PCO2 probably around 70, diabetes type 2, dementia, insomnia who presented to the emergency room with decreased level of consciousness [facility] and shortness of breath. Patient was initially tachypneic, and wheezing. She was reportedly in the mid 80s on her usual home amount of oxygen, which was increased to 6 L and the patient still appeared uncomfortable according to the ER provider. She was given a dose of methylprednisolone and admitted for COPD exacerbation. By the time of her arrival to the acute care floor the patient appeared comfortable, was taken off of BiPAP therapy and appeared in no respiratory distress on her usual 3 L of oxygen saturating in the mid 90s. ABG performed in the emergency room showed marked hypercarbia with a pCO2 of 69.9, however her pH was not acidotic at 7.38 and this likely represents the patient's baseline. She was monitored overnight and the following morning she was at her baseline respiratory status. Patient will continue on a pre dnisone taper for the next 3 days to complete therapy for a COPD exacerbation. She had no elevation in her troponin or proBNP to suggest a cardiac etiology at this time. Patient is stable to return to her prior facility today. Glucose on admission lab was greater than 300, however the A1c is 7.6. This may be elevated in the setting of stress. No medication changes are recommended as this is an acceptable value in this otherwise ill patient. Patient's code status with her POLST states that she is DNR DNI with limited medical interventions. Status at Discharge Cognitive/behavioral status at discharge: at baseline, confused Overall status at discharge: patient is back to baseline Exam Vital Signs (past 8 hours): - 02/15/21 05:29 02/15/21 08:00 02/15/21 08:23 Temperature 97.0 F L 97.2 F L Pulse Rate 54 L 55 L 56 L Respiratory Rate 17 16 18 Blood Pressure 124/61 133/60 Pulse Oximetry 91 93 94 Fraction of Inspired Oxygen 50 Oxygen Delivery Method Nasal Cannula Oxygen Flow Rate 3 Narrative Exam Narrative: GENERAL APPEARANCE: well developed, morbidly obese female who is chronically ill-appearing, appears comfortable on nasal cannula oxygen HEENT: PERRLA, conjunctiva clear, sclera anicteric NECK/THYROID:no thyromegaly, trachea midline. LYMPH NODES: no cervical or supraclavicular lymphadenopathy. SKIN: Pale, thin, warm and dry HEART: Bradycardic rate with regular rhythm, S1-S2, no murmur, no rubs or gallops, palpable dorsalis pedis pulses LUNGS: Breath sounds diminished bases, no wheezing, no cough present. CHEST: Symmetrical movement, no accessory muscle use, shallow tidal volume ABDOMEN: Soft, protuberant, nontender, no organomegaly the exam is limited by body habitus EXTREMITIES: no effuesions, trace edema bilaterally, non-pitting. NEUROLOGIC: AAO x person, city, and month but not year. follows simple commands, no lateralizing symptoms and cranial nerves grossly intact, sensation intact to light touch, hearing grossly normal to speech. PSYCH: Patient appears calm today, remains cooperative with stable behavior Objective Labs Result Diagrams: 02/14/21 15:12 02/14/21 15:12 Labs: Laboratory Results - last 24 hr 02/14/21 02/14/21 02/14/21 15:12 15:12 15:12 WBC 11.9 H RBC 4.19 Hgb 12.5 Hct 39.3 MCV 93.8 MCH 30.0 MCHC 31.9 RDW 14.6 Plt Count 189 Neut % (Auto) 85.8 H Lymph % (Auto) 7.6 L [place] % (Auto) 4.8 Eos % (Auto) 1.3 L Baso % (Auto) 0.5 Neut # (Auto) 32890 H Lymph # (Auto) 900 L [place] # (Auto) 600 Eos # (Auto) 200 Baso # (Auto) 100 PT 12.1 INR 1.1 APTT 27 ABG pH ABG pCO2 ABG pO2 ABG HCO3 ABG Total CO2 ABG O2 Saturation ABG Base Excess FiO2 Sodium 138 Potassium 4.9 Chloride 94 L Carbon Dioxide 38 H BUN 32 H Creatinine 1.05 H Estimated GFR 49.8 L BUN/Creatinine Ratio 30.5 H Glucose 303 H D Hemoglobin A1c Lactate Calcium 8.9 Magnesium Total Bilirubin 0.5 AST 33 ALT 24 Alkaline Phosphatase 25 L Total Creatine Kinase 28 L CK-MB (CK-2) TNP CK-MB (CK-2) Rel Index TNP Troponin I 0.017 NT-Pro-B Natriuret Pep 152 Total Protein 6.7 Albumin 3.6 Globulin 3.1 Albumin/Globulin Ratio 1.2 Lipase 63 Procalcitonin 0.17 Urine Color Urine Appearance Urine pH Ur Specific [place] Urine Protein Urine Glucose (UA) Urine Ketones Urine Occult Blood Urine Nitrate Urine Bilirubin Urine Urobilinogen Ur Leukocyte Esterase Urine RBC Urine WBC Ur Squamous Epith Cells Urine Bacteria Ur Culture Indicated? Nasal Screen MRSA (PCR) Chlamy pneumoniae PCR Adenovirus (PCR) B. pertussis DNA (PCR) B.parapertussis DNA PCR Coronavirus OC43 (PCR) Coronavirus HKU1 (PCR) Coronavirus 229E (PCR) SARS-CoV-2 (PCR) Coronavirus NL63 (PCR) Human Metapneumovir PCR Influenza Type A (PCR) Influenza Type B (PCR) M. pneumoniae (PCR) Parainfluenza 1 (PCR) Parainfluenza 2 (PCR) Parainfluenza 3 (PCR) Parainfluenza 4 (PCR) RSV (PCR) Entero/Rhino (PCR) 02/14/21 02/14/21 02/14/21 15:12 15:23 15:24 WBC RBC Hgb Hct MCV MCH MCHC RDW Plt Count Neut % (Auto) Lymph % (Auto) [place] % (Auto) Eos % (Auto) Baso % (Auto) Neut # (Auto) Lymph # (Auto) [place] # (Auto) Eos # (Auto) Baso # (Auto) PT INR APTT ABG pH 7.38 ABG pCO2 69.9 H* ABG pO2 70 L ABG HCO3 41 H ABG Total CO2 43 H ABG O2 Saturation 92 L ABG Base Excess 16.0 H FiO2 3 Sodium Potassium Chloride Carbon Dioxide BUN Creatinine Estimated GFR BUN/Creatinine Ratio Glucose Hemoglobin A1c Lactate 2.6 H Calcium Magnesium Total Bilirubin AST ALT Alkaline Phosphatase Total Creatine Kinase CK-MB (CK-2) CK-MB (CK-2) Rel Index Troponin I NT-Pro-B Natriuret Pep Total Protein Albumin Globulin Albumin/Globulin Ratio Lipase Procalcitonin Urine Color Urine Appearance Urine pH Ur Specific [place] Urine Protein Urine Glucose (UA) Urine Ketones Urine Occult Blood Urine Nitrate Urine Bilirubin Urine Urobilinogen Ur Leukocyte Esterase Urine RBC Urine WBC Ur Squamous Epith Cells Urine Bacteria Ur Culture Indicated? Nasal Screen MRSA (PCR) Chlamy pneumoniae PCR Adenovirus (PCR) B. pertussis DNA (PCR) B.parapertussis DNA PCR Coronavirus OC43 (PCR) Coronavirus HKU1 (PCR) Coronavirus 229E (PCR) SARS-CoV-2 (PCR) Negative Coronavirus NL63 (PCR) Human Metapneumovir PCR Influenza Type A (PCR) Influenza Type B (PCR) M. pneumoniae (PCR) Parainfluenza 1 (PCR) Parainfluenza 2 (PCR) Parainfluenza 3 (PCR) Parainfluenza 4 (PCR) RSV (PCR) Entero/Rhino (PCR) 02/14/21 02/14/21 02/14/21 15:24 15:40 17:12 WBC RBC Hgb Hct MCV MCH MCHC RDW Plt Count Neut % (Auto) Lymph % (Auto) [place] % (Auto) Eos % (Auto) Baso % (Auto) Neut # (Auto) Lymph # (Auto) [place] # (Auto) Eos # (Auto) Baso # (Auto) PT INR APTT ABG pH 7.39 ABG pCO2 67.8 H* ABG pO2 121 H ABG HCO3 41 H ABG Total CO2 43 H ABG O2 Saturation 98 ABG Base Excess 16.0 H FiO2 40 Sodium Potassium Chloride Carbon Dioxide BUN Creatinine Estimated GFR BUN/Creatinine Ratio Glucose Hemoglobin A1c Lactate Calcium Magnesium Total Bilirubin AST ALT Alkaline Phosphatase Total Creatine Kinase CK-MB (CK-2) CK-MB (CK-2) Rel Index Troponin I NT-Pro-B Natriuret Pep Total Protein Albumin Globulin Albumin/Globulin Ratio Lipase Procalcitonin Urine Color Yellow Urine Appearance Clear Urine pH 6.0 Ur Specific [place] 1.020 Urine Protein Negative Urine Glucose (UA) 1+ H Urine Ketones Negative Urine Occult Blood Negative Urine Nitrate Negative Urine Bilirubin Negative Urine Urobilinogen 0.2 Ur Leukocyte Esterase Negative Urine RBC None seen Urine WBC 0-1/hpf Ur Squamous Epith Cells 0-1 /hpf Urine Bacteria None seen Ur Culture Indicated? Cult not indicated Nasal Screen MRSA (PCR) Chlamy pneumoniae PCR Not detected Adenovirus (PCR) Not detected B. pertussis DNA (PCR) Not detected B.parapertussis DNA PCR Not detected Coronavirus OC43 (PCR) Not detected Coronavirus HKU1 (PCR) Not detected Coronavirus 229E (PCR) Not detected SARS-CoV-2 (PCR) Not detected Coronavirus NL63 (PCR) Not detected Human Metapneumovir PCR Not detected Influenza Type A (PCR) Not detected Influenza Type B (PCR) Not detected M. pneumoniae (PCR) Not detected Parainfluenza 1 (PCR) Not detected Parainfluenza 2 (PCR) Not detected Parainfluenza 3 (PCR) Not detected Parainfluenza 4 (PCR) Not detected RSV (PCR) Not detected Entero/Rhino (PCR) Not detected 02/14/21 02/14/21 02/14/21 17:42 17:42 20:21 WBC RBC Hgb Hct MCV MCH MCHC RDW Plt Count Neut % (Auto) Lymph % (Auto) [place] % (Auto) Eos % (Auto) Baso % (Auto) Neut # (Auto) Lymph # (Auto) [place] # (Auto) Eos # (Auto) Baso # (Auto) PT INR APTT ABG pH ABG pCO2 ABG pO2 ABG HCO3 ABG Total CO2 ABG O2 Saturation ABG Base Excess FiO2 Sodium Potassium Chloride Carbon Dioxide BUN Creatinine Estimated GFR BUN/Creatinine Ratio Glucose Hemoglobin A1c 7.6 H Lactate 2.3 H Calcium Magnesium 2.2 Total Bilirubin AST ALT Alkaline Phosphatase Total Creatine Kinase CK-MB (CK-2) CK-MB (CK-2) Rel Index Troponin I NT-Pro-B Natriuret Pep Total Protein Albumin Globulin Albumin/Globulin Ratio Lipase Procalcitonin Urine Color Urine Appearance Urine pH Ur Specific [place] Urine Protein Urine Glucose (UA) Urine Ketones Urine Occult Blood Urine Nitrate Urine Bilirubin Urine Urobilinogen Ur Leukocyte Esterase Urine RBC Urine WBC Ur Squamous Epith Cells Urine Bacteria Ur Culture Indicated? Nasal Screen MRSA (PCR) Chlamy pneumoniae PCR Adenovirus (PCR) B. pertussis DNA (PCR) B.parapertussis DNA PCR Coronavirus OC43 (PCR) Coronavirus HKU1 (PCR) Coronavirus 229E (PCR) SARS-CoV-2 (PCR) Coronavirus NL63 (PCR) Human Metapneumovir PCR Influenza Type A (PCR) Influenza Type B (PCR) M. pneumoniae (PCR) Parainfluenza 1 (PCR) Parainfluenza 2 (PCR) Parainfluenza 3 (PCR) Parainfluenza 4 (PCR) RSV (PCR) Entero/Rhino (PCR) 02/14/21 21:03 WBC RBC Hgb Hct MCV MCH MCHC RDW Plt Count Neut % (Auto) Lymph % (Auto) [place] % (Auto) Eos % (Auto) Baso % (Auto) Neut # (Auto) Lymph # (Auto) [place] # (Auto) Eos # (Auto) Baso # (Auto) PT INR APTT ABG pH ABG pCO2 ABG pO2 ABG HCO3 ABG Total CO2 ABG O2 Saturation ABG Base Excess FiO2 Sodium Potassium Chloride Carbon Dioxide BUN Creatinine Estimated GFR BUN/Creatinine Ratio Glucose Hemoglobin A1c Lactate Calcium Magnesium Total Bilirubin AST ALT Alkaline Phosphatase Total Creatine Kinase CK-MB (CK-2) CK-MB (CK-2) Rel Index Troponin I NT-Pro-B Natriuret Pep Total Protein Albumin Globulin Albumin/Globulin Ratio Lipase Procalcitonin Urine Color Urine Appearance Urine pH Ur Specific [place] Urine Protein Urine Glucose (UA) Urine Ketones Urine Occult Blood Urine Nitrate Urine Bilirubin Urine Urobilinogen Ur Leukocyte Esterase Urine RBC Urine WBC Ur Squamous Epith Cells Urine Bacteria Ur Culture Indicated? Nasal Screen MRSA (PCR) Negative for mrsa Chlamy pneumoniae PCR Adenovirus (PCR) B. pertussis DNA (PCR) B.parapertussis DNA PCR Coronavirus OC43 (PCR) Coronavirus HKU1 (PCR) Coronavirus 229E (PCR) SARS-CoV-2 (PCR) Coronavirus NL63 (PCR) Human Metapneumovir PCR Influenza Type A (PCR) Influenza Type B (PCR) M. pneumoniae (PCR) Parainfluenza 1 (PCR) Parainfluenza 2 (PCR) Parainfluenza 3 (PCR) Parainfluenza 4 (PCR) RSV (PCR) Entero/Rhino (PCR) [facility] Medical History Cerebral microvascular disease COPD (chronic obstructive pulmonary disease) COVID-19 Dementia Diabetes Insomnia Peripheral neuropathy Psoriasis Venous stasis of both lower extremities Surgical History Surgical history unknown Family History Other Family history unknown Social History household members: caregiver Smoking Status: Former smoker Discharge Plan Discharge Plan Patient Disposition: Assisted Living Transfer to: [facility] Living Provider Discharge Comment: Chana Stock is an 85-year-old female with a past medical history significant for COPD on with chronic hypoxemic and hypercapnic respiratory failure on continuous oxygen therapy 2-4 L and baseline PCO2 probably around 70, diabetes type 2, dementia, insomnia who presented to the emergency room with decreased level of consciousness according to [facility] and shortness of breath. Patient was initially tachypneic, and wheezing. She was reportedly in the mid 80s on her usual home amount of oxygen, which was increased to 6 L and the patient still appeared uncomfortable according to the ER provider. She was given a dose of methylprednisolone and admitted for COPD exacerbation. By the time of her arrival to the acute care floor the patient appeared comfortable, was taken off of BiPAP therapy and appeared in no respiratory distress on her usual 3 L of oxygen saturating in the mid 90s. ABG performed in the emergency room showed marked hypercarbia with a pCO2 of 69.9, however her pH was not acidotic at 7.38 and this likely represents the patient's baseline. She was monitored overnight and the following morning she was at her baseline respiratory status. Patient will continue on a prednisone taper for the next 3 days to complete therapy for a COPD exacerbation. She had no elevation in her troponin or proBNP to suggest a cardiac etiology at this time. Patient is stable to return to her prior facility today. Glucose on admission lab was greater than 300, however the A1c is 7.6. This may be elevated in the setting of stress. No medication changes are recommended as this is an acceptable value in this otherwise ill patient. Bo matias's code status with her POLST states that she is DNR DNI with limited medical interventions. Discharge orders & Medications Discharge Orders: Discharge (Order); Ordered 02/15/21 Ordered By: Rico Cordova Prescriptions: New prednisone 20 mg Tablet 40 mg PO DAILY 3 Days Qty: 6 RF: 0 Continued aspirin 81 mg Tablet,Chewable 81 mg PO DAILY RF: 0 Lantus Solostar U-100 Insulin 100 unit/mL (3 mL) Insulin Pen 20 unit SUBCUT BID RF: 0 furosemide 40 mg tablet 60 mg PO DAILY RF: 0 fluticasone propion-salmeterol 250-50 mcg/dose blister with device 1 inh INHALATION Q12H RF: 0 acetaminophen [Tylenol] 325 mg Tablet 650 mg PO BID RF: 0 ketoconazole 2 % shampoo 1 applic TOPICAL Q2D RF: 0 citalopram 10 mg tablet 10 mg PO DAILY RF: 0 olanzapine 5 mg tablet 5 mg PO BEDTIME RF: 0 melatonin 3 mg Tablet 3 mg PO BEDTIME RF: 0 simvastatin 20 mg tablet 20 mg PO DAILY RF: 0 dapsone 100 mg tablet 100 mg PO DAILY RF: 0 albuterol sulfate [ProAir HFA] 90 mcg/actuation Hfa Aerosol Inhaler 1 inh INHALATION PRN PRN (Reason: Shortness Of Breath) RF: 0 insulin lispro [Humalog KwikPen Insulin] 100 unit/mL insulin pen See Rx Instructions .ROUTE .COMPLEX RF: 0 Spiriva with HandiHaler 18 mcg capsule, w/inhalation device 1 cap INHALATION DAILY RF: 0 Atrovent HFA 17 mcg/actuation HFA aerosol inhaler 2 puff INHALATION QID PRN (Reason: Shortness Of Breath) RF: 0 Humira Pen 40 mg/0.8 mL pen injector kit 40 mg SUBCUT Q2W RF: 0 prednisone 20 mg Tablet 10 mg PO DAILY RF: 0 docusate sodium [Colace] 100 mg Capsule 200 mg PO DAILY RF: 0 ondansetron HCl [Zofran] 4 mg Tablet RF: 0 Diet/Activity/Treatments Diet: Diet as Tolerated and Carb-consistent/Diabetic Diet comment: Resume previous diet Activity: As tolerated Discharge Data Attending Provider: Devorah Sheldon VTE Deep Vein Thrombosis/Pulmonary Embolism Present on Admission: No
[2021-02-15] MEDS: INSULIN LISPRO 100 UNIT/ML 3ML VIAL SUBCUT (09:32)
[2021-02-15] MEDS: FUROSEMIDE 40 MG TABLET 60 MG PO (09:33)
[2021-02-15] MEDS: DOCUSATE 100 MG CAPSULE 200 MG PO (09:34)
[2021-02-15] MEDS: DAPSONE 100 MG TABLET PO (09:34)
[2021-02-15] MEDS: CITALOPRAM 10 MG TABLET PO (09:34)
[2021-02-15] MEDS: ASPIRIN 81 MG CHEW TAB PO (09:35)
[2021-02-15] MEDS: INSULIN GLARGINE 100 UNIT/ML 3ML PEN 20 UNIT SUBCUT (09:46)
--- NOTE | 2021-02-15 10:33 | CM.DANOTE ---
Discharge Planning/Care Management DCP: assessment: case received, EMR reviewed, discussed in Team Rounds with Dr. Cordova stating pt was stable to d/c back to [facility]. Met now with pt and introduced self and role. Pt confirms she lives at [facility] and that her Doron resides there also. POA is her son Chuck/Sanjeev. Pt says she is pleased that the doctor is ok'ing her to return home to [facility] today. Have spoken now with Sindhu/MARISOL and per her request faxed d/c orders and brief summary as well as face sheet to [phone]. SHOBHA Jeronimo will be in contact and will coordinate the d/c pickup time etc. all is now finalized for transport back to [facility] about 1130 via w/c with supplemental o2. SHOBHA Fairchild is updated as are pt and her POA son José Luis. Will has also spoken with SHOBHA Fairchild. CM Discharge Assessment Start: 02/15/21 10:31 Freq: Status: Active Protocol: Document 02/15/21 10:32 ITV (Rec: 02/15/21 10:33 ITV [id number]) Discharge Planning Assessment Advance Directives? Yes Advance Directives on File Yes History Provided By Patient,Medical Record Has Patient been admitted in last 30 No days? Prior Living Arrangements Assisted Living Facility Name Admitted From: [facility] Willing to Return to Facility? Yes Is patient alert and oriented? Yes Discharge Plan Assisted Living Facility Transportation Arrangement transport per [facility] staff
--- NOTE | 2021-02-15 10:47 | PC.NURSE ---
Addendum entered by Devorah Vasquez R.N. 02/15/21 11:49: IV removed x2, Tele off and D/c in w/c with caregiver to facility. Original Note: 0300 Assumed care of patient, A/o x2, forgetful at times, Phillips patent. NC @ 3L per home routine. Dime to bases, but denies any increase to SOB over baseline. Discussed POC, PO pred started for COPD exacerbation, and Update to son @ 0700, plan to d/c back to [facility] as Pt is at baseline. 1030-Phillips out, d/c order written and [facility] staff to transport via w/c. Pt updated on POC and d/c planning .
== END 2021-02-15 12:30 ==
LOC: ED 19:01 → AC 20:08 → ICU 20:58 → AC 02-15 09:40 → ICU 02-15 09:40
PROVIDERS: Admitting Provider Nurse Practitioner Family; Emergency Provider Emergency Medicine; Referring Provider Emergency Medicine; Visit Provider Nurse Practitioner Family
DX: J96.21 Acute and chronic respiratory failure with hypoxia (principal); J96.22 Acute and chronic respiratory failure with hypercapnia; F03.91 Unspecified dementia, unspecified severity, with behavioral disturbance; Z86.16 Personal history of COVID-19; J44.9 Chronic obstructive pulmonary disease, unspecified; E11.42 Type 2 diabetes mellitus with diabetic polyneuropathy; Z79.4 Long term (current) use of insulin; E66.01 Morbid (severe) obesity due to excess calories; Z68.41 Body mass index [BMI] 40.0-44.9, adult; G93.41 Metabolic encephalopathy; Z99.81 Dependence on supplemental oxygen; G47.00 Insomnia, unspecified; Z20.822 Contact with and (suspected) exposure to COVID-19
CPT/HCPCS: 36415; 36600; 51702; 71045; 80053; 81001; 82550; 82805; 82962; 83036; 83605; 83690; 83735; 83880; 84145; 84484; 85025; 85610; 85730; 87040; 87070; 87205; 87633; 87635; 87797; 93005; 94640; 94660; 96365; 96366; 96372; 96375; 99285; 99291; C9803; G0378; A9270; J1815; J1956; J2930; J7613

== ENCOUNTER → 2021-03-27 07:52 | Outpatient (ROUT) | payer MEDICARE, SELFPAY ==
[2021-02-14 18:55] VITALS: PULSE 54; RESP 25; O2SAT 91
[2021-02-14 20:30] VITALS: BMI 43.9
[2021-03-27 08:21] LABS: Add Manual Diff / Slide Review NO; Basophils Absolute Auto 100 /uL (0-100); Basophils Percent Auto 0.9 % (0-2); Eosinophils Absolute Auto 300 /uL (0-450); Eosinophils Percent Auto 2.1 % (2-4); Hematocrit 38.9 % (36-46); Hemoglobin 12.6 g/dL (12.0-16.0); Lymphocytes Absolute Auto 2200 /uL (1100-4500); Lymphocytes Percent Auto 13.6 % (25-40); Mean Corpuscular HGB Conc 32.3 % (30-36); Mean Corpuscular Hemoglobin 30.3 PG (26-34); Mean Corpuscular Volume 93.7 fL (80-100); Monocytes Absolute Auto 1200 /uL (0-900); Monocytes Percent Auto 7.9 % (3-14); Neutrophils Absolute Auto 11900 /uL (1500-7000); Neutrophils Percent Auto 75.5 % (50-75); Platelet Count 233 X10^3/uL (150-400); Red Blood Cell Count 4.15 X10^6/uL (4.0-5.2); Red Cell Distribution Width 14.3 % (11.6-14.8); White Blood Cell Count 15.8 X10^3/uL (4.5-11.0)
[2021-03-27 08:48] LABS: Hemoglobin A1C% w Est Avg Glu 6.6 % (4.0-6.0)
[2021-03-27 09:01] LABS: Alanine Aminotransferase 24 IU/L (<35); Albumin 3.8 g/dL (3.5-5.0); Albumin Globulin Ratio 1.2 (1.0-2.8); Alkaline Phosphatase 29 U/L (38-126); Aspartate Aminotransferase 28 IU/L (14-36); BUN Creatinine Ratio 21.6 (6-22); Bilirubin Total 0.7 mg/dL (0.2-1.3); Blood Urea Nitrogen 22 mg/dL (7-17); Calcium 9.2 mg/dL (8.4-10.2); Carbon Dioxide 34 mmol/L (22-32); Chloride 96 mmol/L (98-107); Estimated Glomerular Filt Rate 51.5 mL/min (>60); Globulin 3.3 g/dL (1.7-4.1); Glucose 112 mg/dL (80-110); HEMOLYSIS < 15 (0-50); Potassium 3.6 mmol/L (3.4-5.1); Sodium 138 mmol/L (137-145); Total Protein 7.1 g/dL (6.3-8.2)
[2021-03-27 09:25] LABS: Thyroid Stimulating Hormone 2.56 uIU/mL (0.47-4.68)
[2021-03-27 09:42] LABS: Vitamin B12 > 1000 pg/mL (239-931)
== END ==
PROVIDERS: Visit Provider Internal Medicine
DX: J44.9 Chronic obstructive pulmonary disease, unspecified (principal); E11.9 Type 2 diabetes mellitus without complications; R53.83 Other fatigue; R41.0 Disorientation, unspecified
CPT/HCPCS: 36415; 80053; 82607; 83036; 84443; 85025

== ENCOUNTER → 2021-03-29 11:59 | Outpatient (CLI) | payer MEDICARE, SELFPAY ==
[2021-02-14 18:55] VITALS: PULSE 54; RESP 25; O2SAT 91
[2021-02-14 20:30] VITALS: BMI 43.9
[2021-03-29 14:01] LABS: Add Manual Diff / Slide Review NO; Basophils Absolute Auto 100 /uL (0-100); Basophils Percent Auto 0.5 % (0-2); Eosinophils Absolute Auto 200 /uL (0-450); Eosinophils Percent Auto 1.7 % (2-4); Hematocrit 39.1 % (36-46); Hemoglobin 12.7 g/dL (12.0-16.0); Lymphocytes Absolute Auto 1400 /uL (1100-4500); Lymphocytes Percent Auto 12.1 % (25-40); Mean Corpuscular HGB Conc 32.5 % (30-36); Mean Corpuscular Hemoglobin 30.7 PG (26-34); Mean Corpuscular Volume 94.5 fL (80-100); Monocytes Absolute Auto 800 /uL (0-900); Monocytes Percent Auto 6.6 % (3-14); Neutrophils Absolute Auto 9100 /uL (1500-7000); Neutrophils Percent Auto 79.1 % (50-75); Platelet Count 257 X10^3/uL (150-400); Red Blood Cell Count 4.13 X10^6/uL (4.0-5.2); Red Cell Distribution Width 14.4 % (11.6-14.8); White Blood Cell Count 11.5 X10^3/uL (4.5-11.0)
[2021-03-29 14:57] LABS: BUN Creatinine Ratio 18.7 (6-22); Blood Urea Nitrogen 17 mg/dL (7-17); Calcium 9.1 mg/dL (8.4-10.2); Carbon Dioxide 31 mmol/L (22-32); Chloride 98 mmol/L (98-107); Estimated Glomerular Filt Rate 58.8 mL/min (>60); Glucose 281 mg/dL (80-110); HEMOLYSIS < 15 (0-50); Potassium 4.2 mmol/L (3.4-5.1); Sodium 139 mmol/L (137-145)
== END ==
PROVIDERS: Referring Provider Registered Nurse; Visit Provider Registered Nurse
DX: R60.9 Edema, unspecified (principal)
CPT/HCPCS: 36415; 80048; 85025

== ENCOUNTER → 2021-04-03 08:04 | Outpatient (ROUT) | payer MEDICARE, SELFPAY ==
[2021-02-14 18:55] VITALS: PULSE 54; RESP 25; O2SAT 91
[2021-02-14 20:30] VITALS: BMI 43.9
[2021-04-03 08:46] LABS: Hemoglobin A1C% w Est Avg Glu 6.3 % (4.0-6.0)
[2021-04-03 08:54] LABS: D Dimer 1565 ng/mL (<230)
== END ==
PROVIDERS: Visit Provider Nurse Practitioner Family
DX: E11.9 Type 2 diabetes mellitus without complications (principal); I82.409 Acute embolism and thrombosis of unspecified deep veins of unspecified lower extremity
CPT/HCPCS: 36415; 83036; 85379

== ENCOUNTER → 2021-04-04 14:40 | Outpatient (CLI) | payer MEDICARE, SELFPAY ==
[2021-02-14 18:55] VITALS: PULSE 54; RESP 25; O2SAT 91
[2021-02-14 20:30] VITALS: BMI 43.9
--- NOTE | 2021-04-04 | DI.US.S_ITS ---
PROCEDURE: US PERIPH VENOUS LOW EXTREM LT INDICATIONS: EDEMA TECHNIQUE: Real-time imaging, as well as color and pulse Doppler interrogation, were performed of the lower extremity deep veins from the inguinal ligament to the popliteal fossa. COMPARISON: None. FINDINGS: The common femoral, femoral and popliteal veins are normally compressible, and free of intraluminal thrombus. Color and pulse Doppler demonstrate normal phasic intraluminal flow. There is normal augmentation response to distal compression maneuver. IMPRESSION: Negative for deep venous thrombosis. Dictated by: Serjio Angel M.D. on 04/04/2021 at 15:09 Approved by: Serjio Angel M.D. on 04/04/2021 at 15:09
== END ==
PROVIDERS: PCP Nurse Practitioner Family; Referring Provider Nurse Practitioner Family; Visit Provider Nurse Practitioner Family
DX: R60.0 Localized edema (principal)
CPT/HCPCS: 93971

== ENCOUNTER → 2021-05-15 07:46 | Outpatient (ROUT) | payer MEDICARE, SELFPAY ==
[2021-02-14 18:55] VITALS: PULSE 54; RESP 25; O2SAT 91
[2021-02-14 20:30] VITALS: BMI 43.9
[2021-05-15 08:34] LABS: BUN Creatinine Ratio 25.9 (6-22); Blood Urea Nitrogen 22 mg/dL (7-17); Calcium 8.8 mg/dL (8.4-10.2); Carbon Dioxide 33 mmol/L (22-32); Chloride 104 mmol/L (98-107); Estimated Glomerular Filt Rate > 60.0 mL/min (>60); Glucose 172 mg/dL (80-110); HEMOLYSIS 20 (0-50); Potassium 3.7 mmol/L (3.4-5.1); Sodium 142 mmol/L (137-145)
== END ==
PROVIDERS: PCP Nurse Practitioner Family; Visit Provider Nurse Practitioner Family
DX: R60.9 Edema, unspecified (principal); N18.9 Chronic kidney disease, unspecified
CPT/HCPCS: 36415; 80048